=== PATIENT | male | born 1945 | race Caucasian/White ===

== ENCOUNTER → 2016-08-27 | Outpatient (CLI) | payer MEDICARE, BC ==
--- NOTE | 2016-08-27 13:49 | REP ---
Chest two views HISTORY: Dyspnea Comparison: 01/12/2016 The lungs are clear. The heart is normal in size. The pulmonary vasculature is normal in appearance. Degenerative change is present in the thoracic spine. IMPRESSION: No acute disease.
== END ==
LOC: M CLY 12:29
PROVIDERS: ATTEND Family Medicine
DX: C34.92 Malignant neoplasm of unspecified part of left bronchus or lung (principal); R06.09 Other forms of dyspnea
CPT/HCPCS: 71020; 80048; 85027; G0463

== ENCOUNTER → 2016-08-27 | Outpatient (REF) | payer MEDICARE, BC ==
[2016-08-27 17:32] LABS: MEAN CORPUSCULAR HEMOGLOBIN 23.8 pg (27.0-33.0); MEAN CORPUSCULAR HGB CONC 29.1 g/dl (32.0-36.5); MEAN CORPUSCULAR VOLUME 81.8 fl (80.0-96.0); RED CELL DISTRIBUTION WIDTH 17.6 % (11.5-14.5); WHITE BLOOD COUNT 6.8 K/mm3 (4.0-10.0)
[2016-08-27 17:57] LABS: ANION GAP 6 MEQ/L (8-16); BLOOD UREA NITROGEN 15 MG/DL (7-18); CALCIUM LEVEL 9.2 MG/DL (8.8-10.2); CARBON DIOXIDE LEVEL 29 MEQ/L (21-32); CHLORIDE LEVEL 104 MEQ/L (98-107); CREATININE FOR GFR 1.02 MG/DL (0.70-1.30); GLOMERULAR FILTRATION RATE > 60.0 (>42); GLUCOSE, FASTING 95 MG/DL (83-110); POTASSIUM SERUM 4.7 MEQ/L (3.5-5.1); SODIUM LEVEL 139 MEQ/L (136-145)
== END ==
LOC: M SFHCCLAY 12:16
PROVIDERS: ATTEND Family Medicine
DX: R06.09 Other forms of dyspnea (principal)

== ENCOUNTER → 2016-08-30 | Outpatient (CLI) | payer MEDICARE, BC ==
--- NOTE | 2016-08-30 15:21 | REP ---
MR BRAIN WITHOUT CONTRAST: HISTORY: Neoplasm. COMPARISON: 06/28/2013. Areas of increased signal intensity on T2-weighted images are present in the head of the left caudate nucleus and anterior limb of the left internal capsule and left cerebellum. These represent old lacunar infarctions. Areas of increased signal intensity on T2-weighted images are present in the periventricular and subcortical white matter and padmini. This represents small vessel ischemic disease. There is no intraparenchymal hemorrhage, acute infarct, mass or midline shift. The ventricular system and cortical sulci are dilated consistent with minimal volume loss. There is no extra cerebral collection. Minimal mucosal thickening is present in the left maxillary sinus. IMPRESSION: 1. 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 2. Small vessel ischemic disease. 3. Minimal volume loss. Signed by Rikki Marin MD 08/30/2016 03:30 P
== END ==
LOC: M PLARAD 13:57
PROVIDERS: ATTEND Family Medicine
DX: C34.92 Malignant neoplasm of unspecified part of left bronchus or lung (principal); G25.81 Restless legs syndrome

== ENCOUNTER → 2016-09-09 | Outpatient (REF) | payer MEDICARE, BC ==
[2016-09-09 17:28] LABS: FOLATE > 24.0 NG/ML (>5.4); VITAMIN B12 LEVEL 542 PG/ML (247-911)
[2016-09-09 18:12] LABS: PERCENT SATURATION 4.3 % (19.7-37.4); TOTAL IRON BINDING CAPACITY 437 UG/DL (250-450)
== END ==
LOC: M SFHCCLAY 10:55
PROVIDERS: ATTEND Family Medicine
DX: D64.9 Anemia, unspecified (principal)

== ENCOUNTER → 2016-09-12 | Outpatient (REF) | payer MEDICARE, BC ==
[2016-09-13 12:39] LABS: CREATININE FOR GFR 1.31 MG/DL (0.70-1.30); GLOMERULAR FILTRATION RATE 57.1 (>42)
== END ==
LOC: M LABDRAWC 11:31
PROVIDERS: ATTEND Psychiatry & Neurology Neurology
DX: N18.2 Chronic kidney disease, stage 2 (mild) (principal); D50.9 Iron deficiency anemia, unspecified; I12.9 Hypertensive chronic kidney disease with stage 1 through stage 4 chronic kidney disease, or unspecified chronic kidney disease

== ENCOUNTER → 2016-10-16 | Outpatient (REF) | payer MEDICARE, BC ==
[2016-10-17 11:46] LABS: MEAN CORPUSCULAR HEMOGLOBIN 26.2 pg (27.0-33.0); MEAN CORPUSCULAR HGB CONC 30.8 g/dl (32.0-36.5); WHITE BLOOD COUNT 7.7 K/mm3 (4.0-10.0)
== END ==
LOC: M SFHCCLAY 14:47
PROVIDERS: ATTEND Family Medicine
DX: D50.9 Iron deficiency anemia, unspecified (principal)
CPT/HCPCS: 83540; 83735; 85027; G0463

== ENCOUNTER → 2016-11-06 | Outpatient (CLI) | payer MEDICARE, BC ==
[~2016-11-06] MED LIST: E-Z-PAQUE 96% w/w SUSP 176GM BTL As Ordered ONE
--- NOTE | 2016-11-06 21:07 | REP ---
SMALL BOWEL FOLLOW THROUGH: The procedure was performed by FELIX White under the direct supervision of Dr. Schwab. All imaging was reviewed with Dr. Schwab prior to dictation. Standard barium and small bowel series was performed with multiple overhead radiographs. In addition the small bowel was fluoroscopically examined. Findings: The small bowel was normal in course and caliber. There are no intrinsic or extrinsic mass lesions identified. The transit time was approximately 30 minutes. The terminal ileum appears normal under fluoroscopic examination. IMPRESSION: Unremarkable small bowel series Fluoroscopy time 2 minutes and 38 seconds. Reviewed by FELIX Ferreira 11/07/2016 11:13 AEdited and Signed by Bishop Schwab MD 11/07/2016 03:08 P
== END ==
LOC: M RAD 07:50
PROVIDERS: ATTEND Physician Assistant
DX: D64.89 Other specified anemias (principal)

== ENCOUNTER → 2016-11-27 | Outpatient (REF) | payer MEDICARE, BC ==
[2016-11-27 19:50] LABS: BLOOD UREA NITROGEN 15 MG/DL (7-18); CREATININE FOR GFR 1.04 MG/DL (0.70-1.30); FERRITIN 22 NG/ML (26-388); GLOMERULAR FILTRATION RATE > 60.0 (>42)
== END ==
LOC: M LABDRAWC 16:06
PROVIDERS: ATTEND Psychiatry & Neurology Neurology
DX: D50.9 Iron deficiency anemia, unspecified (principal); I10 Essential (primary) hypertension

== ENCOUNTER → 2016-12-31 | Outpatient (REF) | payer MEDICARE, BC ==
[2016-12-31 19:12] LABS: VITAMIN B12 LEVEL 649 PG/ML (247-911)
[2016-12-31 19:32] LABS: FERRITIN 22 NG/ML (26-388); PERCENT SATURATION 30.3 % (19.7-50.0); TOTAL IRON BINDING CAPACITY 379 UG/DL (250-450); TOTAL PROTEIN 6.8 GM/DL (6.4-8.2)
[2017-01-02 11:10] LABS: ALBUMIN % 56.4 % (55.8-66.1)
[2017-01-02 11:11] LABS: ALBUMIN 3.84 GM/DL (3.29-5.55); GAMMA GLOBULIN % 10.8 % (11.1-18.8)
[2017-01-03 00:06] LABS: ENDOMYSIAL ABY IgA Negative (Negative)
== END ==
LOC: M LAB REF 17:12
PROVIDERS: ATTEND Internal Medicine Medical Oncology
DX: D50.9 Iron deficiency anemia, unspecified (principal)

== ENCOUNTER → 2017-01-28 | Outpatient (REF) | payer MEDICARE, BC | LOC: M SFHCCLAY 15:50 | PROVIDERS: ATTEND Family Medicine | DX: E11.9 Type 2 diabetes mellitus without complications (principal); Z23 Encounter for immunization | CPT/HCPCS: 83036; 90686; G0008; G0463 ==

== ENCOUNTER → 2017-02-10 | Outpatient (REF) | payer MEDICARE, BC ==
[2017-02-10 14:20] LABS: PERCENT SATURATION 36.6 % (19.7-50.0)
== END ==
LOC: M LAB REF 12:41
PROVIDERS: ATTEND Internal Medicine Medical Oncology
DX: D50.9 Iron deficiency anemia, unspecified (principal)

== ENCOUNTER → 2017-05-12 | Outpatient (REF) | payer MEDICARE, BC ==
[2017-05-12 18:53] LABS: BASO # 0.1 10^3/uL (0.0-0.2); EOS # 0.3 10^3/uL (0.0-0.50); EOS % 3.8 % (0.0-3.0); HEMATOCRIT 41.1 % (42.0-52.0); HEMOGLOBIN 13.8 g/dl (14.0-18.0); IMMATURE GRANULOCYTE % 0.4 % (0-3.0); LYMPH # 1.9 10^3/uL (1.5-4.5); LYMPH % 27.4 % (24.0-44.0); MEAN CORPUSCULAR HEMOGLOBIN 32.8 pg (27.0-33.0); MEAN CORPUSCULAR HGB CONC 33.6 g/dl (32.0-36.5); MEAN CORPUSCULAR VOLUME 97.6 fl (80.0-96.0); MONO # 0.6 10^3/uL (0.0-0.8); MONO % 9.1 % (0.0-5.0); NEUTROPHILS % 58.3 % (36.0-66.0); PLATELET COUNT, AUTOMATED 303 10^3/uL (150-450); RED BLOOD COUNT 4.21 10^6/uL (4.30-6.10); RED CELL DISTRIBUTION WIDTH 14.5 % (11.5-14.5); WHITE BLOOD COUNT 6.8 10^3/uL (4.0-10.0)
[2017-05-12 19:01] LABS: FERRITIN 74 NG/ML (26-388); IRON (FE) 104 UG/DL (65-175); TOTAL IRON BINDING CAPACITY 325 UG/DL (250-450)
== END ==
LOC: M LABDRAWC 17:45
DX: D50.9 Iron deficiency anemia, unspecified (principal); E11.9 Type 2 diabetes mellitus without complications
CPT/HCPCS: 83550

== ENCOUNTER → 2017-05-12 | Outpatient (REF) | payer MEDICARE, BC ==
[2017-05-12 17:47] LABS: ESTIMATED AVERAGE GLUCOSE 146 MG/DL (60-110); HEMOGLOBIN A1c 6.7 %
== END ==
LOC: M SFHCCLAY 10:25
DX: E11.9 Type 2 diabetes mellitus without complications (principal)

== ENCOUNTER → 2017-05-27 | Outpatient (REF) | payer MEDICARE, BC | LOC: M LAB REF 17:20 | DX: K52.9 Noninfective gastroenteritis and colitis, unspecified (principal); R15.9 Full incontinence of feces; R10.10 Upper abdominal pain, unspecified; K22.70 Barrett's esophagus without dysplasia; K21.9 Gastro-esophageal reflux disease without esophagitis; D50.0 Iron deficiency anemia secondary to blood loss (chronic); R63.0 Anorexia | CPT/HCPCS: 83993 ==

== ENCOUNTER → 2017-05-28 | Outpatient (REF) | payer MEDICARE, BC ==
[2017-05-28 18:07] LABS: CREATININE FOR GFR 1.13 MG/DL (0.70-1.30); GLOMERULAR FILTRATION RATE > 60.0 (>42)
[2017-05-28 18:07] LABS: BLOOD UREA NITROGEN 17 MG/DL (7-18)
== END ==
LOC: M LABDRAWC 17:53
DX: D50.0 Iron deficiency anemia secondary to blood loss (chronic) (principal); R10.10 Upper abdominal pain, unspecified
CPT/HCPCS: 82565

== ENCOUNTER → 2017-05-29 | Outpatient (CLI) | payer MEDICARE, BC ==
[~2017-05-29] MED LIST changes: -E-Z-PAQUE 96% w/w SUSP 176GM BTL As Ordered ONE; +GASTROGRAFIN SOLUTION 30ML (Q9963) As Ordered; +ISOVUE-370 76% 100ML VIAL (Q9967) As Ordered
== END ==
LOC: M RAD 12:25
DX: D50.0 Iron deficiency anemia secondary to blood loss (chronic) (principal); R10.10 Upper abdominal pain, unspecified
CPT/HCPCS: Q9963

== ENCOUNTER → 2017-07-21 | Outpatient (REF) | payer MEDICARE, BC ==
[2017-07-21 14:40] LABS: FERRITIN 38 NG/ML (26-388); IRON (FE) 85 UG/DL (65-175); PERCENT SATURATION 22.7 % (19.7-50.0); TOTAL IRON BINDING CAPACITY 374 UG/DL (250-450)
== END ==
LOC: M LAB REF 13:35
DX: D50.9 Iron deficiency anemia, unspecified (principal)
CPT/HCPCS: 83550

== ENCOUNTER → 2017-10-15 | Outpatient (CLI) | payer MEDICARE, BC | LOC: M CLY 15:36 | DX: R07.81 Pleurodynia (principal); Z87.81 Personal history of (healed) traumatic fracture; R91.8 Other nonspecific abnormal finding of lung field | CPT/HCPCS: 71101; G0463 ==

== ENCOUNTER → 2017-10-21 | Outpatient (REF) | payer MEDICARE, BC ==
[2017-10-21 11:54] LABS: BASO # 0.1 10^3/uL (0.0-0.2); EOS # 0.3 10^3/uL (0.0-0.50); EOS % 3.4 % (0.0-3.0); HEMATOCRIT 41.5 % (42.0-52.0); HEMOGLOBIN 13.9 g/dl (13.5-17.5); IMMATURE GRANULOCYTE % 0.2 % (0-3.0); LYMPH # 2.2 10^3/uL (1.5-4.5); LYMPH % 25.9 % (24.0-44.0); MEAN CORPUSCULAR HEMOGLOBIN 32.7 pg (27.0-33.0); MEAN CORPUSCULAR HGB CONC 33.5 g/dl (32.0-36.5); MEAN CORPUSCULAR VOLUME 97.6 fl (80.0-96.0); MONO # 0.7 10^3/uL (0.0-0.8); MONO % 8.7 % (0.0-5.0); NEUTROPHILS # 5.1 10^3/uL (1.8-7.7); NEUTROPHILS % 60.8 % (36.0-66.0); PLATELET COUNT, AUTOMATED 368 10^3/uL (150-450); RED BLOOD COUNT 4.25 10^6/uL (4.30-6.10); RED CELL DISTRIBUTION WIDTH 13.9 % (11.5-14.5); WHITE BLOOD COUNT 8.4 10^3/uL (4.0-10.0)
[2017-10-21 12:16] LABS: VITAMIN B12 LEVEL 523 PG/ML (247-911)
[2017-10-21 12:24] LABS: FERRITIN 65 NG/ML (26-388); IRON (FE) 69 UG/DL (65-175); PERCENT SATURATION 21.8 % (19.7-50.0); TOTAL IRON BINDING CAPACITY 317 UG/DL (250-450)
[2017-10-24 00:07] LABS: Methylmalonic Acid 374 nmol/L (0-378)
== END ==
LOC: M LABDRAWC 11:42
DX: D64.9 Anemia, unspecified (principal); R07.81 Pleurodynia; E11.9 Type 2 diabetes mellitus without complications; I10 Essential (primary) hypertension; Z95.1 Presence of aortocoronary bypass graft
CPT/HCPCS: 83550

== ENCOUNTER → 2017-10-21 | Outpatient (REF) | payer MEDICARE, BC ==
[2017-10-21 12:15] LABS: ALBUMIN 3.4 GM/DL (3.2-5.2); ALBUMIN/GLOBULIN RATIO 0.97 (1.00-1.93); ALKALINE PHOSPHATASE 159 U/L (45-117); ALT/SGPT 24 U/L (12-78); ANION GAP 9 MEQ/L (8-16); AST/SGOT 16 U/L (7-37); BILIRUBIN,TOTAL 0.4 MG/DL (0.2-1.0); BLOOD UREA NITROGEN 20 MG/DL (7-18); CALCIUM LEVEL 8.9 MG/DL (8.8-10.2); CARBON DIOXIDE LEVEL 25 MEQ/L (21-32); CHLORIDE LEVEL 107 MEQ/L (98-107); CHOLESTEROL LEVEL 141 MG/DL (<200); CHOLESTEROL RISK RATIO 3.525 (<5); CREATININE FOR GFR 1.28 MG/DL (0.70-1.30); GLOMERULAR FILTRATION RATE 58.5 (>42); GLUCOSE, FASTING 91 MG/DL (70-100); HDL CHOLESTEROL 40 MG/DL (>40); NON-HDL-C 101 MG/DL; POTASSIUM SERUM 4.1 MEQ/L (3.5-5.1); SODIUM LEVEL 141 MEQ/L (136-145); TOTAL PROTEIN 6.9 GM/DL (6.4-8.2); TRIGLYCERIDES LEVEL 145 MG/DL (<150)
[2017-10-21 12:40] LABS: ESTIMATED AVERAGE GLUCOSE 137 MG/DL (60-110); HEMOGLOBIN A1c 6.4 %
== END ==
LOC: M SFHCCLAY 08:27
DX: E11.9 Type 2 diabetes mellitus without complications (principal); I10 Essential (primary) hypertension; Z95.1 Presence of aortocoronary bypass graft
CPT/HCPCS: 80053

== ENCOUNTER → 2017-12-01 | Outpatient (REF) | payer MEDICARE, BC ==
[2017-12-01 13:38] LABS: CREATININE FOR GFR 1.25 MG/DL (0.70-1.30); GLOMERULAR FILTRATION RATE > 60.0 (>42)
[2017-12-01 13:38] LABS: BLOOD UREA NITROGEN 24 MG/DL (7-18)
== END ==
LOC: M LABDRAWC 11:25
DX: Z48.812 Encounter for surgical aftercare following surgery on the circulatory system (principal)
CPT/HCPCS: 82565

== ENCOUNTER → 2018-01-01 | Outpatient (CLI) | payer MEDICARE, BC | LOC: M RAD 11:16 | DX: R91.1 Solitary pulmonary nodule (principal); Z90.2 Acquired absence of lung [part of] | CPT/HCPCS: 71250 ==

== ENCOUNTER → 2018-02-19 | Outpatient (REF) | payer MEDICARE, BC ==
[2018-02-19 17:28] LABS: BASO # 0.1 10^3/uL (0.0-0.2); BASO % 0.9 % (0.0-1.0); EOS # 0.2 10^3/uL (0.0-0.50); HEMATOCRIT 43.1 % (42.0-52.0); HEMOGLOBIN 14.3 g/dl (13.5-17.5); IMMATURE GRANULOCYTE % 0.3 % (0-3.0); LYMPH # 2.1 10^3/uL (1.5-4.5); LYMPH % 27.9 % (24.0-44.0); MEAN CORPUSCULAR HEMOGLOBIN 32.9 pg (27.0-33.0); MEAN CORPUSCULAR HGB CONC 33.2 g/dl (32.0-36.5); MEAN CORPUSCULAR VOLUME 99.1 fl (80.0-96.0); MONO # 0.5 10^3/uL (0.0-0.8); MONO % 6.7 % (0.0-5.0); NEUTROPHILS # 4.6 10^3/uL (1.8-7.7); NEUTROPHILS % 61.2 % (36.0-66.0); PLATELET COUNT, AUTOMATED 296 10^3/uL (150-450); RED BLOOD COUNT 4.35 10^6/uL (4.30-6.10); RED CELL DISTRIBUTION WIDTH 14.4 % (11.5-14.5); WHITE BLOOD COUNT 7.6 10^3/uL (4.0-10.0)
[2018-02-19 17:46] LABS: FERRITIN 36 NG/ML (26-388); IRON (FE) 91 UG/DL (65-175); TOTAL IRON BINDING CAPACITY 337 UG/DL (250-450); VITAMIN B12 LEVEL 857 PG/ML (247-911)
== END ==
LOC: M LABDRAWC 16:27
DX: D50.9 Iron deficiency anemia, unspecified (principal); Z85.118 Personal history of other malignant neoplasm of bronchus and lung
CPT/HCPCS: 83550

== ENCOUNTER → 2018-08-06 | Outpatient (REF) | payer MEDICARE, BC ==
[~2018-08-06] MED LIST changes: +ATOR80TA59 PO; +CLOP75TA2 PO; -GASTROGRAFIN SOLUTION 30ML (Q9963) As Ordered; +INDA125TA PO; -ISOVUE-370 76% 100ML VIAL (Q9967) As Ordered; +LEVE500T88 PO; +METF500T13; +MIRT30TA3; +MULTCAP PO; +NITR0.1S; +OMEP40CA2 PO; +POTA1TAB23; +SERT25TA88 PO; +TELM1TAB37 PO; +VITA100066 PO
[2018-08-06 16:56] LABS: BLOOD UREA NITROGEN 16 MG/DL (7-18); CALCIUM LEVEL 9.3 MG/DL (8.8-10.2); CARBON DIOXIDE LEVEL 30 MEQ/L (21-32); CHLORIDE LEVEL 106 MEQ/L (98-107); CHOLESTEROL LEVEL 158 MG/DL (<200); CHOLESTEROL RISK RATIO 3.674 (<5); GLOMERULAR FILTRATION RATE > 60.0 (>42); GLUCOSE, FASTING 97 MG/DL (70-100); HDL CHOLESTEROL 43 MG/DL (>40); LDL CHOLESTEROL 87 MG/DL (<100); NON-HDL-C 115 MG/DL; POTASSIUM SERUM 4.7 MEQ/L (3.5-5.1); SODIUM LEVEL 140 MEQ/L (136-145); TRIGLYCERIDES LEVEL 138 MG/DL (<150)
[2018-08-06 17:12] LABS: CREATININE, URINE 94.7 MG/DL; MALB URINE SIEMENS 5.2 MG/L; MAU/CREAT RATIO 5.4 MCG/MG (0.0-30.0)
[2018-08-06 18:24] LABS: HEMOGLOBIN A1c 6.3 %
== END ==
LOC: M SFHCCLAY 10:34
PROVIDERS: ATTEND Family Medicine
DX: E11.9 Type 2 diabetes mellitus without complications (principal); Z13.220 Encounter for screening for lipoid disorders

== ENCOUNTER → 2018-10-12 | Outpatient (CLI) | payer MEDICARE, BC ==
[~2018-10-12] MED LIST changes: +ASPI81TA85 PO; +CIDA500T2 PO; +MAGN1TAB39 PO; +MIRT1TAB16 PO; -POTA1TAB23; +POTA1TAB23 PO; +[UNRECOGNIZED DRUG - CODE] PO
--- NOTE | 2018-10-12 10:09 | REP ---
Clinical: Acute renal insufficiency. Azotemia. Technique: Real time mata scale ultrasound examination using curved array transducer. Findings: The bilateral kidneys are relatively normal in contour, size, echogenicity, and reniform shape without hydronephrosis, nephrolithiasis, cystic or renal mass lesion. Perinephric fluid collection. Right kidney measures 10.6 x 5.1 x 4.2 cm. Left kidney measures 10.6 x 4.2 x 5.2 cm. Bladder is grossly unremarkable. Impression: Normal renal ultrasound. Electronically Signed by Austin Read MD 10/12/2018 10:01 A
== END ==
LOC: M RAD 09:38
PROVIDERS: ATTEND Internal Medicine Medical Oncology
DX: R79.89 Other specified abnormal findings of blood chemistry (principal)

== ENCOUNTER → 2018-11-26 | Outpatient (REF) | payer MEDICARE, BC ==
[~2018-11-26] MED LIST changes: +FLOM0.4C39 PO
[2018-11-26 19:29] LABS: HEMOGLOBIN A1c 6.2 %
[2018-11-28 15:06] LABS: Lyme Disease IgG/IgM Antibodie <0.91 ISR (0.00-0.90); Lyme Disease IgM Ab Quantitati <0.80 index (0.00-0.79)
== END ==
LOC: M SFHCCLAY 10:17
PROVIDERS: ATTEND Family Medicine
DX: E11.9 Type 2 diabetes mellitus without complications (principal); A69.20 Lyme disease, unspecified

== ENCOUNTER → 2019-02-22 | Outpatient (CLI) | payer MEDICARE, BC ==
[~2019-02-22] MED LIST changes: +IRONTAB3 PO; -OMEP40CA2 PO; +OMEP40CA97 PO; +SERT25TA21 PO; -SERT25TA88 PO
[2019-02-22 12:31] LABS: BASO # 0.1 10^3/uL (0.0-0.2); BASO % 1.1 % (0.0-1.0); EOS # 0.3 10^3/uL (0.0-0.5); EOS % 2.8 % (0.0-3.0); HEMATOCRIT 38.7 % (42.0-52.0); HEMOGLOBIN 12.3 g/dl (13.5-17.5); LYMPH % 21.1 % (24.0-44.0); MEAN CORPUSCULAR HEMOGLOBIN 31.3 pg (27.0-33.0); MEAN CORPUSCULAR HGB CONC 31.8 g/dl (32.0-36.5); MEAN CORPUSCULAR VOLUME 98.5 fl (80.0-96.0); MONO # 0.9 10^3/uL (0.0-0.8); MONO % 9.2 % (0.0-5.0); NEUTROPHILS # 6.1 10^3/uL (1.5-8.5); NEUTROPHILS % 65.5 % (36.0-66.0); PLATELET COUNT, AUTOMATED 384 10^3/uL (150-450); RED BLOOD COUNT 3.93 10^6/uL (4.30-6.10); WHITE BLOOD COUNT 9.3 10^3/uL (4.0-10.0)
[2019-02-22 12:36] LABS: INR 0.98; PARTIAL THROMBOPLASTIN TIME 36.1 SECONDS (25.0-38.4); PROTHROMBIN TIME 12.7 SECONDS (11.8-14.0)
[2019-02-22 12:52] LABS: CALCIUM LEVEL 9.7 MG/DL (8.8-10.2); CREATININE FOR GFR 1.4 MG/DL (0.70-1.30); GLOMERULAR FILTRATION RATE 52.6 (>42); POTASSIUM SERUM 4.9 MEQ/L (3.5-5.1)
== END ==
LOC: M LAB 11:35
PROVIDERS: ATTEND Surgery Vascular Surgery
DX: Z01.818 Encounter for other preprocedural examination (principal); D69.8 Other specified hemorrhagic conditions

== ENCOUNTER → 2019-03-26 | Outpatient (REF) | payer MEDICARE, BC | LOC: M SFHCCLAY 12:12 | PROVIDERS: ATTEND Family Medicine | DX: Z12.5 Encounter for screening for malignant neoplasm of prostate (principal); E11.9 Type 2 diabetes mellitus without complications; Z53.8 Procedure and treatment not carried out for other reasons ==

== ENCOUNTER → 2019-03-29 | Outpatient (REF) | payer MEDICARE, BC ==
[2019-03-29 16:59] LABS: CALCIUM LEVEL 9.8 MG/DL (8.8-10.2); CREATININE FOR GFR 1.29 MG/DL (0.70-1.30); GLOMERULAR FILTRATION RATE 57.8 (>42); POTASSIUM SERUM 5.3 MEQ/L (3.5-5.1)
[2019-03-29 18:16] LABS: HEMOGLOBIN A1c 6.7 %
== END ==
LOC: M SFHCCLAY 11:51
PROVIDERS: ATTEND Family Medicine
DX: Z12.5 Encounter for screening for malignant neoplasm of prostate (principal); E11.9 Type 2 diabetes mellitus without complications
CPT/HCPCS: 80048; 83036; G0103

== ENCOUNTER → 2019-03-31 | Outpatient (REF) | payer MEDICARE, BC | LOC: M SFHCCLAY 09:02 | PROVIDERS: ATTEND Family Medicine | DX: E87.5 Hyperkalemia (principal) ==

== ENCOUNTER → 2019-06-22 | Outpatient (REF) | payer MEDICARE, BC ==
[~2019-06-22] MED LIST changes: +FINA5TAB2 PO
[2019-06-22 17:07] LABS: CALCIUM LEVEL 9.1 MG/DL (8.8-10.2); CREATININE FOR GFR 1.45 MG/DL (0.70-1.30); GLOMERULAR FILTRATION RATE 50.4 (>42); POTASSIUM SERUM 4.8 MEQ/L (3.5-5.1)
[2019-06-22 17:08] LABS: BASO # 0.1 10^3/uL (0.0-0.2); BASO % 1.3 % (0.0-1.0); EOS # 0.3 10^3/uL (0.0-0.5); EOS % 3.2 % (0.0-3.0); HEMATOCRIT 29.7 % (42.0-52.0); HEMOGLOBIN 9.4 g/dl (13.5-17.5); LYMPH # 1.5 10^3/uL (1.5-5.0); LYMPH % 17.1 % (24.0-44.0); MEAN CORPUSCULAR HEMOGLOBIN 29.2 pg (27.0-33.0); MEAN CORPUSCULAR HGB CONC 31.6 g/dl (32.0-36.5); MEAN CORPUSCULAR VOLUME 92.2 fl (80.0-96.0); MONO # 1.2 10^3/uL (0.0-0.8); MONO % 13.7 % (0.0-5.0); NEUTROPHILS # 5.8 10^3/uL (1.5-8.5); NEUTROPHILS % 64.5 % (36.0-66.0); PLATELET COUNT, AUTOMATED 624 10^3/uL (150-450); RED BLOOD COUNT 3.22 10^6/uL (4.30-6.10)
== END ==
LOC: M SFHCCLAY 11:28
PROVIDERS: ATTEND Family Medicine
DX: D64.9 Anemia, unspecified (principal); I10 Essential (primary) hypertension
CPT/HCPCS: 80048; 83540; 85025; G0463

== ENCOUNTER → 2019-06-29 | Outpatient (CLI) | payer MEDICARE, BC ==
[~2019-06-29] MED LIST changes: +ISOVUE-370 76% 100ML VIAL (Q9967) As Ordered ONE
--- NOTE | 2019-06-29 12:05 | REP ---
REASON FOR EXAM: Dyspnea. COMPARISON: 07/24/2018, the latest prior. CONTRAST: 100 mL Isovue 370. There is excellent visualization of the pulmonary arterial vasculature. There are no focal filling defects present that would be considered consistent with pulmonary emboli. There is no mediastinal or hilar adenopathy. There are no pleural or pericardial effusions. The imaged upper abdomen is within normal limits. The proximal portion of an aortic stent graft is visualized. Bone window technique throughout the exam shows the osseous structures to be stable from the prior exam. There are old healed left sided rib fractures. Evaluation of the lung ayoub show stable appearing chronic changes. There are bibasilar opacities most consistent with subsegmental atelectatic changes and chronic lung base changes which appear stable. No new parenchymal abnormalities are identified. IMPRESSION: 1. There is no evidence of a pulmonary embolism. 2. There are some chronic lung field changes which appear stable and other lung field changes as described above. There is no evidence of acute disease. Electronically Signed by Gilberto Zuniga DO 06/29/2019 12:32 P
== END ==
LOC: M RAD 10:35
PROVIDERS: ATTEND Internal Medicine Medical Oncology
DX: R06.02 Shortness of breath (principal); R00.2 Palpitations; Z95.5 Presence of coronary angioplasty implant and graft
CPT/HCPCS: 71275; Q9967

== ENCOUNTER → 2019-07-12 | Outpatient (REF) | payer MEDICARE, BC ==
[~2019-07-12] MED LIST changes: -ISOVUE-370 76% 100ML VIAL (Q9967) As Ordered ONE
[2019-07-12 11:36] LABS: HEMATOCRIT 30.1 % (42.0-52.0); HEMOGLOBIN 9.4 g/dl (13.5-17.5); MEAN CORPUSCULAR HEMOGLOBIN 29.7 pg (27.0-33.0); MEAN CORPUSCULAR HGB CONC 31.2 g/dl (32.0-36.5); MEAN CORPUSCULAR VOLUME 95.3 fl (80.0-96.0); PLATELET COUNT, AUTOMATED 555 10^3/uL (150-450); RED BLOOD COUNT 3.16 10^6/uL (4.30-6.10); WHITE BLOOD COUNT 11.1 10^3/uL (4.0-10.0)
[2019-07-12 11:53] LABS: BLOOD UREA NITROGEN 30 MG/DL (7-18); CALCIUM LEVEL 9.8 MG/DL (8.8-10.2); CARBON DIOXIDE LEVEL 26 MEQ/L (21-32); CHLORIDE LEVEL 103 MEQ/L (98-107); CREATININE FOR GFR 1.18 MG/DL (0.70-1.30); GLOMERULAR FILTRATION RATE > 60.0 (>42); GLUCOSE, FASTING 93 MG/DL (70-100); IRON (FE) 56 UG/DL (65-175); POTASSIUM SERUM 4.4 MEQ/L (3.5-5.1); SODIUM LEVEL 136 MEQ/L (136-145)
[2019-07-12 12:28] LABS: HEMOGLOBIN A1c 6.2 %
== END ==
LOC: M SFHCCLAY 08:31
PROVIDERS: ATTEND Family Medicine
DX: D50.9 Iron deficiency anemia, unspecified (principal); E11.9 Type 2 diabetes mellitus without complications

== ENCOUNTER → 2019-07-20 | Outpatient (REF) | payer MEDICARE, BC ==
[2019-07-20 12:25] LABS: BLOOD UREA NITROGEN 28 MG/DL (7-18); CALCIUM LEVEL 9.6 MG/DL (8.8-10.2); CARBON DIOXIDE LEVEL 25 MEQ/L (21-32); CHLORIDE LEVEL 104 MEQ/L (98-107); CREATININE FOR GFR 1.21 MG/DL (0.70-1.30); GLOMERULAR FILTRATION RATE > 60.0 (>42); GLUCOSE, FASTING 95 MG/DL (70-100); POTASSIUM SERUM 4.6 MEQ/L (3.5-5.1); SODIUM LEVEL 136 MEQ/L (136-145)
== END ==
LOC: M LABDRAWC 11:28
PROVIDERS: ATTEND Internal Medicine Gastroenterology
DX: D50.9 Iron deficiency anemia, unspecified (principal); K22.70 Barrett's esophagus without dysplasia; R13.10 Dysphagia, unspecified; Z86.010 Personal history of colon polyps; E11.9 Type 2 diabetes mellitus without complications

== ENCOUNTER → 2019-07-20 | Outpatient (REF) | payer MEDICARE, BC ==
[2019-07-20 12:02] LABS: HEMATOCRIT 28.6 % (42.0-52.0); HEMOGLOBIN 8.8 g/dl (13.5-17.5); MEAN CORPUSCULAR HEMOGLOBIN 30.3 pg (27.0-33.0); MEAN CORPUSCULAR HGB CONC 30.8 g/dl (32.0-36.5); MEAN CORPUSCULAR VOLUME 98.6 fl (80.0-96.0); PLATELET COUNT, AUTOMATED 568 10^3/uL (150-450); WHITE BLOOD COUNT 9.3 10^3/uL (4.0-10.0)
== END ==
LOC: M SFHCCLAY 07:58
PROVIDERS: ATTEND Family Medicine
DX: Z01.818 Encounter for other preprocedural examination (principal); D50.9 Iron deficiency anemia, unspecified; Z11.59 Encounter for screening for other viral diseases
CPT/HCPCS: 85027; U0002

== ENCOUNTER → 2019-07-28 | Outpatient (REF) | payer MEDICARE, BC ==
[2019-07-28 11:36] LABS: HEMOGLOBIN 9.9 g/dl (13.5-17.5); MEAN CORPUSCULAR HEMOGLOBIN 31.2 pg (27.0-33.0); MEAN CORPUSCULAR HGB CONC 30.9 g/dl (32.0-36.5); MEAN CORPUSCULAR VOLUME 100.9 fl (80.0-96.0); PLATELET COUNT, AUTOMATED 479 10^3/uL (150-450); RED BLOOD COUNT 3.17 10^6/uL (4.30-6.10); WHITE BLOOD COUNT 8.2 10^3/uL (4.0-10.0)
[2019-07-28 11:40] LABS: CALCIUM LEVEL 9.3 MG/DL (8.8-10.2); CREATININE FOR GFR 1.38 MG/DL (0.70-1.30); GLOMERULAR FILTRATION RATE 53.3 (>42); POTASSIUM SERUM 4.5 MEQ/L (3.5-5.1)
== END ==
LOC: M SFHCCLAY 09:17
PROVIDERS: ATTEND Family Medicine
DX: D50.9 Iron deficiency anemia, unspecified (principal)

== ENCOUNTER → 2019-08-06 | Outpatient (CLI) | payer MEDICARE, BC ==
[~2019-08-06] MED LIST changes: +E-Z-HD 98% w/w 340GM SUSP BTL As Ordered ONE; +E-Z-PAQUE 96% w/w SUSP 176GM BTL As Ordered ONE; +EMER1CHW PO
--- NOTE | 2019-08-06 16:21 | REP ---
Small bowel follow-through The procedure was performed under the direct supervision of Dr. Schwab. The images were reviewed with Dr. Schwab. The insulator tester film shows no organomegaly or pathological masses. The intestinal gas pattern is nonspecific. The patient is status post aortic stent graft. Liquid barium was administered and the barium column was followed through the small bowel to the level of the terminal ileum. Small bowel transit time is approximately 5 hours and 35 minutes . During fluoroscopy gentle palpation shows all loops are freely movable and pliable. There are no fixed or angulated loops. The small bowel mucosal pattern is normal in course and caliber. There is no transition to suggest a partial small bowel obstruction. Spot filming of the terminal ileum shows it to be unremarkable. Impression: Small bowel follow-through examination within normal limits. 1.2 minutes of fluoro time was utilized for this procedure. Electronically Signed by FELIX Youngblood 08/06/2019 04:11 P Electronically Signed by Bishop Schwab MD 08/06/2019 04:12 P
== END ==
LOC: M RAD 07:54
PROVIDERS: ATTEND Internal Medicine Gastroenterology
DX: D50.9 Iron deficiency anemia, unspecified (principal)

== ENCOUNTER → 2019-08-11 | Outpatient (REF) | payer MEDICARE, BC ==
[~2019-08-11] MED LIST changes: -E-Z-HD 98% w/w 340GM SUSP BTL As Ordered ONE; -E-Z-PAQUE 96% w/w SUSP 176GM BTL As Ordered ONE
== END ==
LOC: M SFHCCLAY 08:20
PROVIDERS: ATTEND Family Medicine
DX: D50.0 Iron deficiency anemia secondary to blood loss (chronic) (principal)

== ENCOUNTER → 2019-08-12 | Outpatient (REF) | payer MEDICARE, BC ==
[2019-08-12 18:24] LABS: BLOOD UREA NITROGEN 16 MG/DL (7-18); CALCIUM LEVEL 9.2 MG/DL (8.8-10.2); CARBON DIOXIDE LEVEL 27 MEQ/L (21-32); CHLORIDE LEVEL 105 MEQ/L (98-107); GLOMERULAR FILTRATION RATE > 60.0 (>42); GLUCOSE, FASTING 112 MG/DL (70-100); IRON (FE) 54 UG/DL (65-175); POTASSIUM SERUM 4.5 MEQ/L (3.5-5.1); SODIUM LEVEL 137 MEQ/L (136-145)
[2019-08-12 18:30] LABS: HEMATOCRIT 36.2 % (42.0-52.0); HEMOGLOBIN 10.9 g/dl (13.5-17.5); MEAN CORPUSCULAR HEMOGLOBIN 30.4 pg (27.0-33.0); MEAN CORPUSCULAR HGB CONC 30.1 g/dl (32.0-36.5); MEAN CORPUSCULAR VOLUME 101.1 fl (80.0-96.0); PLATELET COUNT, AUTOMATED 486 10^3/uL (150-450); RED BLOOD COUNT 3.58 10^6/uL (4.30-6.10); WHITE BLOOD COUNT 7.9 10^3/uL (4.0-10.0)
== END ==
LOC: M SFHCCLAY 09:40
PROVIDERS: ATTEND Family Medicine
DX: D50.0 Iron deficiency anemia secondary to blood loss (chronic) (principal)

== ENCOUNTER → 2019-09-03 | Outpatient (REF) | payer MEDICARE, BC ==
[~2019-09-03] MED LIST changes: +ASPI-161 PO; -ASPI81TA85 PO; +ASPI81TA86 PO; +C 50TAB PO; +D31000TA2 PO; +FERR1TAB8 PO; +GLUCTAB6 PO; +KEYT1INJ IV; +MAGN64TASA PO; -METF500T13; +METF500T13 PO; +PATIENT COMMENT; +POTA10TA14 PO; +PRED10TA2 PO; +QUES4POW PO; +REME30TA PO; +VITMTA PO; +[UNRECOGNIZED DRUG - CODE] SL
[2019-09-03 11:57] LABS: HEMATOCRIT 32.9 % (42.0-52.0); HEMOGLOBIN 10.3 g/dl (13.5-17.5); MEAN CORPUSCULAR HEMOGLOBIN 30.5 pg (27.0-33.0); MEAN CORPUSCULAR HGB CONC 31.3 g/dl (32.0-36.5); MEAN CORPUSCULAR VOLUME 97.3 fl (80.0-96.0); PLATELET COUNT, AUTOMATED 426 10^3/uL (150-450); RED BLOOD COUNT 3.38 10^6/uL (4.30-6.10); WHITE BLOOD COUNT 8.4 10^3/uL (4.0-10.0)
== END ==
LOC: M SFHCCLAY 11:18
PROVIDERS: ATTEND Family Medicine
DX: K92.2 Gastrointestinal hemorrhage, unspecified (principal); D64.9 Anemia, unspecified
CPT/HCPCS: 36415; 83540; 85027; G0463

== ENCOUNTER 2019-09-09 09:00 | Outpatient (CLI) | payer MEDICARE, BC ==
[~2019-09-09] VITALS: Ht 172.7 cm; Wt 72.7 kg
[~2019-09-09 09:00] MED LIST changes: -ASPI-161 PO; +ASPI81TA85 PO; -ASPI81TA86 PO; -C 50TAB PO; -D31000TA2 PO; -FERR1TAB8 PO; -GLUCTAB6 PO; -KEYT1INJ IV; -MAGN64TASA PO; +METF500T13; -METF500T13 PO; -PATIENT COMMENT; -POTA10TA14 PO; -PRED10TA2 PO; -QUES4POW PO; -REME30TA PO; -VITMTA PO; -[UNRECOGNIZED DRUG - CODE] SL
[2019-09-09] MEDS ORDERED: IRON SUCROSE 500 MG in NS 250 ML IV ONE (09:15)
[2019-09-09 09:20] VITALS: BP 176/78
[2019-09-09 09:53] VITALS: BP 128/68
[2019-09-09 10:55] VITALS: BP 131/70
[2019-09-09 12:00] VITALS: BP 139/74
[2019-09-09 12:45] VITALS: BP 150/65
== END 2019-09-09 12:45 | disposition home or self-care (01) ==
LOC: M INFU 09:00
PROVIDERS: ATTEND Family Medicine
DX: D50.9 Iron deficiency anemia, unspecified (principal); K92.2 Gastrointestinal hemorrhage, unspecified; Z88.8 Allergy status to other drugs, medicaments and biological substances
CPT/HCPCS: 96365; 96366; J1756

== ENCOUNTER → 2019-09-20 | Outpatient (REF) | payer MEDICARE, BC ==
[~2019-09-20] MED LIST changes: +ASPI-161 PO; -ASPI81TA85 PO; +ASPI81TA86 PO; +C 50TAB PO; +D31000TA2 PO; +FERR1TAB8 PO; +GLUCTAB6 PO; +KEYT1INJ IV; +MAGN64TASA PO; -METF500T13; +METF500T13 PO; +PATIENT COMMENT; +POTA10TA14 PO; +PRED10TA2 PO; +QUES4POW PO; +REME30TA PO; +VITMTA PO; +[UNRECOGNIZED DRUG - CODE] SL
[2019-09-20 12:58] LABS: HEMATOCRIT 36.7 % (42.0-52.0); HEMOGLOBIN 11.3 g/dl (13.5-17.5); MEAN CORPUSCULAR HEMOGLOBIN 30.9 pg (27.0-33.0); MEAN CORPUSCULAR HGB CONC 30.8 g/dl (32.0-36.5); MEAN CORPUSCULAR VOLUME 100.3 fl (80.0-96.0); PLATELET COUNT, AUTOMATED 434 10^3/uL (150-450); RED BLOOD COUNT 3.66 10^6/uL (4.30-6.10); WHITE BLOOD COUNT 9.1 10^3/uL (4.0-10.0)
[2019-09-23 15:09] LABS: BRUCELLA ABORTUS ANTIBODY Negative (Negative); E CHAFFEENSIS IgG TITER Negative (Neg:<1:64); E CHAFFEENSIS IgM TITER Negative (Neg:<1:20); HUMAN GRANULCYTIC EHRLIC IgG Negative (Neg:<1:64); HUMAN GRANULCYTIC EHRLIC IgM Negative (Neg:<1:20); IgG P18 AB Absent (.); IgG P23 AB Absent (.); IgG P28 AB Absent (.); IgG P30 AB Absent (.); IgG P39 AB Absent (.); IgG P41 AB Present (.); IgG P45 AB Absent (.); IgG P66 AB Absent (.); IgG P93 AB Absent (.); IgM P23 AB Absent (.); IgM P39 AB Absent (.); IgM P41 AB Absent (.); LYME IgG WB INTERPRETATION Negative (.); LYME IgM WB INTERPRETATION Negative (.)
== END ==
LOC: M SFHCCLAY 07:28
PROVIDERS: ATTEND Family Medicine
DX: D50.0 Iron deficiency anemia secondary to blood loss (chronic) (principal)

== ENCOUNTER 2019-09-30 09:19 | Outpatient (CLI) | payer MEDICARE, BC ==
[~2019-09-30] VITALS: Ht 172.7 cm; Wt 72.0 kg
[~2019-09-30 09:19] MED LIST changes: -ASPI-161 PO; -C 50TAB PO; -D31000TA2 PO; -FERR1TAB8 PO; -GLUCTAB6 PO; -KEYT1INJ IV; -MAGN64TASA PO; -PATIENT COMMENT; -POTA10TA14 PO; -PRED10TA2 PO; -QUES4POW PO; -REME30TA PO; -VITMTA PO; -[UNRECOGNIZED DRUG - CODE] SL
[2019-09-30] MEDS ORDERED: IRON SUCROSE 500 MG in NS 250 ML IV ONE (09:45)
[2019-09-30 09:59] VITALS: BP 161/67
[2019-09-30 11:20] VITALS: BP 136/62
[2019-09-30 12:30] VITALS: BP 141/68
[2019-09-30 13:30] VITALS: BP 152/70
[2019-09-30 14:30] VITALS: BP 130/58
[2020-01-25] MEDS ORDERED: PRED10TA2 PO (13:30)
== END 2019-09-30 14:35 | disposition home or self-care (01) ==
LOC: M INFU 09:19
PROVIDERS: ATTEND Family Medicine
DX: D50.9 Iron deficiency anemia, unspecified (principal); Z79.899 Other long term (current) drug therapy
CPT/HCPCS: 96365; 96366; J1756

== ENCOUNTER → 2019-10-20 | Outpatient (REF) | payer MEDICARE, BC ==
[~2019-10-20] MED LIST changes: +ASPI-161 PO; +C 50TAB PO; +D31000TA2 PO; +FERR1TAB8 PO; +GLUCTAB6 PO; +KEYT1INJ IV; +MAGN64TASA PO; +PATIENT COMMENT; +POTA10TA14 PO; +PRED10TA2 PO; +QUES4POW PO; +REME30TA PO; +VITMTA PO; +[UNRECOGNIZED DRUG - CODE] SL
[2019-11-18 10:51] LABS: HEMATOCRIT 37.9 % (42.0-52.0); MEAN CORPUSCULAR HEMOGLOBIN 31.6 pg (27.0-33.0); MEAN CORPUSCULAR HGB CONC 31.7 g/dl (32.0-36.5); MEAN CORPUSCULAR VOLUME 99.7 fl (80.0-96.0); PLATELET COUNT, AUTOMATED 422 10^3/uL (150-450); WHITE BLOOD COUNT 9.6 10^3/uL (4.0-10.0)
[2019-12-04 12:15] LABS: PERCENT SATURATION 18.3 % (19.7-50.0)
== END ==
LOC: M SFHCCLAY 11:54
PROVIDERS: ATTEND Family Medicine
DX: D50.9 Iron deficiency anemia, unspecified (principal)

== ENCOUNTER → 2019-11-16 | Outpatient (REF) | payer MEDICARE, BC ==
[2019-11-16 14:21] LABS: HEMATOCRIT 33.3 % (42.0-52.0); HEMOGLOBIN 10.8 g/dl (13.5-17.5); MEAN CORPUSCULAR HEMOGLOBIN 32.4 pg (27.0-33.0); MEAN CORPUSCULAR HGB CONC 32.4 g/dl (32.0-36.5); PLATELET COUNT, AUTOMATED 472 10^3/uL (150-450); RED BLOOD COUNT 3.33 10^6/uL (4.30-6.10); WHITE BLOOD COUNT 8.3 10^3/uL (4.0-10.0)
== END ==
LOC: M LABDRAWC 08:55
PROVIDERS: ATTEND Family Medicine
DX: D50.0 Iron deficiency anemia secondary to blood loss (chronic) (principal)

== ENCOUNTER → 2019-12-02 | Outpatient (REF) | payer MEDICARE, BC ==
[2019-12-02 17:05] LABS: PERCENT SATURATION 33.4 % (19.7-50.0)
[2019-12-02 17:08] LABS: HEMOGLOBIN 11.6 g/dl (13.5-17.5); MEAN CORPUSCULAR HEMOGLOBIN 31.6 pg (27.0-33.0); MEAN CORPUSCULAR HGB CONC 31.4 g/dl (32.0-36.5); MEAN CORPUSCULAR VOLUME 100.8 fl (80.0-96.0); PLATELET COUNT, AUTOMATED 434 10^3/uL (150-450); RED BLOOD COUNT 3.67 10^6/uL (4.30-6.10); WHITE BLOOD COUNT 9.7 10^3/uL (4.0-10.0)
== END ==
LOC: M SFHCCLAY 15:56
PROVIDERS: ATTEND Family Medicine
DX: D64.9 Anemia, unspecified (principal)

== ENCOUNTER 2019-12-15 14:49 | Inpatient (IN) | payer MEDICARE, BC ==
[~2019-12-15] VITALS: Ht 172.7 cm; Wt 64.8 kg
[~2019-12-15 14:49] MED LIST changes: -ASPI-161 PO; -C 50TAB PO; -D31000TA2 PO; -FERR1TAB8 PO; -GLUCTAB6 PO; -KEYT1INJ IV; -MAGN64TASA PO; -PATIENT COMMENT; -POTA10TA14 PO; -PRED10TA2 PO; -QUES4POW PO; -REME30TA PO; -VITMTA PO; -[UNRECOGNIZED DRUG - CODE] SL
[2019-12-15] MEDS ORDERED: KEYT1INJ IV ×2 (15:06→22:13)
[2019-12-15 16:09] LABS: BASO # 0.1 10^3/uL (0.0-0.2); BASO % 0.7 % (0.0-1.0); EOS # 0.3 10^3/uL (0.0-0.5); EOS % 2.9 % (0.0-3.0); HEMOGLOBIN 9.9 g/dl (13.5-17.5); LYMPH # 1.1 10^3/uL (1.5-5.0); LYMPH % 12.7 % (24.0-44.0); MEAN CORPUSCULAR HEMOGLOBIN 31.7 pg (27.0-33.0); MEAN CORPUSCULAR HGB CONC 31.9 g/dl (32.0-36.5); MEAN CORPUSCULAR VOLUME 99.4 fl (80.0-96.0); MONO # 0.9 10^3/uL (0.0-0.8); MONO % 9.9 % (0.0-5.0); NEUTROPHILS # 6.5 10^3/uL (1.5-8.5); NEUTROPHILS % 73.6 % (36.0-66.0); PLATELET COUNT, AUTOMATED 410 10^3/uL (150-450); RED BLOOD COUNT 3.12 10^6/uL (4.30-6.10); WHITE BLOOD COUNT 8.9 10^3/uL (4.0-10.0)
[2019-12-15 16:33] LABS: ALBUMIN 3.4 GM/DL (3.2-5.2); ALT/SGPT 19 U/L (12-78); BILIRUBIN,DIRECT 0.1 MG/DL (0.0-0.2); BILIRUBIN,TOTAL 0.4 MG/DL (0.2-1.0); BLOOD UREA NITROGEN 13 MG/DL (7-18); CALCIUM LEVEL 8.9 MG/DL (8.8-10.2); CARBON DIOXIDE LEVEL 26 MEQ/L (21-32); CHLORIDE LEVEL 108 MEQ/L (98-107); CREATININE FOR GFR 1.11 MG/DL (0.70-1.30); GLOMERULAR FILTRATION RATE > 60.0 (>42); GLUCOSE, FASTING 88 MG/DL (70-100); LIPASE 46 U/L (73-393); MAGNESIUM LEVEL 2.4 MG/DL (1.8-2.4); POTASSIUM SERUM 4.3 MEQ/L (3.5-5.1); SODIUM LEVEL 138 MEQ/L (136-145); TOTAL PROTEIN 6.7 GM/DL (6.4-8.2)
[2019-12-15] MEDS: NS 1,000 ML IV SCH (17:06)
[2019-12-15] MEDS: GASTROGRAFIN SOLUTION 30ML PO SCH ×2 (17:28→17:49)
[2019-12-15] MEDS ORDERED: ISOVUE-370 76% 100ML VIAL As Ordered ONE (18:30)
--- NOTE | 2019-12-15 19:16 | REPVR ---
PROCEDURE INFORMATION: Exam: CT Abdomen And Pelvis With Contrast Exam date and time: 12/15/2019 6:36 PM Age: 74 years old Clinical indication: Other: Diarrhea; Abdominal pain; Localized; Right; Additional info: Right abdominal pain with diarrhea, colitis v diverticulitis TECHNIQUE: Imaging protocol: Computed tomography of the abdomen and pelvis with intravenous contrast. Radiation optimization: All CT scans at this facility use at least one of these dose optimization techniques: automated exposure control; mA and/or kV adjustment per patient size (includes targeted exams where dose is matched to clinical indication); or iterative reconstruction. Contrast material: ISOVUE 370; Contrast volume: 100 ml; Contrast route: INTRAVENOUS (IV); COMPARISON: CT ABD PELVIS W/O FOL BY WIT 05/29/2017 1:46 PM FINDINGS: Lungs: Branching opacities posterior and anterior left lower lobe likely represents inspissated secretions in dilated peripheral airways. Liver: Hepatic cysts measure up to 9 mm.There is a diffuse decrease in hepatic parenchymal density, consistent with steatosis. Gallbladder and bile ducts: Normal. No calcified stones. No ductal dilation. Pancreas: Normal. No ductal dilation. Spleen: The spleen demonstrates punctate calcifications, consistent with remote granulomatous organism exposure. Adrenals: Hyperplasia. No mass. Kidneys and ureters: Normal. No hydronephrosis. Stomach and bowel: Mildly increased fluid in the left colon consistent with reported history of diarrhea. Appendix: The appendix is within normal limits. There is no appendiceal enlargement, periappendiceal inflammatory changes or abscess. Intraperitoneal space: Unremarkable. No free air. No significant fluid collection. Vasculature: Status post placement of a bifurcating endograft in the abdominal aorta. Graft is patent with normal appearance of proximal and distal anastomoses. Lymph nodes: Unremarkable. No enlarged lymph nodes. Urinary bladder: Unremarkable as visualized. Reproductive: The prostate gland demonstrates mild hyperplasia. Bones/joints: Mild central spinal stenosis L2-L3, moderate central spinal stenosis L3-L4 and L4-L5. Soft tissues: Ovoid density in the right inguinal canal may represent a superior migrated testis or fluid within an inguinal hernia. Other findings: Osteoporosis. IMPRESSION: 1. Ovoid density in the right inguinal canal may represent a superior migrated testis or fluid within an inguinal hernia. 2. Hepatic cysts measure up to 9 mm.There is a diffuse decrease in hepatic parenchymal density, consistent with steatosis. 3. Status post placement of a bifurcating endograft in the abdominal aorta. Graft is patent with normal appearance of proximal and distal anastomoses. 4. The appendix is within normal limits. There is no appendiceal enlargement, periappendiceal inflammatory changes or abscess. 5. Mildly increased fluid in the left colon consistent with reported history of diarrhea. 6. Mild prostatic hyperplasia. Electronically signed by: Rio Fragoso On 12/15/2019 19:16:06 PM
[2019-12-15 19:49] LABS: CK-MB VALUE MASS 1.4 NG/ML (<3.6); CPK CREATINE PHOSPHOKINASE 54 U/L (39-308); MB/CK RELATIVE INDEX 2.59 (< OR =4); TROPONIN I < 0.02 NG/ML (< 0.10)
[2019-12-15 20:26] LABS: CK-MB VALUE MASS 1.3 NG/ML (<3.6); CPK CREATINE PHOSPHOKINASE 51 U/L (39-308); MB/CK RELATIVE INDEX 2.55 (< OR =4); TROPONIN I < 0.02 NG/ML (< 0.10)
--- NOTE | 2019-12-15 20:49 | ECGEPIP ---
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
--- NOTE | 2019-12-15 21:40 | REPVR ---
PROCEDURE INFORMATION: Exam: US Duplex Lower Extremity Veins, Bilateral Exam date and time: 12/15/2019 9:16 PM Age: 74 years old Clinical indication: Pain; Leg, lower; Bilateral; Additional info: Lower extrem leg pain TECHNIQUE: Imaging protocol: Real-time duplex ultrasound of the extremities with 2-D mata scale, color Doppler flow and spectral waveform analysis with image documentation. Complete exam focused on the bilateral lower extremity veins. COMPARISON: No relevant prior studies available. FINDINGS: Right deep veins: Common femoral, femoral, proximal profunda femoral and popliteal veins are patent without thrombus. Normal Doppler waveforms. Normal compressibility and/or augmentation response. Right superficial veins: Saphenofemoral junction is patent without thrombus. Left deep veins: Common femoral, femoral, proximal profunda femoral and popliteal veins are patent without thrombus. Normal Doppler waveforms. Normal compressibility and/or augmentation response. Left superficial veins: Saphenofemoral junction is patent without thrombus. Soft tissues: No abnormal focal fluid collection. IMPRESSION: No evidence of deep vein thrombosis. Electronically signed by: Heladio Richard On 12/15/2019 21:40:26 PM
--- NOTE | 2019-12-15 21:40 | REPVR ---
PROCEDURE INFORMATION: Exam: US Scrotum Exam date and time: 12/15/2019 9:16 PM Age: 74 years old Clinical indication: Abnormal findings; Abnormal imaging studies, genitourinary organs; Additional info: Abnormal CT questioning right testis TECHNIQUE: Imaging protocol: Real-time ultrasound of the scrotum and contents with color Doppler and image documentation. COMPARISON: No relevant prior studies available. FINDINGS: Right testicle measures 4.0 x 2.1 x 2.8 cm in size. Right testicle appears homogeneous with no focal mass. Normal Doppler flow is present within the right testicle. Left testicle measures 4.6 x 1.8 x 2.3 cm in size. Left testicle demonstrates a 15 mm cyst and smaller adjacent cysts. Normal Doppler flow is present within the left testicle. Right and left epididymis are symmetric and have normal Doppler flow. Right epididymal head cyst measuring 7 mm Physiologic fluid volume within the scrotal sac. No bowel-containing hernia sac within the scrotum. IMPRESSION: Cystic lesion involving the left testicle measuring 15 mm, with smaller adjacent simple appearing cysts. No evidence of testicular torsion. Incidental right epididymal head cyst Electronically signed by: Heladio Richard On 12/15/2019 21:39:33 PM
[2019-12-15] MEDS ORDERED: ACETAMINOPHEN TAB 650MG DOSE (2X325MG) PO PRN (21:45)
[2019-12-15] MEDS ORDERED: MAALOX 30 ML SUSP *UDC PO PRN (21:45)
[2019-12-15] MEDS ORDERED: MOM 30ML SUSPENSION UDC PO PRN (21:45)
--- NOTE | 2019-12-15 21:50 | REPVR ---
PROCEDURE INFORMATION: Exam: US Duplex Right Lower Extremity Arteries Or Arterial Bypass Grafts Exam date and time: 12/15/2019 9:16 PM Age: 74 years old Clinical indication: Screening exam; R/O pseudoaneurysm; Additional info: R/O pseudo aneursym TECHNIQUE: Imaging protocol: Right Real-time duplex scan of the arteries or arterial bypass grafts of the right lower extremity with 2-D mata scale, color Doppler flow and spectral waveform analysis. Images documented and saved. COMPARISON: No relevant prior studies available. FINDINGS: No evidence of soft tissue hematoma or arterial pseudoaneurysm. Normal triphasic waveforms in the imaged common femoral artery, superficial femoral artery and profundus femoral artery. IMPRESSION: No evidence of pseudoaneurysm or other arterial abnormality involving the proximal thigh as described above Electronically signed by: Heladio Richard On 12/15/2019 21:50:40 PM
--- NOTE | 2019-12-15 21:53 | HPEPDOC ---
[facility] Medical History & Physical Date of Admission Dec 15, 2019 Date of Service: Dec 15, 2019 Primary Care Physician: Darren Grimm MD Attending Physician: KIMBERLEE TAYLOR MD History and Physical TIME OF SERVICE: 11:40PM CHIEF COMPLAINT: diarrhea HISTORY OF PRESENT ILLNESS: This 74 yr old M initially presented w c/o of diarrhea for 7 days which begun shortly after he received the shingles vaccine. He denies eating outside food, denies having any sick contacts, and has had a poor appetite for the last week. Over the last 24 hours he has had more than 6 episodes of diarrhea that are associated with abdominal pain. The GI panel done in the ER was negative. While in the ER he also c/o abdominal pain therefore a CT of the abdomen was ordered which identified an ovid density in the right inguinal canal that may represent a superior migrated testis or fluid within an inguinal hernia. discussed these findings w who recommended additional imaging studies to r/o an aneurysm. Arterial studies, venous duplex US and scrotal US only identified a 15mm cystic lesion in the left testicle and an incidental right epididymal cyst head but no aneurysms. The patient has been having episodes of dizziness for about 1 year that are worse when he stands or exerts himself. He has fallen several times. In the ER he was also noted to have episodes of bradycardia w a HR as low as the 30s; EKG showed 1st degree AV block while the troponin and TSH were wnl. Dr.Gray pena iscussed this with who recommended discontinuing Plavix and Indapamide. 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 Another brother had a brain tumor ALLERGIES: Please see below. HOME MEDICATIONS: Please see below. PHYSICAL EXAMINATION: Vital Signs Date Time Temp Pulse Resp B/P (MAP) Pulse Ox O2 Delivery O2 Flow Rate FiO2 12/15/19 14:50 98.7 74 18 142/62 (88) 99 Room Air GEN: slim build / well developed/ NAD INTEGUMENT: not flushed/ not jaundice HEENT: NCAT / / sclera anicteric CVS: RRR/NMRG/ no lower extremity edema LUNGS: able to speak full sentences without stopping to take a breath / no coughing / lungs are clear to auscultation bilaterally on room air ABDOMEN: Contour (flat) / soft / has had 2 bowel movements w/in a 10 min period while I was in the ER MSK/EXTREMITIES: range of motion intact in all 4 extremities NEURO: CN 2-12 are grossly intact / speech is not dysarthric PSYCH: alert and oriented to person place and time/ able to understand and follow all commands LABORATORY DATA: 12/15/19 15:58 12/15/19 15:58: Immature Granulocyte % (Auto) 0.2, Neutrophils (%) (Auto) 73.6H, Lymphocytes (%) (Auto) 12.7L, Monocytes (%) (Auto) 9.9H, Eosinophils (%) (Auto) 2.9, Basophils (%) (Auto) 0.7, Neutrophils # (Auto) 6.5, Lymphocytes # (Auto) 1.1L, Monocytes # (Auto) 0.9H, Eosinophils # (Auto) 0.3, Basophils # (Auto) 0.1, Nucleated Red Blood Cells % (auto) 0.0, Anion Gap 4L, Glomerular Filtration Rate > 60.0, Calcium Level 8.9, Magnesium Level 2.4, Total Bilirubin 0.4, Direct Bilirubin 0.1, Aspartate Amino Transf (AST/SGOT) 13, Alanine Aminotransferase (ALT/SGPT) 19, Alkaline Phosphatase 180H, Total Creatine Kinase 54, Creatine Kinase MB 1.4, Creatine Kinase MB Relative Index 2.59, Troponin I < 0.02, Total Protein 6.7, Albumin 3.4, Albumin/Globulin Ratio 1.0, Lipase 46L 12/15/19 19:48: Total Creatine Kinase 51, Creatine Kinase MB 1.3, Creatine Kinase MB Relative Index 2.55, Troponin I < 0.02 IMAGING: CT abdomen/pelvis "IMPRESSION: 1. Ovoid density in the right inguinal canal may represent a superior migrated testis or fluid within an inguinal hernia. 2. Hepatic cysts measure up to 9 mm.There is a diffuse decrease in hepatic parenchymal density, consistent with steatosis. 3. Status post placement of a bifurcating endograft in the abdominal aorta. Graft is patent with normal appearance of proximal and distal anastomoses. 4. The appendix is within normal limits. There is no appendiceal enlargement, periappendiceal inflammatory changes or abscess. 5. Mildly increased fluid in the left colon consistent with reported history of diarrhea. 6. Mild prostatic hyperplasia." Vascular US "IMPRESSION: No evidence of deep vein thrombosis." Scrotal US "IMPRESSION: Cystic lesion involving the left testicle measuring 15 mm, with smaller adjacent simple appearing cysts. No evidence of testicular torsion. Incidental right epididymal head cyst." Arterial Duplex "IMPRESSION: No evidence of pseudoaneurysm or other arterial ab normality involving the proximal thigh as described above" MICROBIOLOGY: Please see below. ASSESSMENT: is a 74 yr old M w a hx of SCC & BCC of the skin, SCC of the lung, CAD, HTN, YONAS and multiple other medical problems who presented w the chief c/o diarrhea and was found to have bradycardia w a HR as low as 30; he will be admitted for evaluation of the later. PLAN: 1. Bradycardia Possibly symptomatic (he has been feeling dizzy for about 1 yr) Likely 2/2 clopidogrel and or indapamide. His K, Mag, Ca TSH and trops are wnl He has been c/o dizziness which may due to the bradycardia. EKG showed 1st degree AV blcok Reason for admission: telemetry & to r/o symptomatic bradycardia Plan: / telemetry / orthostats / f/u serial trops & EKG / atropine PRN for sustained HR <30 w symptoms / hold clopidogrel and indapamide, day time team can contact to confirm if he will see the patient this admission or an out patient basis 2. Dizziness Possibly 2/2 bradycardia vs orthostasis vs vertebrobasilar insufficiency Plan: telemetry / orthosts / hold indapamide / if dizziness doesn't improve after resolution of bradycardia the day time team may consider MRI of the brain to r/o vertebrobasilar insufficiency 3. Diarrhea/Possible Colitis The GI panel including C.diff is neg. He doesn't have SIRS criteria Suspect this could be an idiosyncratic reaction to pembrolizumab which is known to cause Colitis/diarrhea in about 16% of patients and poor appetite in about 15% of patients Plan: admit to med surg under observation / f/u w to see if he agrees with the diagnosis and if the patient needs s-scope prior to starting steroids / will avoid Loperamide because it can mask higher grade toxicity/ f/u Mag and Phosph 4. Macrocytic Anemia Hg below baseline of > 10 He has a hx of Iron deficiency anemia & GI bleed 2/2 gastric ulcers Plan: f/u Iron studies, stool occult, B12 and folate 5. Newly diagnosed Osteoporosis per CT abd Plan: f/u w PCP for DEXA,work out to r/o secondary causes of osteo and antiresorptive therapy 6. Newly diagnosed Hepatic steatosis He main risk factors is DM Plan: f/u w GI to confirm that he doesn't need a biopsy to confirm the diagnosis / c/w atorvastatin 7. Chronic CAD w CABG Plan: clopidogrel ASA and statin 8. Essential hypertension Plan:Telmisartan / hold Indapamide / day time team may consider different diuretic for his HTN if needed if agrees 9. IDDM Plan: f/u FSBS, A1C, SSI, hypoglycemia protocol / hold oral anti-glycemics 10. SCC of the lungs & SCC and BCC of the skin Plan: f/u w Onc as scheduled 11. KELY Plan: BIPAP 02/21 DVT PROPHYLAXIS: Lovenox DISPOSITION: likely home after more than 2 midnight's stay Laboratory Data CBC/BMP Laboratory Tests 12/15/19 15:58 Microbiology Microbiology 12/15/19 Gastrointestinal Tract Panel (PCR) - Final, Complete Home Medications Scheduled Ascorbic Acid (Vitamin C) 500 Mg Tablet, 500 MG PO DAILY Aspirin (Aspirin EC) 81 Mg Tablet., 81 MG PO DAILY Atorvastatin Calcium (Atorvastatin Calcium) 80 Mg Tab, 80 MG PO QHS Cholecalciferol (Vitamin D3) (Vitamin D3) 1,000 Unit Tablet, 1,000 UNITS PO DA JAYLEN Clopidogrel Bisulfate (Clopidogrel) 75 Mg Tab, 75 MG PO QHS Ferrous Sulfate (Ferrous Sulfate) 325 Mg Tablet, 325 MG PO DAILY Finasteride (Finasteride) 5 Mg Tablet, 5 MG PO DAILY Gluc Sams/Chondro Sams A/Vit C/Mn (Glucosamine Chondroitin Tab) 1 Each Tablet, 1 TAB PO BID Indapamide (Indapamide) 1.25 Mg Tab, 1.25 MG PO 3XW FRIDAY, FRIDAY AND FRIDAY Magnesium Chloride (Mag64) 64 Mg Tablet.dr, 128 MG PO BID Metformin HCl (Metformin HCl) 500 Mg Tab, 500 MG PO BID Mirtazapine (Remeron) 30 Mg Tablet, 30 MG PO QHS Multivitamins (Thera M Plus Tablet) 1 Each Tablet, 1 TAB PO DAILY Omeprazole (Omeprazole) 40 Mg Cap, 40 MG PO QHS Pembrolizumab (Keytruda) 100 Mg/4 Ml Vial, 100 MG IV ASDIRECTED EVERY 6 WEEKS Potassium Chloride (Potassium Chloride) 10 Meq Tablet.er, 10 MEQ PO DAILY Telmisartan (Telmisartan) 80 Mg Tab, 80 MG PO QHS Scheduled PRN Nitroglycerin (Nitromist) 4.1 Gm [place], 1 SPRAY SL NITRO PRN for CHEST PAIN Miscellaneous Medications [Patient Comment] PATIENT HAS NOT TAKEN ANY HOME MEDICATIONS TODAY (12/15/2019) Allergies Coded Allergies: promethazine (Verified Adverse Reaction, Intermediate, Anxiety, rage, 07/14/18) A-FIB/CHADSVASC A-FIB History Current/History of A-Fib/PAF?: No Current PO Anticoag Therapy: No KIMBERLEE TAYLOR MD Dec 15, 2019 21:53
[2019-12-15 22:05] LABS: FREE T4 0.96 NG/DL (0.76-1.46); THYROID STIMULATING HORMONE 0.595 uIU/ML (0.358-3.740)
[2019-12-15] MEDS ORDERED: D31000TA2 PO (22:13)
[2019-12-15] MEDS ORDERED: REME30TA PO (22:13)
[2019-12-15] MEDS ORDERED: POTA10TA14 PO (22:13)
[2019-12-15] MEDS ORDERED: FERR1TAB8 PO (22:13)
[2019-12-15] MEDS ORDERED: [UNRECOGNIZED DRUG - CODE] SL (22:13)
[2019-12-15] MEDS ORDERED: ASPI-161 PO (22:13)
[2019-12-15] MEDS ORDERED: C 50TAB PO (22:13)
[2019-12-15] MEDS ORDERED: GLUCTAB6 PO (22:13)
[2019-12-15] MEDS ORDERED: MAGN64TASA PO (22:13)
[2019-12-15] MEDS ORDERED: PATIENT COMMENT (22:13)
[2019-12-15] MEDS ORDERED: VITMTA PO (22:13)
[2019-12-15] MEDS ORDERED: ATROPINE SULF 1MG/10ML SYRINGE (J0461) IV PRN (23:00)
[2019-12-15] MEDS ORDERED: GLUCAGON INJ 1MG VIAL SC PRN (23:30)
[2019-12-15] MEDS ORDERED: GLUCOSE 4GM CHEW TABLET PO PRN (23:30)
[2019-12-15] MEDS ORDERED: DEXTROSE 50% 50 ML SYRINGE IV PRN (23:30)
[2019-12-16] MEDS ORDERED: [UNRECOGNIZED DRUG - REMARK] XX SCH (00:15)
[2019-12-16] MEDS: HumaLOG INSULIN (NovoLOG) PER UNIT SC SCH ×5 (00:30→21:00)
[2019-12-16] MEDS: ATORVASTATIN 20 MG TAB PO SCH (00:34)
[2019-12-16] MEDS: OMEPRAZOLE 20 MG CAP PO SCH (00:37)
[2019-12-16] MEDS: MIRTAZAPINE 15 MG TAB PO SCH (00:37)
[2019-12-16] MEDS: TELMISARTAN 20 MG TAB PO SCH (01:00)
[2019-12-16 01:37] LABS: HEMATOCRIT 29.3 % (42.0-52.0); HEMOGLOBIN 9.4 g/dl (13.5-17.5); MEAN CORPUSCULAR HGB CONC 32.1 g/dl (32.0-36.5); MEAN CORPUSCULAR VOLUME 99.7 fl (80.0-96.0); PLATELET COUNT, AUTOMATED 370 10^3/uL (150-450); RED BLOOD COUNT 2.94 10^6/uL (4.30-6.10); WHITE BLOOD COUNT 8.3 10^3/uL (4.0-10.0)
[2019-12-16 02:20] LABS: BLOOD UREA NITROGEN 13 MG/DL (7-18); CALCIUM LEVEL 8.6 MG/DL (8.8-10.2); CARBON DIOXIDE LEVEL 23 MEQ/L (21-32); CHLORIDE LEVEL 108 MEQ/L (98-107); CREATININE FOR GFR 0.97 MG/DL (0.70-1.30); FERRITIN 42 NG/ML (26-388); GLOMERULAR FILTRATION RATE > 60.0 (>42); GLUCOSE, FASTING 109 MG/DL (70-100); IRON (FE) 33 UG/DL (65-175); POTASSIUM SERUM 3.9 MEQ/L (3.5-5.1); SODIUM LEVEL 137 MEQ/L (136-145); TROPONIN I < 0.02 NG/ML (< 0.10)
[2019-12-16 04:24] LABS: HEMOGLOBIN A1c 5.8 %
[2019-12-16 04:52] LABS: PERCENT SATURATION 11.1 % (19.7-50.0); TOTAL IRON BINDING CAPACITY 296 UG/DL (250-450)
[2019-12-16] MEDS: NS 1,000 ML IV SCH (06:37)
[2019-12-16] MEDS ORDERED: ENOXAPARIN 40MG/0.4ML SYRINGE (J1650 PER 10MG) SC SCH (09:00)
[2019-12-16] MEDS: FERROUS SULFATE 325MG TAB PO SCH (09:07)
[2019-12-16] MEDS: POTASSIUM CHLORIDE 10 MEQ SR TABLET PO SCH (09:07)
[2019-12-16] MEDS: FINASTERIDE 5 MG TAB PO SCH (09:07)
[2019-12-16] MEDS: VITAMIN D 1,000 INTERNATIONAL UNITS TABLET PO SCH (09:07)
[2019-12-16 10:42] LABS: VITAMIN B12 LEVEL 754 PG/ML (247-911)
[2019-12-16 10:43] LABS: FOLATE > 24.0 NG/ML (>5.4)
--- NOTE | 2019-12-16 11:24 | IPNPDOC ---
Text Note Date of Service The patient was seen on 12/16/19. NOTE SUBJECTIVE: -Continues to have watery diarrhea, 5 episodes so far this morning but volume is much reduced per his report. No abdominal pain, no nausea or emesis, no chest pain -Continues to have episodes of dizziness and transiently feeling poorly OBJECTIVE: Vitals: bradycardia to 30-50s, otherwise normotensive, afebrile, breathing comfortably on room air GEN: NAD INTEGUMENT: not flushed,not jaundice HEENT: NCAT,sclera anicteric, dry MM CVS: Normal rhythm, bradycardic, NMRG, no lower extremity edema LUNGS: CTAB, no crackles, wheezing or rhonchi ABDOMEN: normoactive sounds, soft, NTND MSK/EXTREMITIES: range of motion intact in all 4 extremities NEURO: CN 2-12 are grossly intact, speech is not dysarthric, moving all extremities PSYCH: alert and oriented to person place and time. Understands and follows all commands LABORATORY DATA: WBC 8.3 hgb 9.4 platelets 142 na 137 K 3.9 Cr 0.97 IMAGING: CT abdomen/pelvis "IMPRESSION: 1. Ovoid density in the right inguinal canal may represent a superior migrated testis or fluid within an inguinal hernia. 2. Hepatic cysts measure up to 9 mm.There is a diffuse decrease in hepatic parenchymal density, consistent with steatosis. 3. Status post placement of a bifurcating endograft in the abdominal aorta. Graft is patent with normal appearance of proximal and distal anastomoses. 4. The appendix is within normal limits. There is no appendiceal enlargement, periappendiceal inflammatory changes or abscess. 5. Mildly increased fluid in the left colon consistent with reported history of diarrhea. 6. Mild prostatic hyperplasia." Vascular US "IMPRESSION: No evidence of deep vein thrombosis." Scrotal US "IMPRESSION: Cystic lesion involving the left testicle measuring 15 mm, with smaller adjacent simple appearing cysts. No evidence of testicular torsion. Incidental right epididymal head cyst." Arterial Duplex "IMPRESSION: No evidence of pseudoaneurysm or other arterial abnormality involving the proximal thigh as described above" MICROBIOLOGY: Please see below. ASSESSMENT: 74 yr old M w a hx of SCC & BCC of the skin, SCC of the lung, CAD, HTN, YONAS and multiple other medical problems who presented w the chief c/o diarrhea and was found to have bradycardia w a HR as low as 30 with persistent diarrhea. PLAN: 1. Symptomatic bradycardia w/ dizziness -Likely 2/2 clopidogrel and or indapamide. -K, Mag, Ca TSH and trops are wnl -EKG showed 1st degree AV blcok -telemetry -f/u orthostats -atropine PRN for sustained HR <30 w symptoms -continue to hold clopidogrel and indapamide -NPO pre-evaluation by , in case he has to place a PPM today 2. Dizziness Possibly 2/2 bradycardia vs orthostasis vs vertebrobasilar insufficiency -telemetry -orthosts -continue holding indapamide and plavix -If it persists after bradycardia will consider MRI of the brain to r/o vertebrobasilar insufficiency 3. Diarrhea/Possible Colitis on pembrolizumab for the last 2y and onset was on the day he had a zoster vaccine -GI panel including C.diff is neg. 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 Also not sure if related to zostervax which was on the day of onset. Consutled Dr. Schwab 4. Macrocytic Anemia Hg below baseline of > 10 He has a hx of Iron deficiency anemia & GI bleed 2/2 gastric ulcers Plan: f/u Iron studies, stool occult, B12 and folate --> he is iron deficient. Will start him on iron sulfate. 5. Newly diagnosed Osteoporosis per CT abd -f/u w PCP for DEXA,work out to r/o secondary causes of osteo and antiresorptive therapy 6. Newly diagnosed Hepatic steatosis -his main risk factors is DM -f/u w GI to confirm that he doesn't need a biopsy to confirm the diagnosis 7. Chronic CAD w CABG -c/w clopidogrel ASA and statin 8. Essential hypertension -c/w Telmisartan -hold Indapamide 9. IDDM -f/u FSBS, A1C, SSI, hypoglycemia protocol -hold oral anti-glycemics 10. SCC of the lungs & SCC and BCC of the skin -f/u w Onc as scheduled -contiune holding pembrolizumab for now until GI evaluation 11. KELY -BIPAP 02/21 DVT PROPHYLAXIS: Lovenox DISPOSITION: likely home after more than 2 midnight's stay VS,Fishbone, I+O VS, Fishbone, I+O Laboratory Tests 9/30/20 15:58 12/16/19 01:23 Vital Signs Date Time Temp Pulse Resp B/P (MAP) Pulse Ox O2 Delivery O2 Flow Rate FiO2 12/16/19 06:00 52 18 125/59 (81) 98 Room Air 12/15/19 18:16 96.9 WILTON FLORES MD Dec 16, 2019 11:24
[2019-12-16] MEDS ORDERED: LR 1,000 ML IV SCH (15:00)
[2019-12-16 16:25] VITALS: BP 162/64
[2019-12-16] MEDS ORDERED: ceFAZolin SOD 1 GM in D5W MINI-BAG PLUS 50 ML IV ONE (17:00)
[2019-12-16 17:44] VITALS: BP 150/68
[2019-12-16 20:00] VITALS: BP 151/68
[2019-12-16] MEDS: CHOLESTYRAMINE 4 GM PWD PKT PO SCH (20:00)
[2019-12-16] MEDS ORDERED: fentaNYL 100 MCG/2 ML INJECTION (J3010) As Ordered ONE (20:21)
[2019-12-16] MEDS ORDERED: propofoL 200 MG/20 ML VIAL As Ordered ONE ×2 (20:21→21:50)
[2019-12-16] MEDS ORDERED: LIDOCAINE 2% 100MG/5ML SDV (FOR ANES.) As Ordered ONE (20:21)
[2019-12-16] MEDS ORDERED: MIDAZOLAM INJ 2MG/2ML VIAL (J2250 PER 1MG) As Ordered ONE (20:21)
[2019-12-16] MEDS ORDERED: LIDOCAINE 1% SDV 30ML VIAL As Ordered ONE (21:46)
[2019-12-16] MEDS ORDERED: MUPIROCIN 2% OINT 22 GM TUBE As Ordered ONE (21:46)
[2019-12-16] MEDS ORDERED: ISOVUE-300 61% 50ML VIAL As Ordered ONE (21:48)
[2019-12-16] MEDS ORDERED: ceFAZolin 1GM VIAL (J0690 PER 500MG) As Ordered ONE (21:58)
[2019-12-16] MEDS ORDERED: fentaNYL 100 MCG/2 ML INJECTION (J3010) IV PRN (23:15)
[2019-12-16] MEDS ORDERED: ONDANSETRON 4MG/2ML VIAL IV PRN (23:15)
[2019-12-17] VITALS (11 sets, daily range): BP systolic 119–174; BP diastolic 59–84
--- NOTE | 2019-12-17 01:08 | REPVR ---
PROCEDURE INFORMATION: Exam: XR Chest, 1 View Exam date and time: 12/16/2019 11:26 PM Age: 74 years old Clinical indication: Other: S/P dual pacemaker insertion TECHNIQUE: Imaging protocol: XR of the chest Views: 1 view. COMPARISON: CT ANGIO CHEST 06/29/2019 11:14 AM FINDINGS: Tubes, catheters and devices: There is a pacemaker in position from the left with overlying skin rosa maria suggesting recent placement and is new since 06/29/2019. Electrodes are noted in the region of the right atrium and right ventricular tip. Lungs: Mild pulmonary hyperinflation. No focal infiltrates. Pleural space: No pneumothorax. Heart/Mediastinum: Borderline cardiomegaly. Bones/joints: Status post sternotomy. IMPRESSION: 1. Status post recent placement of bipolar pacemaker in satisfactory position. No pneumothorax. 2. Otherwise stable chest since 06/29/2019. Electronically signed by: Dae Sandoval On 12/17/2019 01:08:17 AM
[2019-12-17] MEDS: ATORVASTATIN 20 MG TAB PO SCH ×2 (01:22→20:45)
[2019-12-17] MEDS: MIRTAZAPINE 15 MG TAB PO SCH ×2 (01:22→20:46)
[2019-12-17] MEDS: OMEPRAZOLE 20 MG CAP PO SCH ×2 (01:23→20:46)
[2019-12-17] MEDS: TELMISARTAN 20 MG TAB PO SCH ×2 (01:23→20:46)
[2019-12-17] MEDS: CHOLESTYRAMINE 4 GM PWD PKT PO SCH ×3 (06:23→20:46)
[2019-12-17] MEDS: HumaLOG INSULIN (NovoLOG) PER UNIT SC SCH ×4 (07:30→21:00)
[2019-12-17 08:28] LABS: HEMATOCRIT 31.4 % (42.0-52.0); HEMOGLOBIN 10.2 g/dl (13.5-17.5); MEAN CORPUSCULAR HEMOGLOBIN 32.3 pg (27.0-33.0); MEAN CORPUSCULAR HGB CONC 32.5 g/dl (32.0-36.5); MEAN CORPUSCULAR VOLUME 99.4 fl (80.0-96.0); PLATELET COUNT, AUTOMATED 412 10^3/uL (150-450); RED BLOOD COUNT 3.16 10^6/uL (4.30-6.10)
[2019-12-17] MEDS: FERROUS SULFATE 325MG TAB PO SCH (08:30)
[2019-12-17] MEDS: POTASSIUM CHLORIDE 10 MEQ SR TABLET PO SCH (08:30)
[2019-12-17] MEDS: VITAMIN D 1,000 INTERNATIONAL UNITS TABLET PO SCH (08:30)
[2019-12-17] MEDS: FINASTERIDE 5 MG TAB PO SCH (08:30)
[2019-12-17] MEDS: ASCORBIC ACID 250 MG TAB PO SCH ×2 (08:30→20:45)
[2019-12-17] MEDS: INDAPAMIDE 1.25MG TABLET PO SCH (08:30)
[2019-12-17 08:48] LABS: BLOOD UREA NITROGEN 8 MG/DL (7-18); CALCIUM LEVEL 8.7 MG/DL (8.8-10.2); CARBON DIOXIDE LEVEL 25 MEQ/L (21-32); CHLORIDE LEVEL 110 MEQ/L (98-107); CREATININE FOR GFR 0.97 MG/DL (0.70-1.30); GLOMERULAR FILTRATION RATE > 60.0 (>42); GLUCOSE, FASTING 96 MG/DL (70-100); POTASSIUM SERUM 4.1 MEQ/L (3.5-5.1); SODIUM LEVEL 141 MEQ/L (136-145)
[2019-12-17] MEDS ORDERED: PREVNAR 13 VACCINE SYRINGE IM ONE (09:00)
--- NOTE | 2019-12-17 12:03 | IPNPDOC ---
Text Note Date of Service The patient was seen on 12/17/19. NOTE SUBJECTIVE: -No abdominal pain, no nausea or emesis, no chest pain -Diarrhea persists this morning. Otherwise without pain. Interim events: -Had PPM placed by Dr. Mendez -Was seen by GI and expressed reluctance to have another scope, for now to monitor OBJECTIVE: Vitals: V-paced with a rate of 65, otherwise normotensive, afebrile GEN: NAD INTEGUMENT: not flushed,not jaundice HEENT: NCAT,sclera anicteric, dry MM CVS: Normal rhythm, bradycardic, NMRG, no lower extremity edema LUNGS: CTAB, no crackles, wheezing or rhonchi ABDOMEN: Normoactive sounds, soft, NTND MSK/EXTREMITIES: range of motion intact in all 4 extremities NEURO: CN 2-12 are grossly intact, speech is not dysarthric, moving all extremities PSYCH: alert and oriented to person place and time. Understands and follows all commands LABORATORY DATA: reviewed. WBC 10 Hgb 10.2 platelets 412 na 141 K 4.1 Cr 0.97 IMAGING: CT abdomen/pelvis "IMPRESSION: 1. Ovoid density in the right inguinal canal may represent a superior migrated testis or fluid within an inguinal hernia. 2. Hepatic cysts measure up to 9 mm.There is a diffuse decrease in hepatic parenchymal density, consistent with steatosis. 3. Status post placement of a bifurcating endograft in the abdominal aorta. Graft is patent with normal appearance of proximal and distal anastomoses. 4. The appendix is within normal limits. There is no appendiceal enlargement, periappendiceal inflammatory changes or abscess. 5. Mildly increased fluid in the left colon consistent with reported history of diarrhea. 6. Mild prostatic hyperplasia." Vascular US "IMPRESSION: No evidence of deep vein thrombosis." Scrotal US "IMPRESSION: Cystic lesion involving the left testicle measuring 15 mm, with smaller adjacent simple appearing cysts. No evidence of testicular torsion. Incidental right epididymal head cyst." Arterial Duplex "IMPRESSION: No evidence of pseudoaneurysm or other arterial abnormality involving the proximal thigh as described above" MICROBIOLOGY: Please see below. ASSESSMENT: 74 yr old M w a hx of SCC & BCC of the skin, SCC of the lung, CAD, HTN, YONAS and multiple other medical problems who presented w the chief c/o diarrhea and was found to have bradycardia w a HR as low as 30 with persistent diarrhea, now s/p PPM and V-paced but diarrhea persists. PLAN: 1. Symptomatic bradycardia w/ dizziness -Likely 2/2 clopidogrel and or indapamide, both have been discontinued -K, Mag, Ca TSH and trops are wnl -EKG showed 1st degree AV blcok -telemetry -f/u orthostats -atropine PRN for sustained HR <30 w symptoms -continue to hold clopidogrel for now in anticipation of scoping on 12/19 (Friday) -indapamide was restarted by Dr. Mendez -s/p PPM by Dr. Mendez on 12/15 2. Dizziness Possibly 2/2 bradycardia vs orthostasis vs vertebrobasilar insufficiency -telemetry -continue holding plavix -PT cleared him for home discharge today 3. Diarrhea/Possible Colitis on pembrolizumab for the last 2y and onset was on the day he had a zoster vaccine -GI panel including C.diff is neg. 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 Also not sure if related to zostervax which was on the day of onset. Consulted Dr. Schwab who recommended holding plavix for 5 days and will plan colonoscopy on 12/19. -To have clear diet on 12/18 and go-lytely prep in preparation for 12/19 colonoscopy 4. Macrocytic Anemia Hg below baseline of > 10 He has a hx of Iron deficiency anemia & GI bleed 2/2 gastric ulcers -continue daily iron sulfate. 5. Newly diagnosed Osteoporosis per CT abd -f/u w PCP for DEXA,work out to r/o secondary causes of osteo and antiresorptive therapy 6. Newly diagnosed Hepatic steatosis -his main risk factors is DM -LFTs wnl 7. Chronic CAD w CABG -discontinued clopidogrel, continue ASA and statin 8. Essential hypertension -c/w Telmisartan -continue Indapamide 9. IDDM -f/u FSBS, A1C, SSI, hypoglycemia protocol -hold oral anti-glycemics 10. 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 KELY -BIPAP 02/21 DVT PROPHYLAXIS: Lovenox DISPOSITION: downgrade to med/surg VS,Fishbone, I+O VS, Fishbone, I+O Vital Signs Date Time Temp Pulse Resp B/P (MAP) Pulse Ox O2 Delivery O2 Flow Rate FiO2 12/17/19 05:20 98.1 65 20 166/82 (110) 100 Nasal Cannula 2.0 I&O- Last 24 Hours up to 6 AM 12/17/19 06:00 Intake Total 2635 ml Output Total 50 ml Balance 2585 ml WILTNO FLORES MD Dec 17, 2019 08:02
[2019-12-17] MEDS ORDERED: SLF 3 ML SYR IV PRN (12:30)
[2019-12-17] MEDS: SLF 3 ML SYR IV SCH ×2 (13:13→21:33)
[2019-12-17] MEDS ORDERED: ASCORBIC ACID 250 MG TAB PO SCH (21:00)
[2019-12-18] VITALS: BP 128/78
[2019-12-18 04:00] VITALS: BP 138/72
[2019-12-18] MEDS: CHOLESTYRAMINE 4 GM PWD PKT PO SCH ×3 (05:16→20:15)
[2019-12-18] MEDS: SLF 3 ML SYR IV SCH ×3 (05:16→20:15)
[2019-12-18 05:55] LABS: HEMATOCRIT 35.1 % (42.0-52.0); HEMOGLOBIN 11.3 g/dl (13.5-17.5); MEAN CORPUSCULAR HGB CONC 32.2 g/dl (32.0-36.5); MEAN CORPUSCULAR VOLUME 99.4 fl (80.0-96.0); PLATELET COUNT, AUTOMATED 427 10^3/uL (150-450); RED BLOOD COUNT 3.53 10^6/uL (4.30-6.10); WHITE BLOOD COUNT 11.2 10^3/uL (4.0-10.0)
[2019-12-18] MEDS: HumaLOG INSULIN (NovoLOG) PER UNIT SC SCH ×4 (07:28→21:00)
[2019-12-18 08:00] VITALS: BP 123/59
[2019-12-18] MEDS: FINASTERIDE 5 MG TAB PO SCH (08:54)
[2019-12-18] MEDS: FERROUS SULFATE 325MG TAB PO SCH (08:55)
[2019-12-18] MEDS: ASCORBIC ACID 250 MG TAB PO SCH ×2 (08:55→20:14)
[2019-12-18] MEDS: VITAMIN D 1,000 INTERNATIONAL UNITS TABLET PO SCH (08:55)
[2019-12-18] MEDS: POTASSIUM CHLORIDE 10 MEQ SR TABLET PO SCH (08:55)
[2019-12-18] MEDS ORDERED: CLOPIDOGREL 75 MG TAB PO SCH (09:00)
--- NOTE | 2019-12-18 11:41 | IPNPDOC ---
Text Note Date of Service The patient was seen on 12/18/19. NOTE SUBJECTIVE: -No abdominal pain, no nausea or emesis, no chest pain -Diarrhea has slowed in frequency but still present. Otherwise without pain. OBJECTIVE: Vitals: V-paced with a rate of 65, otherwise normotensive, afebrile GEN: NAD INTEGUMENT: not flushed,not jaundice HEENT: NCAT,sclera anicteric, dry MM CVS: Normal rhythm, bradycardic, NMRG, no lower extremity edema LUNGS: CTAB, no crackles, wheezing or rhonchi ABDOMEN: Normoactive sounds, soft, NTND MSK/EXTREMITIES: range of motion intact in all 4 extremities NEURO: CN 2-12 are grossly intact, speech is not dysarthric, moving all extremities PSYCH: alert and oriented to person place and time. Understands and follows all commands LABORATORY DATA: reviewed. WBC 11.2 Hgb 11.3 platelets 427 na 141 K 4.1 Cr 0.97 IMAGING: CT abdomen/pelvis "IMPRESSION: 1. Ovoid density in the right inguinal canal may represent a superior migrated testis or fluid within an inguinal hernia. 2. Hepatic cysts measure up to 9 mm.There is a diffuse decrease in hepatic parenchymal density, consistent with steatosis. 3. Status post placement of a bifurcating endograft in the abdominal aorta. Graft is patent with normal appearance of proximal and distal anastomoses. 4. The appendix is within normal limits. There is no appendiceal enlargement, periappendiceal inflammatory changes or abscess. 5. Mildly increased fluid in the left colon consistent with reported history of diarrhea. 6. Mild prostatic hyperplasia." Vascular US "IMPRESSION: No evidence of deep vein thrombosis." Scrotal US "IMPRESSION: Cystic lesion involving the left testicle measuring 15 mm, with smaller adjacent simple appearing cysts. No evidence of testicular torsion. Incidental right epididymal head cyst." Arterial Duplex "IMPRESSION: No evidence of pseudoaneurysm or other arterial abnormality involving the proximal thigh as described above" MICROBIOLOGY: Please see below. ASSESSMENT: 74 yr old M w a hx of SCC & BCC of the skin, SCC of the lung, CAD, HTN, YONAS and multiple other medical problems who presented w the chief c/o diarrhea and was found to have bradycardia w a HR as low as 30 with persistent diarrhea, now s/p PPM and V-paced but diarrhea persists. PLAN: 1. Symptomatic bradycardia w/ dizziness -Initially thought to have been 2/2 clopidogrel and or indapamide, now s/p PPM and indapamide was restarted -K, Mag, Ca TSH and trops are wnl -EKG showed 1st degree AV block--> now s/p PPM -s/p PPM by Dr. Mendez on 12/15 -continue to hold clopidogrel for now in anticipation of scoping on 12/19 (Friday) 2. Dizziness Possibly 2/2 bradycardia vs orthostasis vs vertebrobasilar insufficiency -telemetry -continue holding plavix -PT cleared him for home 3. Diarrhea/Possible Colitis on pembrolizumab for the last 2y and onset was on the day he had a zoster vaccine -GI panel including C.diff is neg. 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 Also not sure if related to zostervax which was on the day of onset. Consulted Dr. Schwab who recommended holding plavix for 5 days and will plan on colonoscopy on 12/19. -To have clear diet on 12/18 and go-lytely prep in preparation for 12/19 colonoscopy 4. Macrocytic Anemia Hg below baseline of > 10 He has a hx of Iron deficiency anemia & GI bleed 2/2 gastric ulcers -continue daily iron sulfate. 5. Newly diagnosed Osteoporosis per CT abd -f/u w PCP for DEXA,work out to r/o secondary causes of osteo and antiresorptive therapy 6. Newly diagnosed Hepatic steatosis -his main risk factors is DM -LFTs wnl 7. Chronic CAD w CABG -discontinued clopidogrel, continue ASA and statin 8. Essential hypertension -c/w Telmisartan -continue Indapamide 9. IDDM -f/u FSBS, A1C, SSI, hypoglycemia protocol -hold oral anti-glycemics 10. 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 KELY -BIPAP 02/21 DVT PROPHYLAXIS: Lovenox DISPOSITION: med/surg VS,Fishbone, I+O VS, Fishbone, I+O Laboratory Tests 12/18/19 05:28 Vital Signs Date Time Temp Pulse Resp B/P (MAP) Pulse Ox O2 Delivery O2 Flow Rate FiO2 12/18/19 08:00 97.3 71 18 123/59 (80) 97 Room Air 12/17/19 08:00 2.0 I&O- Last 24 Hours up to 6 AM 12/18/19 06:00 Intake Total 640 ml Output Total 530 ml Balance 110 ml WILTON FLORES MD Dec 18, 2019 09:50
[2019-12-18 16:00] VITALS: BP 110/51
[2019-12-18] MEDS: HYDROCORTISONE 1% CREAM 30 GM TOP SCH ×2 (17:06→20:14)
[2019-12-18 20:00] VITALS: BP 116/65
[2019-12-18] MEDS: ATORVASTATIN 20 MG TAB PO SCH (20:14)
[2019-12-18] MEDS: TELMISARTAN 20 MG TAB PO SCH (20:14)
[2019-12-18] MEDS: MIRTAZAPINE 15 MG TAB PO SCH (20:14)
[2019-12-18] MEDS: OMEPRAZOLE 20 MG CAP PO SCH (20:14)
[2019-12-18 21:50] VITALS: BP 131/71
[2019-12-19 02:00] VITALS: BP 124/73
[2019-12-19] MEDS: CHOLESTYRAMINE 4 GM PWD PKT PO SCH ×3 (05:18→11:00)
[2019-12-19] MEDS: SLF 3 ML SYR IV SCH ×3 (05:19→21:22)
[2019-12-19 06:00] VITALS: BP 140/72
[2019-12-19] MEDS: HumaLOG INSULIN (NovoLOG) PER UNIT SC SCH ×5 (07:30→20:20)
[2019-12-19] MEDS: ASCORBIC ACID 250 MG TAB PO SCH ×2 (08:16→20:47)
[2019-12-19] MEDS: FINASTERIDE 5 MG TAB PO SCH (08:16)
[2019-12-19] MEDS: POTASSIUM CHLORIDE 10 MEQ SR TABLET PO SCH (08:16)
[2019-12-19] MEDS: VITAMIN D 1,000 INTERNATIONAL UNITS TABLET PO SCH (08:16)
[2019-12-19] MEDS: FERROUS SULFATE 325MG TAB PO SCH (08:16)
[2019-12-19] MEDS: HYDROCORTISONE 1% CREAM 30 GM TOP SCH ×2 (08:17→20:47)
[2019-12-19 10:00] VITALS: BP 144/72
--- NOTE | 2019-12-19 11:49 | ECGEPIP ---
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
--- NOTE | 2019-12-19 12:29 | IPNPDOC ---
Text Note Date of Service The patient was seen on 12/19/19. NOTE SUBJECTIVE: -No abdominal pain, no nausea or emesis, no chest pain -Improvement in diarrhea, none charted yesterday though he notes that he has had some OBJECTIVE: Vitals: see below GEN: NAD INTEGUMENT: not flushed,not jaundice HEENT: NCAT,sclera anicteric, MMM CVS: Normal rhythm, bradycardic, NMRG, no lower extremity edema LUNGS: CTAB, no crackles, wheezing or rhonchi ABDOMEN: Normoactive sounds, soft, NTND MSK/EXTREMITIES: range of motion intact in all 4 extremities NEURO: CN 2-12 are grossly intact, speech is not dysarthric, moving all extremities PSYCH: alert and oriented to person place and time. Understands and follows all commands LABORATORY DATA: reviewed. pending AM labs IMAGING: CT abdomen/pelvis "IMPRESSION: 1. Ovoid density in the right inguinal canal may represent a superior migrated testis or fluid within an inguinal hernia. 2. Hepatic cysts measure up to 9 mm.There is a diffuse decrease in hepatic parenchymal density, consistent with steatosis. 3. Status post placement of a bifurcating endograft in the abdominal aorta. Graft is patent with normal appearance of proximal and distal anastomoses. 4. The appendix is within normal limits. There is no appendiceal enlargement, periappendiceal inflammatory changes or abscess. 5. Mildly increased fluid in the left colon consistent with reported history of diarrhea. 6. Mild prostatic hyperplasia." Vascular US "IMPRESSION: No evidence of deep vein thrombosis." Scrotal US "IMPRESSION: Cystic lesion involving the left testicle measuring 15 mm, with smaller adjacent simple appearing cysts. No evidence of testicular torsion. Incidental right epididymal head cyst." Arterial Duplex "IMPRESSION: No evidence of pseudoaneurysm or other arterial abnormality involving the proximal thigh as described above" MICROBIOLOGY: Please see below. ASSESSMENT: 74 yr old M w a hx of SCC & BCC of the skin, SCC of the lung, CAD, HTN, YONAS and multiple other medical problems who presented w the chief c/o diarrhea and was found to have bradycardia w a HR as low as 30 with persistent diarrhea, now s/p PPM and V-paced but diarrhea persists pending colonoscopy tomorrow, 12/19. PLAN: 1. Symptomatic bradycardia w/ dizziness -Initially thought to have been 2/2 clopidogrel and or indapamide, now s/p PPM and indapamide was restarted -K, Mag, Ca TSH and trops are wnl -EKG showed 1st degree AV block--> now s/p PPM -s/p PPM by Dr. Mendez on 12/15 -continue to hold clopidogrel w/plan for scoping on 12/19 2. Dizziness Possibly 2/2 bradycardia vs orthostasis vs vertebrobasilar insufficiency -telemetry -continue holding plavix -PT cleared him for home 3. Diarrhea/Possible Colitis on pembrolizumab for the last 2y and onset was on the day he had a zoster vaccine -GI panel including C.diff is neg. 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 Also not sure if related to zostervax which was on the day of onset. Consulted Dr. Schwab who recommended holding plavix for 5 days and will plan on colonoscopy on 12/19. -clear diet and will get go-lytely prep today per GI in preparation for 12/19 colonoscopy -f/u fecal calprotectin and lactoferrin 4. Macrocytic Anemia Hg below baseline of > 10 He has a hx of Iron deficiency anemia & GI bleed 2/2 gastric ulcers -continue daily iron sulfate. 5. Newly diagnosed Osteoporosis per CT abd -f/u w PCP for DEXA,work out to r/o secondary causes of osteo and antiresorptive therapy 6. Newly diagnosed Hepatic steatosis -his main risk factors is DM -LFTs wnl 7. Chronic CAD w CABG -discontinued clopidogrel, continue ASA and statin 8. Essential hypertension -c/w Telmisartan -continue Indapamide 9. IDDM -f/u FSBS, A1C, SSI, hypoglycemia protocol -hold oral anti-glycemics 10. 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 KELY -BIPAP 02/21 DVT PROPHYLAXIS: Lovenox DISPOSITION: med/surg VS,Fishbone, I+O VS, Fishbone, I+O Vital Signs Date Time Temp Pulse Resp B/P (MAP) Pulse Ox O2 Delivery O2 Flow Rate FiO2 12/19/19 06:00 98.3 69 16 140/72 (94) 96 Room Air 12/17/19 08:00 2.0 I&O- Last 24 Hours up to 6 AM 12/19/19 06:00 Intake Total 706 ml Output Total 400 ml Balance 306 ml WILTON FLORES MD Dec 19, 2019 08:37
[2019-12-19 14:00] VITALS: BP 112/62
[2019-12-19] MEDS ORDERED: POLYETHYLENE GLYCOL (MIRALAX) 238GM BOTTLE PO ONE (17:00)
[2019-12-19 18:00] VITALS: BP 112/64
[2019-12-19] MEDS: TELMISARTAN 20 MG TAB PO SCH ×2 (20:46→21:00)
[2019-12-19] MEDS: OMEPRAZOLE 20 MG CAP PO SCH (20:46)
[2019-12-19] MEDS: MIRTAZAPINE 15 MG TAB PO SCH (20:47)
[2019-12-19] MEDS: ATORVASTATIN 20 MG TAB PO SCH (20:47)
[2019-12-19 22:00] VITALS: BP 124/65
[2019-12-20 02:00] VITALS: BP 134/70
[2019-12-20] MEDS: SLF 3 ML SYR IV SCH ×2 (05:03→14:18)
[2019-12-20 06:00] VITALS: BP 127/64
[2019-12-20 06:09] LABS: HEMATOCRIT 33.9 % (42.0-52.0); MEAN CORPUSCULAR HGB CONC 32.4 g/dl (32.0-36.5); MEAN CORPUSCULAR VOLUME 98.5 fl (80.0-96.0); PLATELET COUNT, AUTOMATED 383 10^3/uL (150-450); RED BLOOD COUNT 3.44 10^6/uL (4.30-6.10); WHITE BLOOD COUNT 8.5 10^3/uL (4.0-10.0)
[2019-12-20 06:31] LABS: BLOOD UREA NITROGEN 7 MG/DL (7-18); CALCIUM LEVEL 8.5 MG/DL (8.8-10.2); CARBON DIOXIDE LEVEL 28 MEQ/L (21-32); CHLORIDE LEVEL 109 MEQ/L (98-107); CREATININE FOR GFR 0.99 MG/DL (0.70-1.30); GLOMERULAR FILTRATION RATE > 60.0 (>42); GLUCOSE, FASTING 84 MG/DL (70-100); POTASSIUM SERUM 4.1 MEQ/L (3.5-5.1); SODIUM LEVEL 141 MEQ/L (136-145)
[2019-12-20] MEDS: HumaLOG INSULIN (NovoLOG) PER UNIT SC SCH ×3 (07:28→17:30)
[2019-12-20] MEDS: ASCORBIC ACID 250 MG TAB PO SCH (08:44)
[2019-12-20] MEDS: INDAPAMIDE 1.25MG TABLET PO SCH (08:45)
[2019-12-20] MEDS: FINASTERIDE 5 MG TAB PO SCH (08:46)
[2019-12-20] MEDS: POTASSIUM CHLORIDE 10 MEQ SR TABLET PO SCH (08:46)
[2019-12-20] MEDS: VITAMIN D 1,000 INTERNATIONAL UNITS TABLET PO SCH (08:46)
[2019-12-20 08:51] VITALS: BP 132/66
--- NOTE | 2019-12-20 10:24 | IPNPDOC ---
Text Note Date of Service The patient was seen on 12/20/19. NOTE SUBJECTIVE: -No abdominal pain, no nausea or emesis, no chest pain -Had bowel prep overnight without complications, with good response OBJECTIVE: Vitals: see below GEN: NAD INTEGUMENT: not flushed,not jaundice HEENT: NCAT,sclera anicteric, MMM CVS: Normal rhythm, bradycardic, NMRG, no lower extremity edema LUNGS: CTAB, no crackles, wheezing or rhonchi ABDOMEN: Normoactive sounds, soft, NTND MSK/EXTREMITIES: range of motion intact in all 4 extremities NEURO: CN 2-12 are grossly intact, speech is not dysarthric, moving all extremities PSYCH: alert and oriented to person place and time. Understands and follows all commands LABORATORY DATA: reviewed. WBC 8.5 Hgb 11 platelets 383 na 141 K 4.1 Cr 0.99 IMAGING: CT abdomen/pelvis "IMPRESSION: 1. Ovoid density in the right inguinal canal may represent a superior migrated testis or fluid within an inguinal hernia. 2. Hepatic cysts measure up to 9 mm.There is a diffuse decrease in hepatic parenchymal density, consistent with steatosis. 3. Status post placement of a bifurcating endograft in the abdominal aorta. Graft is patent with normal appearance of proximal and distal anastomoses. 4. The appendix is within normal limits. There is no appendiceal enlargement, periappendiceal inflammatory changes or abscess. 5. Mildly increased fluid in the left colon consistent with reported history of diarrhea. 6. Mild prostatic hyperplasia." Vascular US "IMPRESSION: No evidence of deep vein thrombosis." Scrotal US "IMPRESSION: Cystic lesion involving the left testicle measuring 15 mm, with smaller adjacent simple appearing cysts. No evidence of testicular torsion. Incidental right epididymal head cyst." Arterial Duplex "IMPRESSION: No evidence of pseudoaneurysm or other arterial abnormality involving the proximal thigh as described above" MICROBIOLOGY: Please see below. ASSESSMENT: 74 yr old M w a hx of SCC & BCC of the skin, SCC of the lung, CAD, HTN, YONAS and multiple other medical problems who presented w the chief c/o diarrhea and was found to have bradycardia w a HR as low as 30 with persistent diarrhea, now s/p PPM and V-paced but diarrhea persists pending colonoscopy this morning with Dr. Schwab. PLAN: 1. Symptomatic bradycardia w/ dizziness -Initially thought to have been 2/2 clopidogrel and or indapamide, now s/p PPM and indapamide was restarted -K, Mag, Ca TSH and trops are wnl -EKG showed 1st degree AV block--> now s/p PPM -s/p PPM by Dr. Mendez on 12/15 -continue to hold clopidogrel, having a colonoscopy this AM, will resume after. 2. Dizziness Possibly 2/2 bradycardia vs orthostasis vs vertebrobasilar insufficiency -telemetry -continue holding plavix -PT cleared him for home 3. Diarrhea/Possible Colitis on pembrolizumab for the last 2y and onset was on the day he had a zoster vaccine -GI panel including C.diff is neg. 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 Schwab who recommended holding plavix for 5 days and will have colonoscopy today. -NPO, due for colonoscopy -f/u fecal calprotectin and lactoferrin -holding pembro 4. Macrocytic Anemia Hg below baseline of > 10 He has a hx of Iron deficiency anemia & GI bleed 2/2 gastric ulcers -continue daily iron sulfate. 5. Newly diagnosed Osteoporosis per CT abd -f/u w PCP for DEXA,work out to r/o secondary causes of osteo and antiresorptive therapy 6. Newly diagnosed Hepatic steatosis -his main risk factors is DM -LFTs wnl 7. Chronic CAD w CABG -discontinued clopidogrel, continue ASA and statin 8. Essential hypertension -c/w Telmisartan -continue Indapamide 9. IDDM -f/u FSBS, A1C, SSI, hypoglycemia protocol -hold oral anti-glycemics 10. 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 KELY -BIPAP 02/21 DVT PROPHYLAXIS: Lovenox DISPOSITION: med/surg for colonoscopy this afternoon, with tentative plan to be discharged home after the colonoscopy if without complications. VS,Fishbone, I+O VS, Fishbone, I+O Laboratory Tests 12/20/19 05:36 Vital Signs Date Time Temp Pulse Resp B/P (MAP) Pulse Ox O2 Delivery O2 Flow Rate FiO2 12/20/19 06:00 97.6 79 16 127/64 (85) 97 Room Air 12/17/19 08:00 2.0 I&O- Last 24 Hours up to 6 AM 12/20/19 06:00 Intake Total 4120 ml Output Total 2050 ml Balance 2070 ml WILTON FLORES MD Dec 20, 2019 07:23
[2019-12-20 11:29] VITALS: BP 127/60
[2019-12-20] MEDS: HYDROCORTISONE 1% CREAM 30 GM TOP SCH (12:09)
--- NOTE | 2019-12-20 12:23 | CR ---
DATE OF CONSULTATION: 12/16/2019 REFERRING PHYSICIAN: Sujata Mendez MD REASON FOR CONSULTATION: Symptomatic bradycardia. HISTORY OF PRESENT ILLNESS: Mr. Jet Graham is a pleasant, 74-year-old man with coronary heart disease. With regard to coronary heart disease, he had percutaneous transluminal coronary angioplasty (PTCA) in 1985. He had a myocardial infarct 03/09/1993 with subsequent coronary artery bypass graft surgery (CABG) in 1992. He has systemic hypertension, premature atrial contractions (PACs), multifocal atrial tachycardia, hypercholesterolemia, type 2 diabetes, history of lung cancer, history of bladder cancer, and status post endovascular abdominal aortic aneurysm repair. He presented to the emergency room yesterday with complaints of diarrhea and he was noted to have symptomatic bradycardia. He was not on any drugs to account for slowing of atrioventricular (AV) conduction. On telemetry, he has been observed to have intermittent dropping of his heart rate into the 30s, during which time he is having 2:1 second-degree AV block. Patient reports a one year history of intermittent sporadic transient lightheadedness that can occur in any position with episodes of near syncope. No syncope. He reports exertional dyspnea intermittently with ordinary activities of daily living. He has been receiving iron transfusions and is followed by hematology/oncology at [facility]. When he is doing well from the standpoint of his anemia, he can walk up to two miles a day. No anginal symptoms or chest pain or chest discomfort with or without activity. No palpitations. No recent embolic events. No intermittent claudication. No leg or ankle swelling. Holter monitor 11/10/2015 showed multifocal atrial rhythm and multifocal atrial tachycardia which were of brief duration. A first-degree AV block was noted and Mobitz type 1 second-degree AV block was noted and very brief higher grade AV block with longest asystolic pause of 2.9 seconds. No high-grade AV block at that time. Regadenoson stress SPECT myocardial perfusion imaging study 09/16/2018 showed left ventricular ejection fraction (LVEF) 75%. Normal left ventricular (LV) wall motion. Normal stress SPECT myocardial perfusion. Echocardiogram Doppler 03/19/2019 showed LVEF 70%. Moderate degenerative calcific aortic valve disease with mild reduction in aortic cusp mobility. Mild increase in transvalvular aortic velocity without aortic stenosis or regurgitation. Normal LV systolic function. Normal LV diastolic function for age. Mild left atrial dilatation by left atrial volume index. Mild mitral annular calcification. No mitral regurgitation. Suggestive of mild elevation of pulmonary artery systolic pressure and normal estimated right ventricular (RV) systolic pressure. PAST MEDICAL AND SURGICAL HISTORY: Abdominal aortic aneurysm repair with an endograft 04/[address] Mathis. Prior cyst removal. Upper lobectomy for removal of lung cancer. 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 Status post transurethral resection of the prostate (TURP). Benign prostatic hypertrophy. Left eye surgery 01/2016. Lip surgery 01/2016. Skin excision of several basal cell carcinomas from the head 02/2019. Femoral artery stenting times two to the right leg 02/23/2019. Coronary artery disease. PTCA 1985. Myocardial infarct 02/1993. CABG 02/1993. Abnormal ECG. Multifocal atrial tachycardia. Hypercholesterolemia. Obstructive sleep apnea. Iron deficiency anemia. Receives periodic iron infusions. ALLERGIES: PHENERGAN. MEDICATIONS: Prior to admission: - vitamin C 500 mg daily - aspirin 81 mg daily - atorvastatin 80 mg nightly - vitamin D 1000 units daily - clopidogrel 75 mg daily - ferrous sulfate 325 mg daily - finasteride 5 mg daily - glucosamine chondroitin one twice a day - indapamide 1.25 mg three times per week (Friday, Friday, Friday) - magnesium chloride 128 mg twice a day - metformin 500 mg twice a day - Remeron 30 mg nightly - multivitamin one daily - nitroglycerin 0.4 mg sublingual as needed - omeprazole 40 mg nightly - Keytruda 100 mg IV every six weeks - potassium chloride 10 mEq daily - telmisartan 80 mg nightly FAMILY HISTORY: Mother had a heart murmur. SOCIAL HISTORY: . 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 Independent with all activities of daily living. Prior smoker for which he quit in 2011. Previously had smoked one pack per day times 50 years. No alcohol. Limited by shortness of breath on exertion. REVIEW OF SYSTEMS: Reports hearing loss. Abdominal pain and gastroesophageal reflux disease (GERD). Diarrhea. History of basal cell carcinoma, melanoma, and squamous cell carcinoma of the skin. Reports imbalance. Reports decreased memory. Numbness and tingling in his hands and feet. Anxiety and depression. No panic attacks. Cold intolerance. Anemia. Shortness of breath on exertion. Other items as per history of present illness (HPI) above. All other ten-point review of systems negative. PHYSICAL EXAMINATION: Pleasant, normal body weight appearing, man who is not in any respiratory or psychologic distress. Height 68 inches, weight 68.1 kg, body mass index (BMI) 22.8. Temperature 97.7. Pulse 50 (regular), respiratory rate 17, blood pressure 151/64. Oxygen saturation 99% on room air. Ear, nose, and throat (ENT) not examined because patient was wearing a mask (COVID-19 protection). Trachea midline. No palpable thyroid. Jugular venous pulsations were at 3 cm. Respiratory expansion and effort was normal. No crackles or wheezes appreciated. No parasternal lifts, heaves, thrills, or palpable heart sounds. Well-healed midline sternal scar present. Decreased S1. Normal S2. No S3 or S4. No murmurs appreciated. Carotids were normal in volume and contour and without bruits. No palpable abdominal aorta. Femoral pulses normal. Pedal pulses normal. No peripheral edema in the extremities. No varicose veins. No clubbing of the nail beds, cyanosis, or splinter hemorrhages. Abdomen with bowel sounds positive. Abdomen was soft, nontender, with normal bowel sounds. No hepatosplenomegaly or other organomegaly. Liver span 10 cm in the right midclavicular line. Stool for occult blood not presently indicated. Gait not tested as patient is presently on bed rest. No kyphosis or scoliosis. Gross motor strength and tone normal. No abnormal muscle atrophy, fasciculations, or tremors. No skin lesions, skin pallor, or skin icterus. Oriented to person, place, and time. Mood and affect normal. Electrocardiogram acquired 12/15/2019 at 1930 hours shows: Sinus bradycardia, 58 beats per minute, first-degree AV block with [place] interval of 296 ms, otherwise normal ECG. Laboratory work 12/16/2019 was reviewed: WBC 8.3, hemoglobin 9.4, hematocrit 29.3, platelets 370, sodium 137, potassium 3.9, chloride 108, CO2 23, BUN 13, creatinine 0.97, estimated GFR greater than 60, glucose 109, calcium 8.6, iron low at 33, troponin I less than 0.02. Laboratory work 12/15/2019 showed: TSH 0.595 and free T4 0.96. ASSESSMENT AND RECOMMENDATIONS: 1. This patient has intermittent 2:1 second-agree atrioventricular (AV) block (second-degree AV block other) with resultant symptomatic bradycardia with heart rates in the 30s associated with lightheadedness and presyncope. He meets criteria for implantation of a permanent dual-chamber pacemaker. Dual-chamber pacemaker implantation was explained to the patient and he was agreeable. Risks of pacemaker implantation explained to the patient included but not inclusive: Infection (1%), pneumothorax (1%), bleeding, adverse drug reaction, prolonged healing, cardiac dysrhythmias, lead dislodgement, and cardiac perforation with cardiac tamponade (05/999). Patient is agreeable and signed the consent form. The plan is to proceed with implantation of a permanent dual-chamber pacemaker later today. 2. Symptomatic bradycardia. As per problem #1. 3. Coronary artery disease (CAD) ([place]) status post percutaneous coronary intervention with percutaneous transluminal coronary angioplasty (PTCA) 1985. History of old myocardial infarction (AK) 1992 with subsequent coronary artery bypass graft surgery (CABG) 1992. Continue current medical therapy other than holding clopidogrel temporarily prior to proceeding with pacemaker implantation. Continue atorvastatin, telmisartan, and aspirin. 4. Status post percutaneous transluminal coronary angioplasty (PTCA). As per coronary artery disease (CAD) category above. 5. Status post coronary artery bypass surgery (CABG). As per coronary artery disease (CAD) category above. 6. Systemic hypertension. Blood pressures reasonably well controlled in hospital so far. Continue telmisartan. Indapamide is temporarily on hold because of diarrhea. Once his diarrhea settles down it can be restarted. Thank you for asking me to participate in the cardiac care of Mr. Jet Graham. [facility]ITAL[facility]
--- NOTE | 2019-12-20 12:26 | RO ---
DATE OF OPERATION: 12/16/2019 PREOPERATIVE DIAGNOSIS: Second-degree atrioventricular (AV) block (2:1 second- degree AV block) associated with symptomatic bradycardia (presyncope). POSTOPERATIVE DIAGNOSIS: Second-degree atrioventricular (AV) block (2:1 second- degree AV block) associated with symptomatic bradycardia (presyncope). PROCEDURE: Implantation of a permanent dual-chamber pacemaker system ([employer]). PROCEDURE PERFORMED BY: Shay Mendez MD REAR ADMIRAL: None. FINDINGS: Second-degree atrioventricular (AV) block (2:1 second-degree AV block) associated with symptomatic bradycardia (presyncope). ANESTHESIA: Lidocaine 1% local/monitored anesthetic care. Specimens: None. Estimated blood loss: 50 mL. No blood products were placed. Drains: None. Complications: None. Procedure Description: The patient was prepped and draped over the left pectoral region. 3M Ioban film was applied. Lidocaine 1% was used for local anesthetic. A left subclavian vein venogram was performed in real time with 20 mL of a mixture consisting of five parts contrast, one part normal saline which was injected via a peripheral vein in the left upper extremity. This was used to obtain the venogram in real time which was used to guide under fluoroscopy micropuncture needle percutaneous access into the extra thoracic portion of the left subclavian vein. This was then guidewire exchanged for a guidewire that came with one of the 7-Omani sheaths. Next, An incision approximately 2.5-3 inches in length was made one centimeter below the skin entry site of the guidewire and approximately parallel to the left clavicle using a Peak PlasmaBlade. The Peak PlasmaBlade was then used to get through the fatty layer and the fibrous Kim's fascia. I then performed the pacemaker pocket in a caudal direction using blunt dissection using two fingers to separate the prepectoral fascia from the Scarpas fascia. The guidewire was then pulled through the incision site. Next, using fluoroscopy and using the first guidewire as a marker, several attempts were made to get into the left subclavian vein at the level of the pectoral muscle using another micropuncture needle to get separate venous access but this was unsuccessful even with an additional venogram. I then decided to use a shear guidewire technique. I placed the 7-Omani introducer over the first guidewire and advanced into the left subclavian vein. Next, the introducer was removed leaving the sheath in place and the guidewire in place, and a second guidewire was placed along side the first. Next, the sheath was removed leaving the two guidewires in the vein. I then placed the introducer back into the sheath and placed it over one of the guidewires and advanced it into the vein. This was used for vein access for the ventricular lead. The ventricular lead was placed under fluoroscopic guidance into the right ventricular apex position where it was secured with a total of 10 turns. This position was found to be electrically and anatomically satisfactory and no diaphragmatic stimulation could be palpated on either side at 10 volts high-output pacing. Next, I placed another 7-Omani sheath introducer over the other guidewire and this was used for vein access for the right atrial lead. The right atrial lead was placed under fluoroscopic guidance into the right atrial appendage remnant position using the help of a preformed J-stylet. It was secured with a total of 10 turns. This position was found to be electrically and anatomically satisfactory. The 7- [place]i sheath was broken apart and removed. Next, the atrial and ventricular leads were secured to the pectoral muscle using 0 Ethibond suture material. A single suture was used to secure the atrial lead to the pectoral muscle and two sutures were used to secure the ventricular lead to the pectoral muscle using the supplied tie-down sleeve. I then placed an additional 0 Ethibond suture to the pectoral muscle to serve as a tie-down for the pacemaker pulse generator. I then took a BixX antimicrobial envelope (reference number [id number] with lot number [id number]). It was cut into four pieces which were placed into the floor of the pacemaker pocket. Next, the pacemaker pulse generator was plugged into the internal pins of the ventricular and atrial leads and eachone was secured by tightening the set screws with the hex screwdriver. The excess lead material was then coiled underneath the pacemaker pulse generator and placed along with the pacemaker pulse generator into the pocket with the excess lead material below and pacemaker pulse generator on top. It was then secured to the pectoral muscle with the previously placed 0 Ethibond suture. The deep layer was then closed using individual sutures consisting of 2-0 Vicryl and a few additional 3-0 Vicryl sutures were used to help approximate the more superficial layer. [place] were then used to close the incision line. Prior to placing the pacemaker pulse generator into the pocket and after the atrial and ventricular leads were secured, I stopped back bleeding around the entry site into the pectoral muscle of the two pacemaker leads by tying a Aleman suture using 0 Ethibond suture material which was successful at stopping the bleeding. The pacemaker pulse generator implanted was a [employer] MRI with model [id number] with serial #[id number]. The right ventricular lead implanted was a [employer] Tendril MRI model [id number], 59 cm in length with serial #[id number]. Testing of the right ventricular lead in the operating room with the PSA analyzer showed capture threshold of 0.6 volts at 0.4 milliseconds with R-wave amplitude of 14.6 millivolts and lead impedance of 530 ohms. The right atrial lead implanted was a [employer] Tendril MRI model number [id number], 52 cm in length with serial #[id number]. Testing in the operating room for the atrial lead and bipolar configuration with the PSA analyzer showed a capture threshold of 0.6 volts at 0.4 milliseconds with P-wave amplitude of 3.1 millivolts and lead impedance of 425 ohms. [facility]
[2019-12-20 14:35] VITALS: BP 124/63
[2019-12-20] MEDS ORDERED: propofoL 200 MG/20 ML VIAL As Ordered ONE (15:58)
[2019-12-20] MEDS ORDERED: PHENYLephrine HCL 500 MCG/5 ML (100MCG/ML) SYRINGE (J2370) As Ordered ONE (16:28)
--- NOTE | 2019-12-20 16:53 | ROOR ---
Patient Name: Jet Graham Procedure Date: 12/20/2019 2:11 PM Date of : 1945 Age: 74 Gender: Male Note Status: Finalized Procedure: Colonoscopy Indications: Clinically significant diarrhea of unexplained origin Providers: Shay SCHWAB MD Referring MD: 2. Inpatient 2. Inpatient, Darci Church MD Requesting Provider: Medicines: Monitored Anesthesia Care Complications: No immediate complications. Procedure: Pre-Anesthesia Assessment: - The heart rate, respiratory rate, oxygen saturations, blood pressure, adequacy of pulmonary ventilation, and response to care were monitored throughout the procedure. The Colonoscope was introduced through the anus and advanced to 10 cm into the ileum. The colonoscopy was performed without difficulty. The patient tolerated the procedure well. The quality of the bowel preparation was fair. Findings: The perianal and digital rectal examinations were normal. Two sessile polyps were found in the proximal transverse colon and hepatic flexure. The polyps were 4 to 5 mm in size. These polyps were removed with a cold snare. Resection and retrieval were complete. Mild sigmoid diverticulosis. The mucosa vascular pattern in the sigmoid colon was decreased. This was biopsied with a cold forceps for evaluation of microscopic colitis. The exam was otherwise normal throughout the examined colon. The terminal ileum appeared normal. Impression: - Preparation of the colon was fair. - Two 4 to 5 mm polyps in the proximal transverse colon and at the hepatic flexure, removed with a cold snare. Resected and retrieved. Mild sigmoid diverticulosis. - Mildly decreased mucosa vascular pattern in the sigmoid colon. (Question significance). Biopsied. - The colon is otherwise normal. - The examined portion of the ileum was normal. (- Colitis was not seen, await pathology for assessment for microscopic colitis). Recommendation: - Telephone endoscopist for pathology results in 2 weeks. - Return to primary care physician as previously scheduled. - Use Questran at 1 packet (4 grams) PO BID. - Resume Plavix (clopidogrel) at prior dose in 2 days. Refer to referring physician for further adjustment of therapy. Shay Schwab MD Shay SCHWAB MD 12/20/2019 4:52:59 PM Electronically signed by Shay SCHWAB MD Number of Addenda: 0 Note Initiated On: 12/20/2019 2:11 PM Estimated Blood Loss: Estimated blood loss: none.
[2019-12-20] MEDS ORDERED: LR 1,000 ML IV SCH (17:00)
[2019-12-20] MEDS ORDERED: ONDANSETRON 4MG/2ML VIAL IV PRN (17:00)
[2019-12-20 18:00] VITALS: BP 140/56
[2019-12-20] MEDS ORDERED: QUES4POW PO (18:09)
--- NOTE | 2019-12-20 18:13 | DS.PDOC ---
Discharge Summary General Date of Admission Dec 15, 2019 at 14:50 Date of Discharge 12/20/2019 Attending Physician: WILTON FLORES MD Specialist/Consultants Involve: Shay Mendez Specialist/Consultants Involve KEVIN Discharge Summary PROCEDURES PERFORMED DURING STAY: PPM placement on 12/16/2019. Colonscopy on 12/20/2019 ADMITTING DIAGNOSES: 1. Symptomatic bradycardia 2. 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 HISTORY OF PRESENT ILLNESS: 74 yr old M who presented to the ED c/o of diarrhea for 7 days which begun shortly after he received the shingles vaccine. He denied eating outside food, having any sick contacts, and had a poor appetite for a week. Over the last 24 hours before presentation he has had more than 6 episodes of non bloody diarrhea that were associated with abdominal pain. He also complained of dizziness that is episodic. HOSPITAL COURSE: The GI panel done in the ER was negative. While in the ER he also c/o abdominal pain therefore a CT of the abdomen was ordered which identified an ovid density in the right inguinal canal that may represent a superior migrated testis or fluid within an inguinal hernia. discussed these findings w who recommended additional imaging studies to r/o an aneurysm. Arterial studies, venous duplex US and scrotal US only identified a 15mm cystic lesion in the left testicle and an incidental right epididymal cyst head but no aneurysms. While in the ED, he was also noted to have episodes of bradycardia w a HR as low as the 30s and EKG showed 1st degree AV block while the troponin and TSH were wnl. discussed this with who recommended discontinuing Plavix and Indapamide. He was admitted to medicine for symptomatic bradycardia and acute diarrheal illness for which there was concern for acute gastroenteritis vs. pembrolizumab induced colitis. His symptomatic bradycardia persisted and Dr. Darwin wick was officially consulted and placed a dual PPM on 12/16/2019 without complications. GI was consulted for the diarrhea and he was seen by Dr. Schwab who recommended colonoscopy that was performed on 12/20/2019 with the results below. His diarrhea did improve over the time of his hospital stay. He was evaluated by PT and cleared for safe discharge home and will follow up with card iology, GI, oncology and his PCP. DISCHARGE MEDICATIONS: Please see below. ALLERGIES: Please see below. PHYSICAL EXAMINATION ON DISCHARGE: VITAL SIGNS: Please see below. Vitals: V-paced with a rate of 65, otherwise normotensive, afebrile GEN: NAD INTEGUMENT: not flushed,not jaundice HEENT: NCAT,sclera anicteric, dry MM CVS: Normal rhythm, bradycardic, NMRG, no lower extremity edema LUNGS: CTAB, no crackles, wheezing or rhonchi ABDOMEN: normoactive sounds, soft, NTND MSK/EXTREMITIES: range of motion intact in all 4 extremities NEURO: CN 2-12 are grossly intact, speech is not dysarthric, moving all extremities PSYCH: alert and oriented to person place and time. Understands and follows all commands LABORATORY DATA: Please see below. IMAGING: CT abdomen/pelvis "IMPRESSION: 1. Ovoid density in the right inguinal canal may represent a superior migrated testis or fluid within an inguinal hernia. 2. Hepatic cysts measure up to 9 mm.There is a diffuse decrease in hepatic parenchymal density, consistent with steatosis. 3. Status post placement of a bifurcating endograft in the abdominal aorta. Graft is patent with normal appearance of proximal and distal anastomoses. 4. The appendix is within normal limits. There is no appendiceal enlargement, periappendiceal inflammatory changes or abscess. 5. Mildly increased fluid in the left colon consistent with reported history of diarrhea. 6. Mild prostatic hyperplasia." Vascular US "IMPRESSION: No evidence of deep vein thrombosis." Scrotal US "IMPRESSION: Cystic lesion involving the left testicle measuring 15 mm, with smaller adjacent simple appearing cysts. No evidence of testicular torsion. Incidental right epididymal head cyst." Arterial Duplex "IMPRESSION: No evidence of pseudoaneurysm or other arterial abnormality involving the proximal thigh as described above" PROCEDURE: COLONOSCOPY Findings: The perianal and digital rectal examinations were normal. Two sessile polyps were found in the proximal transverse colon and hepatic flexure. The polyps were 4 to 5 mm in size. These polyps were removed with a cold snare. Resection and retrieval were complete. Mild sigmoid diverticulosis. The mucosa vascular pattern in the sigmoid colon was decreased. This was biopsied with a cold forceps for evaluation of microscopic colitis. The exam was otherwise normal throughout the examined colon. The terminal ileum appeared normal. Impression: - Preparation of the colon was fair. - Two 4 to 5 mm polyps in the proximal transverse colon and at the hepatic flexure, removed with a cold snare. Resected and retrieved. Mild sigmoid diverticulosis. - Mildly decreased mucosa vascular pattern in the sigmoid colon. (Question significance). Biopsied. - The colon is otherwise normal. - The examined portion of the ileum was normal. (- Colitis was not seen, await pathology for assessment for microscopic colitis). Recommendation: - Telephone endoscopist for pathology results in 2 weeks. - Return to primary care physician as previously scheduled. - Use Questran at 1 packet (4 grams) PO BID. - Resume Plavix (clopidogrel) at prior dose in 2 days. Refer to referring physician for further adjustment of therapy. PROGNOSIS: Good ACTIVITY: As tolerated DIET: Regular DISCHARGE PLAN: Home with close cardiology, PCP follow up and routine GI and oncology follow up. DISPOSITION: Home DISCHARGE INSTRUCTIONS: 1. Home with close cardiology, PCP follow up and routine GI and oncology follow up. ITEMS TO FOLLOWUP ON ON OUTPATIENT: 1. Resolution of diarrhea 2. Bradycardia s/p PPM 3. Oncology follow up 4. GI follow up colonoscopy results DISCHARGE CONDITION: Stable TIME SPENT ON DISCHARGE: 45 minutes. Vital Signs/I&Os Vital Signs Date Time Temp Pulse Resp B/P (MAP) Pulse Ox O2 Delivery O2 Flow Rate FiO2 12/17/19 05:20 98.1 65 20 166/82 (110) 100 Nasal Cannula 2.0 I&O- Last 24 Hours up to 6 AM 12/17/19 06:00 Intake Total 2635 ml Output Total 50 ml Balance 2585 ml Laboratory Data Labs 24H Laboratory Tests 2 12/16/19 17:19: Bedside Glucose (Misc Panel) 78L 12/17/19 00:51: Bedside Glucose (Misc Panel) 56L 12/17/19 01:17: Bedside Glucose (Misc Panel) 78L 12/17/19 06:23: Bedside Glucose (Misc Panel) 66L FSBS Laboratory Tests Test 12/16/19 17:19 12/17/19 00:51 12/17/19 01:17 10/2/20 06:23 Range/Units Bedside Glucose (Misc Panel) 78 56 78 66 83-110 MG/DL Microbiology Microbiology 12/16/19 Respiratory Virus Panel (PCR) (ROSINA) - Final, Complete 12/15/19 Gastrointestinal Tract Panel (PCR) - Final, Complete Discharge Medications Scheduled Ascorbic Acid (Vitamin C) 500 Mg Tablet, 500 MG PO DAILY, (Reported) Aspirin (Aspirin EC) 81 Mg Tablet.dr, 81 MG PO DAILY, (Reported) Atorvastatin Calcium (Atorvastatin Calcium) 80 Mg Tab, 80 MG PO QHS, (Reported) Cholecalciferol (Vitamin D3) (Vitamin D3) 1,000 Unit Tablet, 1,000 UNITS PO DAILY, (Reported) Cholestyramine (with Sugar) (Questran Packet) 4 Gm Powd.pack, 1 PKT PO BID Clopidogrel Bisulfate (Clopidogrel) 75 Mg Tab, 75 MG PO QHS, (Reported) Ferrous Sulfate (Ferrous Sulfate) 325 Mg Tablet, 325 MG PO DAILY, (Reported) Finasteride (Finasteride) 5 Mg Tablet, 5 MG PO DAILY, (Reported) Gluc Sams/Chondro Sams A/Vit C/Mn (Glucosamine Chondroitin Tab) 1 Each Tablet, 1 TAB PO BID, (Reported) Indapamide (Indapamide) 1.25 Mg Tab, 1.25 MG PO 3XW, (Reported) FRIDAY, FRIDAY AND FRIDAY Magnesium Chloride (Mag64) 64 Mg Tablet.dr, 128 MG PO BID, (Reported) Metformin HCl (Metformin HCl) 500 Mg Tab, 500 MG PO BID, (Reported) Mirtazapine (Remeron) 30 Mg Tablet, 30 MG PO QHS, (Reported) Multivitamins (Thera M Plus Tablet) 1 Each Tablet, 1 TAB PO DAILY, (Reported) Omeprazole (Omeprazole) 40 Mg Cap, 40 MG PO QHS, (Reported) Pembrolizumab (Keytruda) 100 Mg/4 Ml Vial, 100 MG IV ASDIRECTED, (Reported) EVERY 6 WEEKS Potassium Chloride (Potassium Chloride) 10 Meq Tablet.er, 10 MEQ PO DAILY, (Reported) Telmisartan (Telmisartan) 80 Mg Tab, 80 MG PO QHS, (Reported) Scheduled PRN Nitroglycerin (Nitromist) 4.1 Gm Tappen, 1 SPRAY SL NITRO PRN for CHEST PAIN, (Reported) Miscellaneous Medications [Patient Comment] , (Reported) PATIENT HAS NOT TAKEN ANY HOME MEDICATIONS TODAY (12/15/2019) Allergies Coded Allergies: promethazine (Verified Adverse Reaction, Intermediate, Anxiety, rage, 07/14/18) WILTON FLORES MD Dec 17, 2019 08:27
--- NOTE | 2019-12-20 20:50 | ECGEPIP ---
[facility] Test Date: 2019-12-17 Pat Name: GUILLE PENNY Department: Room: [place] [address] Gender: Male [employer]ove [employer] Worker: WILMA : 1945 Requested By: WILTON Buchanan Order Number: [id number] Reading MD: Parul Bai Measurements Intervals [place] Rate: 66 P: 91 KS: 310 QRS: 31 QRSD: 92 T: 67 QT: 425 QTc: 447 Interpretive Statements SINUS RHYTHM WITH FIRST DEGREE AV BLOCK COMPARED TO 12/16/2019 LEAD SWITCH IS NO LONGER PRESENT Electronically Signed on 12-20-2019 20:49:52 EDT by Parul Bai
--- NOTE | 2019-12-22 11:56 | REP ---
CHEST X-RAY: LIMITED STUDY 2-VIEWS HISTORY: Pacemaker insertion. FINDINGS: A sequence of two [id number] fluoroscopically obtained spot radiographs of the chest document pacemaker lead placement. FLUROSCOPY TIME: 5 minutes 3 seconds reported. MTDD
--- NOTE | 2019-12-22 11:57 | REP ---
CHEST X-RAY: 2-VIEWS HISTORY: Pacemaker placement. COMPARISON: 12/16/2019 1139 pm and preprocedure x-ray 10/15/2017. FINDINGS: The patient is status post prior median sternotomy. Heart is not enlarged. Pleural angles are sharp. Pulmonary vasculature is not increased. A bipolar pacemaker is seen in the right heart via the left side. There is no evidence of pneumothorax or hydrothorax. Oxygen delivery tubing is noted. IMPRESSION: Status post pacemaker insertion. No complication identified. MTDD
[2020-01-01 00:07] LABS: CALPROTECTIN STOOL 712 ug/g (0-120); PANCREATIC ELASTASE STOOL 204 (>200)
[2020-01-25] MEDS ORDERED: PEMBROLIZUMAB 100MG/4ML VIAL (KEYTRUDA) (J9271 PER 1MG) (FOR ONCOLOGY) IV SCH (09:00)
[2020-01-25] MEDS ORDERED: PRED10TA2 PO (13:30)
== END 2019-12-20 18:37 | disposition home or self-care (01) | DRG 244 ==
LOC: M ED 14:49 → M ED INP 14:50 → ENRESERV 12-16 14:40 → M PCU 12-16 16:25 → OBSVTOIN 12-17 11:50 → M MSPAV 12-18 21:38
PROVIDERS: ADMIT Internal Medicine; ATTEND Internal Medicine
PROC: 02HK3JZ Insertion of Pacemaker Lead into Right Ventricle, Percutaneous Approach (ICD-10-PCS; 2019-12-16)
PROC: 02H63JZ Insertion of Pacemaker Lead into Right Atrium, Percutaneous Approach (ICD-10-PCS; 2019-12-16)
PROC: 0JH606Z Insertion of Pacemaker, Dual Chamber into Chest Subcutaneous Tissue and Fascia, Open Approach (ICD-10-PCS; principal; 2019-12-16 17:00)
PROC: 0DBL8ZX Excision of Transverse Colon, Via Natural or Artificial Opening Endoscopic, Diagnostic (ICD-10-PCS; 2019-12-20)
PROC: 0DBN8ZX Excision of Sigmoid Colon, Via Natural or Artificial Opening Endoscopic, Diagnostic (ICD-10-PCS; 2019-12-20)
DX: I44.1 Atrioventricular block, second degree (principal); R00.1 Bradycardia, unspecified; K52.9 Noninfective gastroenteritis and colitis, unspecified; N50.3 Cyst of epididymis; N44.2 Benign cyst of testis; R42 Dizziness and giddiness; M81.0 Age-related osteoporosis without current pathological fracture; K76.0 Fatty (change of) liver, not elsewhere classified; K57.30 Diverticulosis of large intestine without perforation or abscess without bleeding; K21.9 Gastro-esophageal reflux disease without esophagitis; I25.10 Atherosclerotic heart disease of native coronary artery without angina pectoris; I25.2 Old myocardial infarction; I10 Essential (primary) hypertension; D50.9 Iron deficiency anemia, unspecified; E11.9 Type 2 diabetes mellitus without complications; G47.33 Obstructive sleep apnea (adult) (pediatric); D12.3 Benign neoplasm of transverse colon; Z85.118 Personal history of other malignant neoplasm of bronchus and lung; Z90.2 Acquired absence of lung [part of]; Z86.010 Personal history of colon polyps; Z95.1 Presence of aortocoronary bypass graft; Z87.891 Personal history of nicotine dependence; Z79.82 Long term (current) use of aspirin; Z79.899 Other long term (current) drug therapy; Z88.8 Allergy status to other drugs, medicaments and biological substances; Z79.84 Long term (current) use of oral hypoglycemic drugs; Z79.02 Long term (current) use of antithrombotics/antiplatelets

== ENCOUNTER → 2019-12-25 | Outpatient (CLI) | payer MEDICARE, BC ==
[~2019-12-25] MED LIST changes: +ASPI-161 PO; +C 50TAB PO; +D31000TA2 PO; +FERR1TAB8 PO; +GLUCTAB6 PO; +KEYT1INJ IV; +MAGN64TASA PO; +PATIENT COMMENT; +POTA10TA14 PO; +PRED10TA2 PO; +QUES4POW PO; +REME30TA PO; +VITMTA PO; +[UNRECOGNIZED DRUG - CODE] SL
== END ==
LOC: M LABSMTC 08:45
PROVIDERS: ATTEND Anesthesiology
DX: Z01.812 Encounter for preprocedural laboratory examination (principal); Z20.828 Contact with and (suspected) exposure to other viral communicable diseases
CPT/HCPCS: C9803; U0003

== ENCOUNTER 2019-12-30 08:50 | Day surgery (SDC) | payer MEDICARE, BC ==
[~2019-12-30] VITALS: Ht 172.7 cm; Wt 66.6 kg
[~2019-12-30 08:50] MED LIST changes: +CEFUROXIME 1MG/0.1ML INTRACAMERAL INJ As Ordered ONE; +DUOVISC (0.50ML VISCOAT/0.55ML PROVISC) OPHTH KIT As Ordered ONE; +MIDAZOLAM INJ 2MG/2ML VIAL (J2250 PER 1MG) As Ordered ONE; +OFLOXACIN 0.3 % (OCUFLOX) OPTH SOL 5ML OS ONE; +PHENYLEPHRINE 2.5% OPHTH SOL 2ML OS ONE; +POVIDONE-IODINE 5% OPHTH PREP SOL 30ML As Ordered ONE; -PRED10TA2 PO; +PROPARACAINE 0.5% OPHTH SOL 15ML OS ONE; +TROPICAMIDE 1% OPHTH SOLN 2ML OS ONE; +fentaNYL 100 MCG/2 ML INJECTION (J3010) As Ordered ONE
[2019-12-30] MEDS ORDERED: BSS IRR 500ML/OMIDRIA 4ML IRR BAG (OR ONLY) (J1097 PER ML) As Ordered ONE (10:55)
[2019-12-30 11:52] VITALS: BP 120/80
[2020-01-25] MEDS ORDERED: PRED10TA2 PO (13:30)
== END 2019-12-30 11:52 | disposition home or self-care (01) ==
LOC: M SDC 08:50
PROVIDERS: ATTEND Ophthalmology
DX: H25.12 Age-related nuclear cataract, left eye (principal); I10 Essential (primary) hypertension; E78.5 Hyperlipidemia, unspecified; G47.30 Sleep apnea, unspecified; D50.9 Iron deficiency anemia, unspecified; E11.9 Type 2 diabetes mellitus without complications; I25.2 Old myocardial infarction; I71.4 Abdominal aortic aneurysm, without rupture; J44.9 Chronic obstructive pulmonary disease, unspecified; Z79.899 Other long term (current) drug therapy; Z79.84 Long term (current) use of oral hypoglycemic drugs; Z95.0 Presence of cardiac pacemaker; Z87.891 Personal history of nicotine dependence; Z79.02 Long term (current) use of antithrombotics/antiplatelets; Z85.118 Personal history of other malignant neoplasm of bronchus and lung
CPT/HCPCS: 66984; J1097; V2632

== ENCOUNTER → 2020-01-01 | Outpatient (CLI) | payer MEDICARE, BC ==
[~2020-01-01] MED LIST changes: -CEFUROXIME 1MG/0.1ML INTRACAMERAL INJ As Ordered ONE; -DUOVISC (0.50ML VISCOAT/0.55ML PROVISC) OPHTH KIT As Ordered ONE; -MIDAZOLAM INJ 2MG/2ML VIAL (J2250 PER 1MG) As Ordered ONE; -OFLOXACIN 0.3 % (OCUFLOX) OPTH SOL 5ML OS ONE; -PHENYLEPHRINE 2.5% OPHTH SOL 2ML OS ONE; -POVIDONE-IODINE 5% OPHTH PREP SOL 30ML As Ordered ONE; +PRED10TA2 PO; -PROPARACAINE 0.5% OPHTH SOL 15ML OS ONE; -TROPICAMIDE 1% OPHTH SOLN 2ML OS ONE; -fentaNYL 100 MCG/2 ML INJECTION (J3010) As Ordered ONE
== END ==
LOC: M LABSMTC 08:17
PROVIDERS: ATTEND Anesthesiology
DX: Z01.812 Encounter for preprocedural laboratory examination (principal); Z20.828 Contact with and (suspected) exposure to other viral communicable diseases
CPT/HCPCS: C9803; U0003

== ENCOUNTER 2020-01-06 07:33 | Day surgery (SDC) | payer MEDICARE, BC ==
[~2020-01-06] VITALS: Ht 172.7 cm; Wt 66.4 kg
[~2020-01-06 07:33] MED LIST changes: +BSS IRR 500ML/OMIDRIA 4ML IRR BAG (OR ONLY) (J1097 PER ML) As Ordered ONE; +CEFUROXIME 1MG/0.1ML INTRACAMERAL INJ As Ordered ONE; +DUOVISC (0.50ML VISCOAT/0.55ML PROVISC) OPHTH KIT As Ordered ONE; +OFLOXACIN 0.3 % (OCUFLOX) OPTH SOL 5ML OD ONE; +PHENYLEPHRINE 2.5% OPHTH SOL 2ML OD ONE; +POVIDONE-IODINE 5% OPHTH PREP SOL 30ML As Ordered ONE; -PRED10TA2 PO; +PROPARACAINE 0.5% OPHTH SOL 15ML OD ONE; +TROPICAMIDE 1% OPHTH SOLN 2ML OD ONE
[2020-01-06] MEDS ORDERED: fentaNYL 100 MCG/2 ML INJECTION (J3010) As Ordered ONE (09:37)
[2020-01-06] MEDS ORDERED: MIDAZOLAM INJ 2MG/2ML VIAL (J2250 PER 1MG) As Ordered ONE (09:37)
[2020-01-06 10:30] VITALS: BP 131/62
[2020-01-25] MEDS ORDERED: PRED10TA2 PO (13:30)
== END 2020-01-06 10:36 | disposition home or self-care (01) ==
LOC: M SDC 07:33
PROVIDERS: ATTEND Ophthalmology
DX: H25.11 Age-related nuclear cataract, right eye (principal); I25.10 Atherosclerotic heart disease of native coronary artery without angina pectoris; Z95.0 Presence of cardiac pacemaker; E11.9 Type 2 diabetes mellitus without complications; M81.0 Age-related osteoporosis without current pathological fracture; Z79.84 Long term (current) use of oral hypoglycemic drugs; Z79.899 Other long term (current) drug therapy; Z79.82 Long term (current) use of aspirin; D50.9 Iron deficiency anemia, unspecified; Z79.02 Long term (current) use of antithrombotics/antiplatelets; Z88.8 Allergy status to other drugs, medicaments and biological substances
CPT/HCPCS: 66984; J1097; J2250; J3010; V2632

== ENCOUNTER → 2020-02-07 | Outpatient (REF) | payer MEDICARE, BC ==
[~2020-02-07] MED LIST changes: -BSS IRR 500ML/OMIDRIA 4ML IRR BAG (OR ONLY) (J1097 PER ML) As Ordered ONE; -CEFUROXIME 1MG/0.1ML INTRACAMERAL INJ As Ordered ONE; -DUOVISC (0.50ML VISCOAT/0.55ML PROVISC) OPHTH KIT As Ordered ONE; -OFLOXACIN 0.3 % (OCUFLOX) OPTH SOL 5ML OD ONE; -PHENYLEPHRINE 2.5% OPHTH SOL 2ML OD ONE; -POVIDONE-IODINE 5% OPHTH PREP SOL 30ML As Ordered ONE; +PRED10TA2 PO; -PROPARACAINE 0.5% OPHTH SOL 15ML OD ONE; -TROPICAMIDE 1% OPHTH SOLN 2ML OD ONE
== END ==
LOC: M LABDRAWC 11:33
PROVIDERS: ATTEND Physician Assistant
DX: I47.1 Supraventricular tachycardia (principal)

== ENCOUNTER → 2020-03-30 | Outpatient (CLI) | payer MEDICARE, BC ==
[~2020-03-30] MED LIST changes: +MIRT-60 PO; -REME30TA PO
--- NOTE | 2020-03-31 09:42 | REP ---
INDICATION: RT ARM MASS. COMPARISON: None. TECHNIQUE: Real-time sonographic evaluation of right upper arm performed at the site of a palpable lump. FINDINGS: An oval predominantly hypoechoic heterogeneous mass is visualized with mild distal acoustic shadowing. This measures 7.3 x 3.3 x 3.9 cm. This is adjacent to the proximal right humerus laterally. A mass is also incidentally noted at the left posterolateral deltoid while scanning the contralateral side for comparison purposes. This mass demonstrates both hypoechoic and hyperechoic components and measures 5.5 x 2.2 x 3.8 cm. Both masses appear to involve the musculature at their respective locations. IMPRESSION: Solid soft tissue masses as discussed above, 1 is located adjacent to the proximal right humerus and the other is located at the left posterolateral deltoid. <Electronically signed by Bishop Schwab > 03/31/20 0938
== END ==
LOC: M RAD 11:13
PROVIDERS: ATTEND Family Medicine
DX: R93.6 Abnormal findings on diagnostic imaging of limbs (principal); M79.89 Other specified soft tissue disorders

== ENCOUNTER → 2020-04-13 | Outpatient (REF) | payer MEDICARE, BC ==
[~2020-04-13] MED LIST changes: +CEPH500C PO; +FERR325T3 PO
[2020-04-13 16:18] LABS: BASO # 0.1 10^3/uL (0.0-0.2); BASO % 0.4 % (0.0-1.0); EOS % 0.3 % (0.0-3.0); HEMATOCRIT 35.6 % (42.0-52.0); HEMOGLOBIN 11.4 g/dl (13.5-17.5); LYMPH # 1.6 10^3/uL (1.5-5.0); LYMPH % 13.6 % (24.0-44.0); MEAN CORPUSCULAR HEMOGLOBIN 34.7 pg (27.0-33.0); MEAN CORPUSCULAR VOLUME 108.2 fl (80.0-96.0); MONO # 0.9 10^3/uL (0.0-0.8); MONO % 7.9 % (0.0-5.0); NEUTROPHILS % 77.2 % (36.0-66.0); PLATELET COUNT, AUTOMATED 346 10^3/uL (150-450); RED BLOOD COUNT 3.29 10^6/uL (4.30-6.10); WHITE BLOOD COUNT 11.7 10^3/uL (4.0-10.0)
[2020-04-13 16:43] LABS: FERRITIN 101 NG/ML (26-388); IRON (FE) 47 UG/DL (65-175)
== END ==
LOC: M SFHCCLAY 10:14
PROVIDERS: ATTEND Family Medicine
DX: D50.9 Iron deficiency anemia, unspecified (principal); I10 Essential (primary) hypertension

== ENCOUNTER → 2020-04-14 | Outpatient (CLI) | payer MEDICARE, BC ==
[~2020-04-14] MED LIST changes: +LIDOCAINE 1% MDV 20ML VIAL As Ordered ONE; +SODIUM BICARBONATE 8.4% INJ 50MEQ 50 ML VIAL As Ordered ONE
[2020-04-14 12:16] VITALS: BP 155/69
--- NOTE | 2020-04-14 14:59 | REP ---
INDICATION: RT UPPER ARM MASS W/ H/O LUNG CA. COMPARISON: None. TECHNIQUE: The procedure was performed by FELIX Villatoro, under the direct supervision of Dr. Ellis. The risks and benefits of the procedure were explained to the patient and an informed consent was obtained both verbally and written. Directly prior to the start of the procedure a formal time-out was completed in the procedure room. FINDINGS: Using ultrasound guidance the right posterior deltoid arm mass was localized. The skin was prepped and draped in a sterile fashion. Five mL of buffered lidocaine was used as a local anesthetic. Using ultrasound guidance a 17/18 gauge coaxial needle biopsy system was inserted and advanced into the right posterior deltoid arm mass. Six core biopsy specimens were obtained and sent to pathology for further analysis. The patient tolerated the procedure well and there were no immediate complications. After the appropriate amount of monitored convalescence the patient was discharged from the department. IMPRESSION: 1. Ultrasound-guided right posterior deltoid arm mass biopsy. <Electronically signed by Nafisa Glass > 04/14/20 1435 <Electronically signed by Cleveland Ellis > 04/14/20 [id number]
== END ==
LOC: M IRPRO 11:57
PROVIDERS: ATTEND Internal Medicine Medical Oncology
DX: R22.31 Localized swelling, mass and lump, right upper limb (principal); Z85.118 Personal history of other malignant neoplasm of bronchus and lung

== ENCOUNTER → 2020-04-28 | Outpatient (REF) | payer MEDICARE, BC ==
[~2020-04-28] MED LIST changes: -LIDOCAINE 1% MDV 20ML VIAL As Ordered ONE; -SODIUM BICARBONATE 8.4% INJ 50MEQ 50 ML VIAL As Ordered ONE
== END ==
LOC: M SFHCCLAY 11:18
PROVIDERS: ATTEND Family Medicine
DX: D50.9 Iron deficiency anemia, unspecified (principal)

== ENCOUNTER → 2020-05-09 | Outpatient (REF) | payer MEDICARE, BC ==
[~2020-05-09] MED LIST changes: +AMLO25TA PO
[2020-05-12 16:12] LABS: ANA (HEP2) Negative (.); CYCLIC CITRULLINATED PEPTIDE 3 units (0-19)
== END ==
LOC: M SFHCCLAY 09:40
PROVIDERS: ATTEND Family Medicine
DX: I73.00 Raynaud's syndrome without gangrene (principal)
CPT/HCPCS: 82595; 85652; 86038; 86140; 86200; 86256; G0463

== ENCOUNTER → 2020-05-18 | Outpatient (REF) | payer MEDICARE, BC ==
[2020-05-18 17:04] LABS: FOLATE > 24.0 NG/ML (>5.4); VITAMIN B12 LEVEL 809 PG/ML (247-911)
== END ==
LOC: M SFHCCLAY 12:11
PROVIDERS: ATTEND Family Medicine
DX: D53.9 Nutritional anemia, unspecified (principal)

== ENCOUNTER 2020-06-02 07:08 | Outpatient (CLI) | payer MEDICARE, BC ==
[~2020-06-02] VITALS: Ht 172.7 cm; Wt 71.3 kg
[2020-06-02 07:28] VITALS: BP 179/82
[2020-06-02] MEDS ORDERED: FERRIC CARBOXYMALTOSE INJ 750 MG, VIAL MATE ADAPTER 1 EACH in NS 250 ML IV ONE (07:30)
[2020-06-02] MEDS ORDERED: NS 1,000 ML IV SCH (07:30)
[2020-06-02 07:42] VITALS: BP 166/77
[2020-06-02 09:19] VITALS: BP 167/72
== END 2020-06-02 09:20 | disposition home or self-care (01) ==
LOC: M INFU 07:08
PROVIDERS: ATTEND Internal Medicine Medical Oncology
DX: D53.9 Nutritional anemia, unspecified (principal); Z88.8 Allergy status to other drugs, medicaments and biological substances
CPT/HCPCS: 96365; J1439; M0239

== ENCOUNTER 2020-06-09 07:16 | Outpatient (CLI) | payer MEDICARE, BC ==
[~2020-06-09] VITALS: Ht 172.7 cm; Wt 71.3 kg
[2020-06-09] MEDS ORDERED: FERRIC CARBOXYMALTOSE INJ 750 MG, VIAL MATE ADAPTER 1 EACH in NS 250 ML IV ONE (07:30)
[2020-06-09 07:41] VITALS: BP 160/84
[2020-06-09 08:53] VITALS: BP 142/68
== END 2020-06-09 08:50 | disposition home or self-care (01) ==
LOC: M INFU 07:16
PROVIDERS: ATTEND Internal Medicine Medical Oncology
DX: D53.9 Nutritional anemia, unspecified (principal); Z88.8 Allergy status to other drugs, medicaments and biological substances
CPT/HCPCS: 96365; J1439

== ENCOUNTER → 2020-07-07 | Outpatient (REF) | payer MEDICARE, BC ==
[2020-07-07 16:15] LABS: HEMATOCRIT 40.9 % (42.0-52.0); HEMOGLOBIN 12.8 g/dl (13.5-17.5); MEAN CORPUSCULAR HGB CONC 31.3 g/dl (32.0-36.5); MEAN CORPUSCULAR VOLUME 108.5 fl (80.0-96.0); PLATELET COUNT, AUTOMATED 390 10^3/uL (150-450); RED BLOOD COUNT 3.77 10^6/uL (4.30-6.10); WHITE BLOOD COUNT 11.3 10^3/uL (4.0-10.0)
[2020-07-07 16:44] LABS: ALBUMIN 3.4 GM/DL (3.2-5.2); ALT/SGPT 28 U/L (12-78); BILIRUBIN,TOTAL 0.3 MG/DL (0.2-1.0); BLOOD UREA NITROGEN 13 MG/DL (7-18); CALCIUM LEVEL 9.4 MG/DL (8.8-10.2); CARBON DIOXIDE LEVEL 31 MEQ/L (21-32); CHLORIDE LEVEL 106 MEQ/L (98-107); CHOLESTEROL LEVEL 157 MG/DL (<200); CHOLESTEROL RISK RATIO 2.907 (<5); CREATININE FOR GFR 1.12 MG/DL (0.70-1.30); GLOMERULAR FILTRATION RATE > 60.0 (>42); GLUCOSE, FASTING 92 MG/DL (70-100); HDL CHOLESTEROL 54 MG/DL (>40); LDL CHOLESTEROL 58 MG/DL (<100); MAGNESIUM LEVEL 2.3 MG/DL (1.8-2.4); NON-HDL-C 103 MG/DL; POTASSIUM SERUM 4.8 MEQ/L (3.5-5.1); SODIUM LEVEL 140 MEQ/L (136-145); TOTAL PROTEIN 6.2 GM/DL (6.4-8.2); TRIGLYCERIDES LEVEL 227 MG/DL (<150)
== END ==
LOC: M LABDRAWC 15:50
PROVIDERS: ATTEND Physician Assistant
DX: I25.10 Atherosclerotic heart disease of native coronary artery without angina pectoris (principal); I10 Essential (primary) hypertension; E78.00 Pure hypercholesterolemia, unspecified; I47.1 Supraventricular tachycardia
CPT/HCPCS: 36415; 80053; 80061; 83735; 85027; G0463

== ENCOUNTER 2020-08-23 12:09 | Outpatient (CLI) | payer MEDICARE, BC ==
[~2020-08-23] VITALS: Ht 172.7 cm; Wt 71.3 kg
[2020-08-23 12:24] VITALS: BP 147/67
[2020-08-23] MEDS ORDERED: FERRIC CARBOXYMALTOSE INJ 750 MG, VIAL MATE ADAPTER 1 EACH in NS 250 ML IV ONE (12:30)
[2020-08-23 13:40] VITALS: BP 149/68
== END 2020-08-23 13:40 | disposition home or self-care (01) ==
LOC: M INFU 12:09
PROVIDERS: ATTEND Internal Medicine Medical Oncology
DX: D50.9 Iron deficiency anemia, unspecified (principal); Z79.899 Other long term (current) drug therapy
CPT/HCPCS: 96365; J1439

== ENCOUNTER → 2020-08-29 | Outpatient (REF) | payer MEDICARE, BC | LOC: M LAB REF 11:12 | PROVIDERS: ATTEND Internal Medicine Gastroenterology | DX: R19.7 Diarrhea, unspecified (principal) ==

== ENCOUNTER → 2020-10-13 | Outpatient (CLI) | payer MEDICARE, BC ==
[~2020-10-13] MED LIST changes: +OMEP40CA4 PO; -OMEP40CA97 PO
--- NOTE | 2020-10-13 12:16 | REP ---
INDICATION: LUNG CA LT F/U. COMPARISON: CTA 06/29/2019; CT without 07/24/2018, 01/01/2018 TECHNIQUE: Noncontrast scanning through the chest with coronal and sagittal reconstructions provided. FINDINGS: The lung ayoub are well inflated. Stable subpleural nodular density lateral basal segment left lower lobe on image 76 and 77. There are other small nodular foci deep sulcus left lower lobe in the medial basal segment appear more prominent compared to the CTA last year that are unchanged but there is a new nodule pleural based and 10 mm in diameter on image 86. This is not present on the 2 previous scans. It is likely that all 3 of these are related to mucoid impaction and bronchiectasis. Curvilinear fibrotic change in the right middle lobe and lingular segments there is a stable nodule in the medial segment of the right middle lobe representing a granuloma. Surgical changes from subtotal right upper lobectomy are again seen some curvilinear fibro atelectatic change perihilar region on the left. No other new or acute findings. There is bronchiectatic change in both lower lung zones. Heart size not enlarged. There is now a dual lead pacer unit over the left upper chest and leads terminating in the right atrium and right ventricle. Sternotomy wires and mediastinal clips noted. Calcifications of the aorta from root the none through descending portion scattered and unchanged no aneurysm. Prominent central pulmonary arteries tapering rapidly consistent with COPD and pulmonary artery hypertension. No pathologic sized mediastinal or hilar adenopathy. No axillary or supraclavicular mass. Bone windows show the thoracic and upper lumbar spondylosis without acute finding. The sternotomy is well healed. Visualized medial clavicles, portions of scapulae, humeral heads and ribs are all unremarkable. The upper abdomen show no hiatal hernia spleen is not enlarged but has a calcifications. Liver grossly intact that portion gallbladder included without stones. A portion of the aortic stent graft is seen on this examination as before. The adrenal glands and upper poles of kidneys are intact. Visualized pancreas intact. IMPRESSION: 1. Postoperative changes in the left hemithorax with 1 new 10 mm peripheral nodule adjacent 2 previous nodules most likely a mucoid impaction from the known cylindrical bronchiectatic change in that region. This may be watched. No pleural effusion, new parenchymal mass or infiltrates or other acute finding. 2. Prior sternotomy well-healed and a new dual lead pacer present. 3. No pathologic mediastinal or hilar adenopathy. The upper abdomen showed small portion of an aortic stent graft. No new or acute finding. <Electronically signed by Tanner Foreman > 10/13/20 [id number]
== END ==
LOC: M RAD 11:03
PROVIDERS: ATTEND Family Medicine
DX: C34.92 Malignant neoplasm of unspecified part of left bronchus or lung (principal); Z95.0 Presence of cardiac pacemaker; Z95.828 Presence of other vascular implants and grafts; R91.1 Solitary pulmonary nodule

== ENCOUNTER 2020-10-19 18:47 | Inpatient (IN) | payer MEDICARE, BC ==
[~2020-10-19] VITALS: Ht 170.2 cm; Wt 63.7 kg
[~2020-10-19 18:47] MED LIST changes: +META28.32 PO; +PEPP90CA PO; +VERA120C3 PO
[2020-10-19] MEDS ORDERED: OMEP-218 PO (19:57)
[2020-10-19] MEDS ORDERED: Iron PO (19:57)
[2020-10-19] MEDS ORDERED: ONDANSETRON 4MG/2ML VIAL IV ONE (20:15)
[2020-10-19] MEDS ORDERED: NS 1,000 ML IV ONE (20:15)
[2020-10-19 20:47] LABS: BASO # 0.1 10^3/uL (0.0-0.2); BASO % 0.3 % (0.0-1.0); HEMATOCRIT 38.8 % (42.0-52.0); HEMOGLOBIN 12.5 g/dl (13.5-17.5); LYMPH # 0.6 10^3/uL (1.5-5.0); LYMPH % 2.8 % (24.0-44.0); MEAN CORPUSCULAR HEMOGLOBIN 33.8 pg (27.0-33.0); MEAN CORPUSCULAR HGB CONC 32.2 g/dl (32.0-36.5); MEAN CORPUSCULAR VOLUME 104.9 fl (80.0-96.0); MONO # 1.7 10^3/uL (0.0-0.8); NEUTROPHILS # 19.1 10^3/uL (1.5-8.5); NEUTROPHILS % 88.5 % (36.0-66.0); PLATELET COUNT, AUTOMATED 565 10^3/uL (150-450)
[2020-10-19] MEDS ORDERED: FERR325T81 PO (20:52)
[2020-10-19] MEDS ORDERED: HOME MED LIST COMPLETE! XX SCH (20:55)
[2020-10-19] MEDS ORDERED: ATORVASTATIN 20 MG TAB PO SCH (21:00)
[2020-10-19] MEDS ORDERED: CLOPIDOGREL 75 MG TAB PO SCH (21:00)
[2020-10-19] MEDS: DOCUSATE SODIUM 100MG CAPSULE PO SCH (21:00)
[2020-10-19] MEDS ORDERED: MIRTAZAPINE 15 MG TAB PO SCH (21:00)
[2020-10-19 21:20] LABS: ALBUMIN 3.2 GM/DL (3.2-5.2); BILIRUBIN,DIRECT 0.2 MG/DL (0.0-0.2); BILIRUBIN,TOTAL 0.4 MG/DL (0.2-1.0); CALCIUM LEVEL 9.2 MG/DL (8.8-10.2); CREATININE FOR GFR 1.37 MG/DL (0.70-1.30); GLOMERULAR FILTRATION RATE 53.6 (>42); POTASSIUM SERUM 4.9 MEQ/L (3.5-5.1); TOTAL PROTEIN 6.3 GM/DL (6.4-8.2)
[2020-10-19] MEDS ORDERED: ISOVUE-370 76% 100ML VIAL As Ordered ONE (21:24)
[2020-10-19 21:26] LABS: WHITE BLOOD COUNT 21.6 10^3/uL (4.0-10.0)
--- NOTE | 2020-10-19 22:51 | REPVR ---
PROCEDURE INFORMATION: Exam: CT Abdomen And Pelvis With Contrast Exam date and time: 10/19/2020 9:50 PM Age: 75 years old Clinical indication: Nausea and vomiting; Prior surgery; Additional info: N/v/d, possible colitis TECHNIQUE: Imaging protocol: Computed tomography of the abdomen and pelvis with contrast. Radiation optimization: All CT scans at this facility use at least one of these dose optimization techniques: automated exposure control; mA and/or kV adjustment per patient size (includes targeted exams where dose is matched to clinical indication); or iterative reconstruction. Contrast material: ISOVUE 370; Contrast volume: 100 ml; Contrast route: INTRAVENOUS (IV); COMPARISON: CT ABD/PEL W/IV ORAL CONTRAS 12/15/2019 6:35 PM FINDINGS: Tubes, catheters and devices: Pacemaker in position. Lungs: Minimal scattered bibasilar fibro-atelectatic change with minimal associated scattered bronchiectasis. Liver: The liver demonstrates a minimal left hepatic cyst measuring 6 mm which is unchanged from the prior study. Gallbladder and bile ducts: Normal. No calcified stones. No ductal dilation. Pancreas: Normal. No ductal dilation. Spleen: Several splenic calcifications are noted. Adrenal glands: Normal. No mass. Kidneys and ureters: Normal. No hydronephrosis. Stomach and bowel: Much of the colon is collapsed or contracted with mild wall thickening and some areas minimal pericolonic edema and increased vascularity distal to the hepatic flexure. Appendix: A normal appendix is seen. Intraperitoneal space: Unremarkable. No free air. No significant fluid collection. Vasculature: Aorto bi-iliac graft extending through an abdominal aortic aneurysm measuring 3.6 x 4.1 cm. No endoleak is identified. Lymph nodes: Unremarkable. No enlarged lymph nodes. Urinary bladder: Unremarkable as visualized. Reproductive: Unremarkable as visualized. Bones/joints: Status post sternotomy. Soft tissues: Unremarkable. IMPRESSION: 1. Mild nonspecific colitis distal to the hepatic flexure which is increased since 12/15/2019. 2. Minimal bibasilar fibro-atelectatic change with minimal associated bronchiectasis which is unchanged. 3. Aorto bi-iliac graft which is unchanged from the prior study. Electronically signed by: Dae Sandoval On 10/19/2020 22:50:44 PM
[2020-10-19] MEDS ORDERED: VANCOMYCIN ORAL SOL 250MG/5ML ORAL SYRINGE PO ONE (23:00)
[2020-10-20] MEDS ORDERED: MOM 30ML SUSPENSION UDC PO PRN (00:15)
[2020-10-20] MEDS ORDERED: ACETAMINOPHEN TAB 650MG DOSE (2X325MG) PO PRN (00:15)
[2020-10-20] MEDS ORDERED: MAALOX 30 ML SUSP *UDC PO PRN (00:15)
--- NOTE | 2020-10-20 00:22 | HPEPDOC ---
[facility] Medical History & Physical Date of Admission Oct 20, 2020 Date of Service: Oct 20, 2020 History and Physical CHIEF COMPLAINT: INTRACTABLE DIARRHEA, VOMITING HISTORY OF PRESENT ILLNESS: Mr. 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 difficile, presented to the ER with a 2 day history of intractable diarrhea with worsening vomiting as well as abdominal pain. Patient was last diagnosed with C. difficile colitis in August 2020 and underwent treatment with by mouth vancomycin, which resulted in improvement, although diarrhea never fully resolved. Patient denies any chest pain, shortness of breath, palpitations, objective, fevers, chills, focal neurological deficits. Patient has had limited by mouth intake for the past 2 days. Patient follows with Dr. Patterson at the [facility] for skin cancer located on his scalp. Patient has been on pembrolizumab, but it was DC (03/2020) as thought to be causing his diarrhea. He underwent colonoscopy by Dr. Schwab in 12/2019. Was treated for C diff by his GI specialist in 08/2020 with JOEL rivera. 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 REVIEW OF SYSTEMS: 10 point review of systems conducted, regular findings are noted in HPI HOME MEDICATIONS: Please see below. PHYSICAL EXAMINATION: VITAL SIGNS: please see below General: NAD, comfortable HEENT: PERRLA, EOMI, sclerae clear Neck: supple, normal ROM, no JVD Respiratory: lungs CTAB, no wheeze, no rales, no crackles CVS: RRR, normal S1, S2, no murmurs Abdo: Pain to palpation of the left upper quadrant. No distention. No guarding. No rigidity. Extremities: no edema, pulses 2+ MSK: no joint deformities, normal ROM Neuro: no focal neuro deficits, moving all 4 extremities, CN2-12 intact. Strength 5/5 in all 4 extremities. No nystagmus. Psych: calm, cooperative, AAO x 3 LABORATORY DATA: See below. IMAGING: CT abdo pelvis with IV contrast (10/19/20): 1. Mild nonspecific colitis distal to the hepatic flexure which is increased since 12/15/2019. 2. Minimal bibasilar fibro-atelectatic change with minimal associated bronchiectasis which is unchanged. 3. Aorto bi-iliac graft which is unchanged from the prior study. MICROBIOLOGY: Please see below. ASSESSMENT: Mr. 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 difficile, presented to the ER with a 2 day history of intractable diarrhea with worsening vomiting as well as abdominal pain. Patient was last diagnosed with C. difficile colitis in August 2020 and underwent treatment with by mouth vancomycin, which resulted in improvement, although diarrhea never fully resolved. Patient denies any chest pain, shortness of breath, palpitations, objective, fevers, chills, focal neurological deficits. Patient has had limited by mouth intake for the past 2 days. . 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 Patterson at [facility] - was on pemrbolizumab since 03/2018, stopped in 04/2020 as thought it may be causing diarrhea - reviewed notes from Dr. Patterson - needs to see personnel research psychologist, before plan for systemic therapy if no localized therapeutic options available Colitis/Diarrhea possibly 2/2 C diff recurrence - CT findings c/w colitis in hepatic flexure. leukocytosis, WBC 21.6. Afebrile. - poor PO intake, dehydrated - ordered C diff PCR, GI panel, unable to give stool in ER - last treated for C diff 08/[address] Singh in [place], [place] - prior admissions document med effect of pembrolizumab, but it was DC in 03/2020 - last colonoscopy 12/[address] Schwab, 2 polyps hepatic flexure, decreased mucosa vascular patter in sigmoid colon, biopsies c/w colitis. - PO vanco started by ER, will switch to dificid given high clinical suspicion for C diff - will add empiric regimen of ciprofloxacin and flagyl for treatment of infectious colitis. - start probiotics - f/u GI panel, stool calprotectin, lactoferrin, blood cultures. - IVF repletion, NS 125 cc/hr - monitor UOP #DAVID - likely pre-renal in setting of copious GI losses - repeat BMP after fluid repletion #Macrocytic Anemia #Thrombocytosis - being seen by Dr. Patterson, last seen 10/19/20 - baseline Hgb > 10 - per notes, planned for bone marrow aspiration and biopsy, BCR/ABL testing - patient is off chronic prednisone - Hgb appropriate at this time at 12.5. - thrombocytosis possibly reactive in setting of infection #osteoporosis - f/u PCP Chronic CAD s/p CABG - continue ASA and statin - Dr. Mendez advised to stop plavix per notes, but present on patient's med rec and PCP notes - day team to clarify with cardiology service # Essential hypertension -c/w verapamil, amlodipine #DM2 - ISS, FSBS AC and HS - hypoglycemic precautions - hold oral meds #GI ppx - c/w omeprazole #KELY - to ask family to bring in machine #Soft tsissue masses R arm, and upper back - FNA mass R arm 03/2020, benign adispose tissue, skeletal muscle - Dr. Patterson referred patient to ortho for excisio DVT PROPHYLAXIS: TEDs, SCDs. Vital Signs Vital Signs Date Time Temp Pulse Resp B/P (MAP) Pulse Ox O2 Delivery O2 Flow Rate FiO2 10/19/20 21:15 99.8 10/19/20 21:06 93 18 94 Room Air 10/19/20 21:00 146/63 (90) Laboratory Data Labs 24H Laboratory Tests 2 8/5/21 20:28: Immature Granulocyte % (Auto) 0.4, Neutrophils (%) (Auto) 88.5H, Lymphocytes (%) (Auto) 2.8L, Monocytes (%) (Auto) 8.0, Eosinophils (%) (Auto) 0.0, Basophils (%) (Auto) 0.3, Neutrophils # (Auto) 19.1H, Lymphocytes # (Auto) 0.6L, Monocytes # (Auto) 1.7H, Eosinophils # (Auto) 0.0, Basophils # (Auto) 0.1, Nucleated Red Blood Cells % (auto) 0.0, Anion Gap 6L, Glomerular Filtration Rate 53.6, Lactic Acid Level 1.3, Calcium Level 9.2, Total Bilirubin 0.4, Direct Bilirubin 0.2, Aspartate Amino Transf (AST/SGOT) 18, Alanine Aminotransferase (ALT/SGPT) 20, Alkaline Phosphatase 205H, Total Protein 6.3L, Albumin 3.2, Albumin/Globulin Ratio 1.0, Lipase 45L 10/19/20 23:40: CBC/BMP Laboratory Tests 10/19/20 20:28 Microbiology Microbiology 10/19/20 Blood Culture, Received Pending 10/19/20 Blood Culture, Received Pending Home Medications Scheduled Amlodipine Besylate (Amlodipine Besylate) 2.5 Mg Tablet, 2.5 MG PO DAILY Ascorbic Acid (Vitamin C) 500 Mg Tablet, 500 MG PO BID Aspirin (Aspirin EC) 81 Mg Tablet.dr, 81 MG PO DAILY Atorvastatin Calcium (Atorvastatin Calcium) 80 Mg Tab, 80 MG PO QHS Cholecalciferol (Vitamin D3) (Vitamin D3) 1,000 Unit Tablet, 1,000 UNITS PO DAILY Clopidogrel Bisulfate (Clopidogrel) 75 Mg Tab, 75 MG PO QHS Ferrous Sulfate (Iron) 325 Mg Tablet, 65 MG PO DAILY Finasteride (Finasteride) 5 Mg Tablet, 5 MG PO DAILY Gluc Sams/Chondro Sams A/Vit C/Mn (Glucosamine Chondroitin Tab) 1 Each Tablet, 2 TAB PO DAILY Metformin HCl (Metformin HCl) 500 Mg Tab, 500 MG PO BID Mirtazapine (Remeron) 30 Mg Tablet, 30 MG PO QHS Multivitamins (Thera M Plus Tablet) 1 Each Tablet, 1 TAB PO DAILY Omeprazole (Omeprazole) 20 Mg Capsule.dr, 20 MG PO DAILY Potassium Chloride (Potassium Chloride) 10 Meq Tablet.er, 10 MEQ PO DAILY Verapamil HCl (Verapamil Sr) 120 Mg Cap24h.pel, 120 MG PO DAILY Allergies Coded Allergies: promethazine (Verified Adverse Reaction, Intermediate, Anxiety, rage, 12/30/19) EBENEZER MACK MD Oct 20, 2020 00:21
[2020-10-20 00:40] LABS: RSV AMPLIFICATION NEGATIVE (NEGATIVE)
[2020-10-20] MEDS ORDERED: DEXTROSE 50% 50 ML SYRINGE IV PRN (00:40)
[2020-10-20] MEDS ORDERED: GLUCOSE 4GM CHEW TABLET PO PRN (00:40)
[2020-10-20] MEDS ORDERED: GLUCAGON INJ 1MG VIAL SC PRN (00:40)
[2020-10-20 01:42] VITALS: BP 135/69
[2020-10-20] MEDS ORDERED: CIPROFLOXACIN 400 MG in IV 1 EA IV SCH (02:00)
[2020-10-20] MEDS: ASCORBIC ACID 500 MG TAB PO SCH ×2 (02:01→09:27)
[2020-10-20] MEDS ORDERED: metroNIDAZOLE 500 MG in IV 1 EA IV SCH (03:00)
[2020-10-20 06:00] VITALS: BP 140/61
[2020-10-20] MEDS ORDERED: HEPARIN SOD (PORCINE) 5000UNITS/ML 1ML VIAL/SYRINGE SC SCH (06:00)
[2020-10-20] MEDS: HumaLOG INSULIN (NovoLOG) PER UNIT SC SCH ×2 (07:30→11:57)
[2020-10-20] MEDS: DOCUSATE SODIUM 100MG CAPSULE PO SCH (08:15)
[2020-10-20] MEDS ORDERED: FERROUS SULFATE 325MG TAB PO SCH (09:00)
[2020-10-20] MEDS ORDERED: ASPIRIN 81MG ENTERIC TABLET PO SCH (09:00)
[2020-10-20] MEDS ORDERED: OMEPRAZOLE 20 MG CAP PO SCH (09:00)
[2020-10-20] MEDS ORDERED: MULTIVITAMINS/MINERALS THERAP 1 TAB PO SCH (09:00)
[2020-10-20] MEDS ORDERED: LACTOBACILLUS ACIDOPHILUS CAP (BACID) PO SCH (09:00)
[2020-10-20] MEDS ORDERED: VERAPAMIL 120 MG SR TAB PO SCH (09:00)
[2020-10-20] MEDS ORDERED: POTASSIUM CHLORIDE 10 MEQ SR TABLET PO SCH (09:00)
[2020-10-20] MEDS ORDERED: FIDAXOMICIN 200 MG TAB (DIFICID) PO SCH (09:00)
[2020-10-20] MEDS ORDERED: FINASTERIDE 5 MG TAB PO SCH (09:00)
[2020-10-20] MEDS ORDERED: VITAMIN D 1,000 INTERNATIONAL UNITS TABLET PO SCH (09:00)
[2020-10-20 09:26] VITALS: BP 135/58
[2020-10-20] MEDS ORDERED: FIDA200TA PO (09:58)
[2020-10-20] MEDS ORDERED: RISATAB3 PO (09:58)
[2020-10-20 10:52] LABS: BASO # 0.1 10^3/uL (0.0-0.2); BASO % 0.5 % (0.0-1.0); EOS % 0.1 % (0.0-3.0); HEMATOCRIT 33.8 % (42.0-52.0); HEMOGLOBIN 10.9 g/dl (13.5-17.5); LYMPH # 1.5 10^3/uL (1.5-5.0); LYMPH % 11.7 % (24.0-44.0); MEAN CORPUSCULAR HEMOGLOBIN 34.1 pg (27.0-33.0); MEAN CORPUSCULAR HGB CONC 32.2 g/dl (32.0-36.5); MEAN CORPUSCULAR VOLUME 105.6 fl (80.0-96.0); MONO # 1.3 10^3/uL (0.0-0.8); MONO % 10.2 % (2.0-8.0); NEUTROPHILS # 9.8 10^3/uL (1.5-8.5); NEUTROPHILS % 77.1 % (36.0-66.0); PLATELET COUNT, AUTOMATED 509 10^3/uL (150-450); WHITE BLOOD COUNT 12.7 10^3/uL (4.0-10.0)
[2020-10-20 11:22] LABS: ALBUMIN 2.8 GM/DL (3.2-5.2); BILIRUBIN,TOTAL 0.2 MG/DL (0.2-1.0); CALCIUM LEVEL 8.7 MG/DL (8.8-10.2); CREATININE FOR GFR 1.4 MG/DL (0.70-1.30); GLOMERULAR FILTRATION RATE 52.3 (>42); POTASSIUM SERUM 5.4 MEQ/L (3.5-5.1); TOTAL PROTEIN 5.5 GM/DL (6.4-8.2)
--- NOTE | 2020-10-20 14:25 | DS.PDOC ---
Discharge Summary General Date of Admission Oct 19, 2020 at 18:48 Date of Discharge 10/20/20 Discharge Summary PROCEDURES PERFORMED DURING STAY: [None]. 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 HISTORY OF PRESENT ILLNESS: Mr. 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 difficile, presented to the ER with a 2 day history of intractable diarrhea with worsening vomiting as well as abdominal pain. Patient was last diagnosed with C. difficile colitis in August 2020 and underwent treatment with by mouth vancomycin, which resulted in improvement, although diarrhea never fully resolved. Patient denies any chest pain, shortness of breath, palpitations, objective, fevers, chills, focal neurological deficits. Patient has had limited by mouth intake for the past 2 days. Patient follows with Dr. Patterson at the [facility] for skin cancer located on his scalp. Patient has been on pembrolizumab, but it was DC (03/2020) as thought to be causing his diarrhea. He underwent colonoscopy by Dr. Schwab in 12/2019. Was treated for C diff by his GI specialist in 08/2020 with JOEL rivera. HOSPITAL COURSE: His GI panel returned positive for C. difficile. His abdominal pain completely resolved. His laboratory studies significantly improved. He was seen by PT and deemed safe for discharge. Patient was anxious to return home. Case was discussed extensively with his and patient is discharged home with outpatient follow-up. His C. difficile is being treated with Dificid. DISCHARGE MEDICATIONS: Please see below. ALLERGIES: Please see below. PHYSICAL EXAMINATION ON DISCHARGE: VITAL SIGNS: Please see below. General: NAD, comfortable, elderly, frail HEENT: PERRLA, EOMI, sclerae clear, hard of hearing Neck: supple, normal ROM, no JVD Respiratory: lungs CTAB, no wheeze, no rales, no crackles CVS: RRR, normal S1, S2, no murmurs Abdo: soft, NT, +BS Extremities: no edema MSK: no joint deformities, normal ROM Neuro: no focal neuro deficits, moving all 4 extremities Psych: calm, cooperative, AAO x 3 LABORATORY DATA: Please see below. ACTIVITY: [As tolerated]. DISPOSITION: Discharge home DISCHARGE INSTRUCTIONS: 1. Follow up with PCP in 3-5 days [address] Singh in [place] in 3-7 days DISCHARGE CONDITION: [Stable]. TIME SPENT ON DISCHARGE: 35 minutes. Vital Signs/I&Os Vital Signs Date Time Temp Pulse Resp B/P (MAP) Pulse Ox O2 Delivery O2 Flow Rate FiO2 10/20/20 09:26 72 135/58 10/20/20 06:00 98.7 16 95 Room Air I&O- Last 24 Hours up to 6 AM 10/20/20 06:00 Intake Total 1900 ml Output Total 150 ml Balance 1750 ml Laboratory Data Labs 24H Laboratory Tests 2 10/19/20 20:28: Immature Granulocyte % (Auto) 0.4, Neutrophils (%) (Auto) 88.5H, Lymphocytes (%) (Auto) 2.8L, Monocytes (%) (Auto) 8.0, Eosinophils (%) (Auto) 0.0, Basophils (%) (Auto) 0.3, Neutrophils # (Auto) 19.1H, Lymphocytes # (Auto) 0.6L, Monocytes # (Auto) 1.7H, Eosinophils # (Auto) 0.0, Basophils # (Auto) 0.1, Nucleated Red Blood Cells % (auto) 0.0, Anion Gap 6L, Glomerular Filtration Rate 53.6, Lactic Acid Level 1.3, Calcium Level 9.2, Total Bilirubin 0.4, Direct Bilirubin 0.2, Aspartate Amino Transf (AST/SGOT) 18, Alanine Aminotransferase (ALT/SGPT) 20, Alkaline Phosphatase 205H, Total Protein 6.3L, Albumin 3.2, Albumin/Globulin Ratio 1.0, Lipase 45L 10/19/20 23:40: Coronavirus (COVID-19)(PCR) NEGATIVE, Influenza Type A (RT-PCR) NEGATIVE, Influenza Type B (RT-PCR) NEGATIVE, Respiratory Syncytial Virus (PCR) NEGATIVE 10/20/20 02:22: Urine Color YELLOW, Urine Appearance CLEAR, Urine pH 5.0, Urine Specific [place] 1.050, Urine Protein NEGATIVE, Urine Glucose (UA) NEGATIVE, Urine Ketones TRACEH, Urine Blood NEGATIVE, Urine Nitrite NEGATIVE, Urine Bilirubin NEGATIVE, Urine Urobilinogen 0.2, Urine Leukocyte Esterase NEGATIVE, Urine WBC (Auto) 0, Urine RBC (Auto) 1, Urine Hyaline Casts (Auto) 0, Urine Bacteria (Auto) NEGATIVE, Urine Squamous Epithelial Cells 0, Urine Sperm (Auto) 10/20/20 08:00: Bedside Glucose (Misc Panel) 72L 10/20/20 10:40: Immature Granulocyte % (Auto) 0.4, Neutrophils (%) (Auto) 77.1H, Lymphocytes (%) (Auto) 11.7L, Monocytes (%) (Auto) 10.2H, Eosinophils (%) (Auto) 0.1, Basophils (%) (Auto) 0.5, Neutrophils # (Auto) 9.8H, Lymphocytes # (Auto) 1.5, Monocytes # (Auto) 1.3H, Eosinophils # (Auto) 0.0, Basophils # (Auto) 0.1, Nucleated Red Blood Cells % (auto) 0.0, Anion Gap 5L, Glomerular Filtration Rate 52.3, Calcium Level 8.7L, Total Bilirubin 0.2, Aspartate Amino Transf (AST/SGOT) 18, Alanine Aminotransferase (ALT/SGPT) 17, Alkaline Phosphatase 170H, Total Protein 5.5L, Albumin 2.8L, Albumin/Globulin Ratio 1.0 10/20/20 11:46: Bedside Glucose (Misc Panel) 104 CBC/BMP Laboratory Tests 10/19/20 20:28 10/20/20 10:40 FSBS Laboratory Tests Test 10/20/20 08:00 10/20/20 11:46 Range/Units Bedside Glucose (Misc Panel) 72 104 83-110 MG/DL Microbiology Microbiology 10/20/20 Gastrointestinal Tract Panel (PCR) - Final, Complete Clostridium Difficile A/B 10/19/20 Blood Culture, Received Pending 10/19/20 Blood Culture, Received Pending Discharge Medications Scheduled Amlodipine Besylate (Amlodipine Besylate) 2.5 Mg Tablet, 2.5 MG PO DAILY, (Reported) Ascorbic Acid (Vitamin C) 500 Mg Tablet, 500 MG PO BID, (Reported) Aspirin (Aspirin EC) 81 Mg Tablet.dr, 81 MG PO DAILY, (Reported) Atorvastatin Calcium (Atorvastatin Calcium) 80 Mg Tab, 80 MG PO QHS, (Reported) Cholecalciferol (Vitamin D3) (Vitamin D3) 1,000 Unit Tablet, 1,000 UNITS PO DAILY, (Reported) Clopidogrel Bisulfate (Clopidogrel) 75 Mg Tab, 75 MG PO QHS, (Reported) Ferrous Sulfate (Iron) 325 Mg Tablet, 65 MG PO DAILY, (Reported) Fidaxomicin (Dificid) 200 Mg Tablet, 200 MG PO BID Finasteride (Finasteride) 5 Mg Tablet, 5 MG PO DAILY, (Reported) Gluc Sams/Chondro Sams A/Vit C/Mn (Glucosamine Chondroitin Tab) 1 Each Tablet, 2 TAB PO DAILY, (Reported) L.acidoph/L.bulg/B.bif/S.therm (Rajani-Bid Caplet) 1 Each Tablet, 1 EA PO DAILY Metformin HCl (Metformin HCl) 500 Mg Tab, 500 MG PO BID, (Reported) Mirtazapine (Remeron) 30 Mg Tablet, 30 MG PO QHS, (Reported) Multivitamins (Thera M Plus Tablet) 1 Each Tablet, 1 TAB PO DAILY, (Reported) Omeprazole (Omeprazole) 20 Mg Capsule.dr, 20 MG PO DAILY, (Reported) Potassium Chloride (Potassium Chloride) 10 Meq Tablet.er, 10 MEQ PO DAILY, (Reported) Verapamil HCl (Verapamil Sr) 120 Mg Cap24h.pel, 120 MG PO DAILY, (Reported) Allergies Coded Allergies: promethazine (Verified Adverse Reaction, Intermediate, Anxiety, rage, 12/30/19) KEV STOKES MD Oct 20, 2020 14:25
[2020-10-20] MEDS ORDERED: HumaLOG INSULIN (NovoLOG) PER UNIT SC SCH (21:00)
== END 2020-10-20 14:30 | disposition home or self-care (01) | DRG 372 ==
LOC: EDBD 18:47 → M ED 18:47 → M ED INP 18:48 → M MSPAV 10-20 01:40
PROVIDERS: ADMIT Family Medicine; ATTEND Internal Medicine
DX: A04.71 Enterocolitis due to Clostridium difficile, recurrent (principal); N17.9 Acute kidney failure, unspecified; I25.10 Atherosclerotic heart disease of native coronary artery without angina pectoris; I10 Essential (primary) hypertension; D50.9 Iron deficiency anemia, unspecified; M81.0 Age-related osteoporosis without current pathological fracture; K76.0 Fatty (change of) liver, not elsewhere classified; I25.2 Old myocardial infarction; E11.9 Type 2 diabetes mellitus without complications; G47.33 Obstructive sleep apnea (adult) (pediatric); Z90.2 Acquired absence of lung [part of]; Z87.891 Personal history of nicotine dependence; C44.42 Squamous cell carcinoma of skin of scalp and neck; Z85.118 Personal history of other malignant neoplasm of bronchus and lung; Z95.5 Presence of coronary angioplasty implant and graft; Z79.82 Long term (current) use of aspirin; Z79.84 Long term (current) use of oral hypoglycemic drugs; Z79.899 Other long term (current) drug therapy; Z88.8 Allergy status to other drugs, medicaments and biological substances

== ENCOUNTER → 2020-11-15 | Outpatient (CLI) | payer MEDICARE, BC ==
[~2020-11-15] MED LIST changes: +FERR325T81 PO; +FIDA200TA PO; +Iron PO; +LIDOCAINE 1% MDV 20ML VIAL As Ordered ONE; +OMEP-218 PO; +RISATAB3 PO
[2020-11-15 09:32] LABS: BASO # 0.1 10^3/uL (0.0-0.2); EOS # 0.1 10^3/uL (0.0-0.5); EOS % 1.3 % (0.0-3.0); LYMPH # 1.3 10^3/uL (1.5-5.0); LYMPH % 11.3 % (24.0-44.0); MEAN CORPUSCULAR HEMOGLOBIN 33.1 pg (27.0-33.0); MEAN CORPUSCULAR HGB CONC 31.6 g/dl (32.0-36.5); MONO # 0.9 10^3/uL (0.0-0.8); MONO % 8.1 % (2.0-8.0); NEUTROPHILS # 8.7 10^3/uL (1.5-8.5); NEUTROPHILS % 77.9 % (36.0-66.0); PLATELET COUNT, AUTOMATED 501 10^3/uL (150-450); RED BLOOD COUNT 3.62 10^6/uL (4.30-6.10); WHITE BLOOD COUNT 11.1 10^3/uL (4.0-10.0)
[2020-11-15 10:52] VITALS: BP 140/68
--- NOTE | 2020-11-21 15:38 | REP ---
INDICATION: ANEMIA. COMPARISON: None. TECHNIQUE: Procedure was performed under the direct supervision of Dr. Schwab. The risks and benefits of the procedure were explained to the patient and informed consent was obtained. The right iliac bone was localized using CT guidance. The skin was prepped and draped in a sterile fashion. 10 mL of 1% lidocaine was used as a local anesthetic. Using CT guidance, an 11 gauge bone marrow biopsy system was inserted and 10 mL of marrow fluid was withdrawn. One core sample was then obtained. Estimated blood loss: Less than 1 mL The patient tolerated the procedure well and there were no immediate complications. After the appropriate amount to monitor convalescence the patient was discharged from the department. FINDINGS: None IMPRESSION: CT-guided right iliac bone marrow biopsy. <Electronically signed by Mateusz Prakash > 11/15/20 1518 <Electronically signed by Bishop Schwab > 11/21/20 1538
== END ==
LOC: M IRPRO 08:53
PROVIDERS: ATTEND Internal Medicine Medical Oncology
DX: D47.3 Essential (hemorrhagic) thrombocythemia (principal)

== ENCOUNTER → 2021-02-19 | Outpatient (REF) | payer MEDICARE, BC ==
[~2021-02-19] MED LIST changes: +BENE1POW5 PO; -LIDOCAINE 1% MDV 20ML VIAL As Ordered ONE; +MIRT1TAB17 PO
[2021-02-19 17:39] LABS: BLOOD UREA NITROGEN 16 MG/DL (7-18); CALCIUM LEVEL 9.6 MG/DL (8.8-10.2); CARBON DIOXIDE LEVEL 29 MEQ/L (21-32); CHLORIDE LEVEL 105 MEQ/L (98-107); CREATININE FOR GFR 1.11 MG/DL (0.70-1.30); GLOMERULAR FILTRATION RATE > 60.0 (>42); GLUCOSE, FASTING 120 MG/DL (70-100); MAGNESIUM LEVEL 2.2 MG/DL (1.8-2.4); POTASSIUM SERUM 4.9 MEQ/L (3.5-5.1); SODIUM LEVEL 139 MEQ/L (136-145)
== END ==
LOC: M LABDRAWC 16:04
DX: I21.4 Non-ST elevation (NSTEMI) myocardial infarction (principal)

== ENCOUNTER → 2021-06-14 | Outpatient (REF) | payer MEDICARE, BC ==
[~2021-06-14] MED LIST changes: +CARV6.25 PO; -D31000TA2 PO; +NITR4TASL SL; +OMEP-173 PO; -OMEP-218 PO; -POTA10TA14 PO; +POTA1TAB24 PO; +VITA100093 PO
[2021-06-14 17:57] LABS: HEMOGLOBIN A1c 5.4 %
== END ==
LOC: M SFHCCLAY 13:37
PROVIDERS: ATTEND Family Medicine
DX: E11.9 Type 2 diabetes mellitus without complications (principal)

== ENCOUNTER → 2021-09-11 | Outpatient (REF) | payer MEDICARE, BC ==
[~2021-09-11] MED LIST changes: -GLUCTAB6 PO; +GLUCTAB7 PO
[2021-09-11 11:42] LABS: BASO # 0.1 10^3/uL (0.0-0.2); EOS # 0.4 10^3/uL (0.0-0.5); EOS % 3.9 % (0.0-3.0); HEMOGLOBIN 12.5 g/dl (13.5-17.5); LYMPH # 1.9 10^3/uL (1.5-5.0); MEAN CORPUSCULAR HEMOGLOBIN 32.3 pg (27.0-33.0); MEAN CORPUSCULAR HGB CONC 32.9 g/dl (32.0-36.5); MEAN CORPUSCULAR VOLUME 98.2 fl (80.0-96.0); MONO # 0.8 10^3/uL (0.0-0.8); MONO % 8.6 % (2.0-8.0); NEUTROPHILS # 6.6 10^3/uL (1.5-8.5); NEUTROPHILS % 67.2 % (36.0-66.0); PLATELET COUNT, AUTOMATED 359 10^3/uL (150-450); RED BLOOD COUNT 3.87 10^6/uL (4.30-6.10); WHITE BLOOD COUNT 9.8 10^3/uL (4.0-10.0)
[2021-09-11 12:17] LABS: ALBUMIN 3.5 GM/DL (3.2-5.2); ALT/SGPT 16 U/L (12-78); BILIRUBIN,TOTAL 0.2 MG/DL (0.2-1.0); BLOOD UREA NITROGEN 22 MG/DL (7-18); CALCIUM LEVEL 9.2 MG/DL (8.8-10.2); CARBON DIOXIDE LEVEL 28 MEQ/L (21-32); CHLORIDE LEVEL 106 MEQ/L (98-107); CREATININE FOR GFR 1.16 MG/DL (0.70-1.30); FERRITIN 31 NG/ML (26-388); GLOMERULAR FILTRATION RATE > 60.0 (>42); GLUCOSE, FASTING 100 MG/DL (70-100); IRON (FE) 55 UG/DL (65-175); PERCENT SATURATION 10.3 % (19.7-50.0); POTASSIUM SERUM 4.3 MEQ/L (3.5-5.1); SODIUM LEVEL 141 MEQ/L (136-145); TOTAL IRON BINDING CAPACITY 534 UG/DL (250-450); TOTAL PROTEIN 6.4 GM/DL (6.4-8.2)
== END ==
LOC: M LABDRAWC 11:18
PROVIDERS: ATTEND Internal Medicine Medical Oncology
DX: C44.622 Squamous cell carcinoma of skin of right upper limb, including shoulder (principal); C44.629 Squamous cell carcinoma of skin of left upper limb, including shoulder; C44.42 Squamous cell carcinoma of skin of scalp and neck; C44.529 Squamous cell carcinoma of skin of other part of trunk

== ENCOUNTER → 2021-11-16 | Outpatient (CLI) | payer MEDICARE, BC ==
[~2021-11-16] MED LIST changes: +INDA1.253 PO; -INDA125TA PO
== END ==
LOC: M PLAIMG 11:11
PROVIDERS: ATTEND Family Medicine
DX: C34.92 Malignant neoplasm of unspecified part of left bronchus or lung (principal); J44.9 Chronic obstructive pulmonary disease, unspecified; Z95.1 Presence of aortocoronary bypass graft

== ENCOUNTER → 2021-11-20 | Outpatient (CLI) | payer MEDICARE, BC ==
[2021-11-20 15:46] LABS: BASO # 0.1 10^3/uL (0.0-0.2); BASO % 0.9 % (0.0-1.0); EOS # 0.3 10^3/uL (0.0-0.5); EOS % 3.4 % (0.0-3.0); HEMATOCRIT 37.7 % (42.0-52.0); LYMPH # 1.3 10^3/uL (1.5-5.0); LYMPH % 12.7 % (24.0-44.0); MEAN CORPUSCULAR HEMOGLOBIN 30.2 pg (27.0-33.0); MEAN CORPUSCULAR HGB CONC 31.8 g/dl (32.0-36.5); MEAN CORPUSCULAR VOLUME 94.7 fl (80.0-96.0); MONO # 1.4 10^3/uL (0.0-0.8); MONO % 14.5 % (2.0-8.0); NEUTROPHILS # 6.8 10^3/uL (1.5-8.5); NEUTROPHILS % 68.1 % (36.0-66.0); PLATELET COUNT, AUTOMATED 589 10^3/uL (150-450); RED BLOOD COUNT 3.98 10^6/uL (4.30-6.10); WHITE BLOOD COUNT 9.9 10^3/uL (4.0-10.0)
[2021-11-20 16:28] LABS: ALBUMIN 3.2 GM/DL (3.2-5.2); BILIRUBIN,TOTAL 0.5 MG/DL (0.2-1.0); CALCIUM LEVEL 9.6 MG/DL (8.8-10.2); CREATININE FOR GFR 1.32 MG/DL (0.70-1.30); GLOMERULAR FILTRATION RATE 55.8 (>42); POTASSIUM SERUM 5.2 MEQ/L (3.5-5.1); TOTAL PROTEIN 6.8 GM/DL (6.4-8.2)
== END ==
LOC: M LAB 14:20
PROVIDERS: ATTEND Internal Medicine Medical Oncology
DX: C44.622 Squamous cell carcinoma of skin of right upper limb, including shoulder (principal); C44.629 Squamous cell carcinoma of skin of left upper limb, including shoulder; C44.42 Squamous cell carcinoma of skin of scalp and neck; C44.529 Squamous cell carcinoma of skin of other part of trunk

== ENCOUNTER → 2021-12-13 | Outpatient (REF) | payer MEDICARE, BC ==
[2021-12-13 11:46] LABS: BASO # 0.1 10^3/uL (0.0-0.2); EOS # 0.3 10^3/uL (0.0-0.5); EOS % 4.3 % (0.0-3.0); HEMATOCRIT 36.8 % (42.0-52.0); HEMOGLOBIN 11.2 g/dl (13.5-17.5); LYMPH # 1.6 10^3/uL (1.5-5.0); MEAN CORPUSCULAR HEMOGLOBIN 31.1 pg (27.0-33.0); MEAN CORPUSCULAR HGB CONC 30.4 g/dl (32.0-36.5); MEAN CORPUSCULAR VOLUME 102.2 fl (80.0-96.0); MONO % 12.4 % (2.0-8.0); NEUTROPHILS # 4.7 10^3/uL (1.5-8.5); NEUTROPHILS % 60.9 % (36.0-66.0); PLATELET COUNT, AUTOMATED 396 10^3/uL (150-450); WHITE BLOOD COUNT 7.7 10^3/uL (4.0-10.0)
[2021-12-13 12:06] LABS: PROTHROMBIN TIME 13.6 SECONDS (12.7-14.5)
[2021-12-13 12:20] LABS: BLOOD UREA NITROGEN 18 MG/DL (7-18); CARBON DIOXIDE LEVEL 29 MEQ/L (21-32); CHLORIDE LEVEL 105 MEQ/L (98-107); CREATININE FOR GFR 1.23 MG/DL (0.70-1.30); GLOMERULAR FILTRATION RATE > 60.0 (>42); GLUCOSE, FASTING 92 MG/DL (70-100); POTASSIUM SERUM 4.5 MEQ/L (3.5-5.1); SODIUM LEVEL 139 MEQ/L (136-145)
[2021-12-13 12:21] LABS: ALBUMIN 3.1 GM/DL (3.2-5.2); ALT/SGPT 26 U/L (12-78); BILIRUBIN,TOTAL 0.3 MG/DL (0.2-1.0); CALCIUM LEVEL 9.2 MG/DL (8.8-10.2); TOTAL PROTEIN 6.4 GM/DL (6.4-8.2)
== END ==
LOC: M LABDRAWC 11:08
DX: C34.10 Malignant neoplasm of upper lobe, unspecified bronchus or lung (principal)

== ENCOUNTER → 2021-12-25 | Outpatient (REF) | payer MEDICARE, BC ==
[~2021-12-25] MED LIST changes: +PANT40TA29
[2021-12-25 11:55] LABS: BASO # 0.1 10^3/uL (0.0-0.2); BASO % 1.2 % (0.0-1.0); EOS # 0.3 10^3/uL (0.0-0.5); EOS % 3.1 % (0.0-3.0); HEMATOCRIT 37.9 % (42.0-52.0); HEMOGLOBIN 11.7 g/dl (13.5-17.5); LYMPH # 1.8 10^3/uL (1.5-5.0); LYMPH % 20.5 % (24.0-44.0); MEAN CORPUSCULAR HEMOGLOBIN 32.2 pg (27.0-33.0); MEAN CORPUSCULAR HGB CONC 30.9 g/dl (32.0-36.5); MEAN CORPUSCULAR VOLUME 104.4 fl (80.0-96.0); NEUTROPHILS # 5.7 10^3/uL (1.5-8.5); NEUTROPHILS % 63.9 % (36.0-66.0); PLATELET COUNT, AUTOMATED 400 10^3/uL (150-450); RED BLOOD COUNT 3.63 10^6/uL (4.30-6.10); WHITE BLOOD COUNT 8.9 10^3/uL (4.0-10.0)
[2021-12-25 12:24] LABS: ALBUMIN 3.2 GM/DL (3.2-5.2); ALT/SGPT 25 U/L (12-78); BILIRUBIN,TOTAL 0.4 MG/DL (0.2-1.0); BLOOD UREA NITROGEN 21 MG/DL (7-18); CALCIUM LEVEL 8.8 MG/DL (8.8-10.2); CARBON DIOXIDE LEVEL 30 MEQ/L (21-32); CHLORIDE LEVEL 110 MEQ/L (98-107); CREATININE FOR GFR 1.15 MG/DL (0.70-1.30); FERRITIN 512 NG/ML (26-388); GLOMERULAR FILTRATION RATE > 60.0 (>42); GLUCOSE, FASTING 121 MG/DL (70-100); POTASSIUM SERUM 4.7 MEQ/L (3.5-5.1); SODIUM LEVEL 143 MEQ/L (136-145); TOTAL PROTEIN 6.4 GM/DL (6.4-8.2)
[2021-12-25 12:52] LABS: VITAMIN B12 LEVEL 981 PG/ML (247-911)
== END ==
LOC: M LABDRAWC 11:12
PROVIDERS: ATTEND Internal Medicine Medical Oncology
DX: Z79.82 Long term (current) use of aspirin (principal); Z79.899 Other long term (current) drug therapy; Z79.84 Long term (current) use of oral hypoglycemic drugs

== ENCOUNTER → 2021-12-31 | Outpatient (CLI) | payer MEDICARE, BC ==
[~2021-12-31] MED LIST changes: +E-Z-GAS II EFFERVESCENT PACKET (SODIUM BICARB./CITRIC ACID/SIMETHICONE) As Ordered ONE; +E-Z-HD 98% w/w 340GM SUSP BTL As Ordered ONE; +E-Z-PAQUE 96% w/w SUSP 176GM BTL As Ordered ONE
== END ==
LOC: M RAD 08:30
PROVIDERS: ATTEND Internal Medicine Gastroenterology
DX: R13.10 Dysphagia, unspecified (principal); K21.9 Gastro-esophageal reflux disease without esophagitis

== ENCOUNTER → 2022-01-15 | Outpatient (REF) | payer MEDICARE, BC ==
[~2022-01-15] MED LIST changes: -E-Z-GAS II EFFERVESCENT PACKET (SODIUM BICARB./CITRIC ACID/SIMETHICONE) As Ordered ONE; -E-Z-HD 98% w/w 340GM SUSP BTL As Ordered ONE; -E-Z-PAQUE 96% w/w SUSP 176GM BTL As Ordered ONE
[2022-01-15 12:24] LABS: BASO # 0.1 10^3/uL (0.0-0.2); BASO % 1.3 % (0.0-1.0); EOS # 0.3 10^3/uL (0.0-0.5); EOS % 3.7 % (0.0-3.0); HEMATOCRIT 39.2 % (42.0-52.0); HEMOGLOBIN 12.2 g/dl (13.5-17.5); LYMPH # 1.6 10^3/uL (1.5-5.0); LYMPH % 20.6 % (24.0-44.0); MEAN CORPUSCULAR HEMOGLOBIN 32.4 pg (27.0-33.0); MEAN CORPUSCULAR HGB CONC 31.1 g/dl (32.0-36.5); MONO # 0.9 10^3/uL (0.0-0.8); NEUTROPHILS # 4.7 10^3/uL (1.5-8.5); NEUTROPHILS % 62.1 % (36.0-66.0); PLATELET COUNT, AUTOMATED 350 10^3/uL (150-450); RED BLOOD COUNT 3.77 10^6/uL (4.30-6.10); WHITE BLOOD COUNT 7.5 10^3/uL (4.0-10.0)
[2022-01-15 13:28] LABS: ERYTHROCYTE SEDIMENTATION RATE 17 mm/hr (0-20)
== END ==
LOC: M LABDRAWC 11:13
PROVIDERS: ATTEND Optometrist
DX: G45.9 Transient cerebral ischemic attack, unspecified (principal)

== ENCOUNTER → 2022-03-27 | Outpatient (REF) | payer MEDICARE, BC ==
[2022-03-27 18:08] LABS: BASO # 0.1 10^3/uL (0.0-0.2); BASO % 0.7 % (0.0-1.0); EOS # 0.3 10^3/uL (0.0-0.5); EOS % 2.2 % (0.0-3.0); HEMATOCRIT 36.3 % (42.0-52.0); HEMOGLOBIN 11.3 g/dl (13.5-17.5); LYMPH # 1.5 10^3/uL (1.5-5.0); LYMPH % 11.8 % (24.0-44.0); MEAN CORPUSCULAR HEMOGLOBIN 32.2 pg (27.0-33.0); MEAN CORPUSCULAR HGB CONC 31.1 g/dl (32.0-36.5); MEAN CORPUSCULAR VOLUME 103.4 fl (80.0-96.0); MONO # 1.2 10^3/uL (0.0-0.8); MONO % 9.7 % (2.0-8.0); NEUTROPHILS # 9.4 10^3/uL (1.5-8.5); NEUTROPHILS % 75.3 % (36.0-66.0); PLATELET COUNT, AUTOMATED 451 10^3/uL (150-450); RED BLOOD COUNT 3.51 10^6/uL (4.30-6.10); WHITE BLOOD COUNT 12.5 10^3/uL (4.0-10.0)
[2022-03-27 18:36] LABS: FERRITIN 26.8 NG/ML (10.5-307.3); FOLATE 18.6 NG/ML (>5.4)
[2022-03-27 18:37] LABS: IRON (FE) 48 UG/DL (65-175); PERCENT SATURATION 13.5 % (19.7-50.0); TOTAL IRON BINDING CAPACITY 355 UG/DL (250-425); VITAMIN B12 LEVEL 579 PG/ML (211-911)
[2022-03-27 18:38] LABS: ALBUMIN 3.8 G/DL (3.2-5.2); ALKALINE PHOSPHATASE 144 U/L (46-116); ALT/SGPT 24 U/L (7.0-40); AST/SGOT 22 U/L (<34); BILIRUBIN,TOTAL 0.2 MG/DL (0.3-1.2); BLOOD UREA NITROGEN 24 MG/DL (9-23); CALCIUM LEVEL 9.4 MG/DL (8.3-10.6); CARBON DIOXIDE LEVEL 28 MMOL/L (20-31); CHLORIDE LEVEL 106 MMOL/L (98-107); CREATININE FOR GFR 1.22 MG/DL (0.70-1.30); GLOMERULAR FILTRATION RATE > 60.0 (>42); GLUCOSE, FASTING 112 MG/DL (74-106); POTASSIUM SERUM 4.9 MMOL/L (3.5-5.1); SODIUM LEVEL 141 MMOL/L (136-145); TOTAL PROTEIN 6.6 G/DL (5.7-8.2)
== END ==
LOC: M LABDRAWC 16:59
PROVIDERS: ATTEND Internal Medicine Medical Oncology
DX: D50.9 Iron deficiency anemia, unspecified (principal)

== ENCOUNTER → 2022-03-27 | Outpatient (REF) | payer MEDICARE, BC ==
[2022-03-27 18:20] LABS: HEMOGLOBIN A1c 5.6 % (4.0-6.0)
== END ==
LOC: M SFHCCLAY 09:43
PROVIDERS: ATTEND Family Medicine
DX: E11.9 Type 2 diabetes mellitus without complications (principal)

== ENCOUNTER → 2022-05-29 | Outpatient (REF) | payer MEDICARE, BC ==
[2022-05-29 17:22] LABS: APPEARANCE, URINE CLOUDY (CLEAR); BACTERIA, URINE AUTO 1+ (NEGATIVE); BILIRUBIN, URINE AUTO NEGATIVE (NEGATIVE); BLOOD, URINE BLOOD NEGATIVE (NEGATIVE); CALCIUM OXALATE CRYSTALS SMALL; COLOR, URINE YELLOW (YELLOW); GLUCOSE, URINE (UA) AUTO NEGATIVE (NEGATIVE); KETONE, URINE AUTO NEGATIVE (NEGATIVE); LEUKOCYTE ESTERASE, URINE AUTO 3+ (NEGATIVE); MUCUS, URINE SMALL (NEGATIVE); NITRITE, URINE AUTO NEGATIVE (NEGATIVE); PROTEIN, URINE AUTO NEGATIVE (NEGATIVE); RBC, URINE AUTO 8 /HPF (0-3); SPECIFIC GRAVITY URINE AUTO 1.016 (1.002-1.035); SQUAMOUS EPITHELIAL CELL UR AU 0 /HPF (0-6); UROBILINOGEN, URINE AUTO 0.2 mg/dL (0.0-2.0); WBC, URINE AUTO TNTC /HPF (0-3)
[2022-05-29 18:15] LABS: BASO # 0.1 10^3/uL (0.0-0.2); BASO % 1.1 % (0.0-1.0); EOS # 0.3 10^3/uL (0.0-0.5); HEMATOCRIT 22.2 % (42.0-52.0); LYMPH # 1.5 10^3/uL (1.5-5.0); LYMPH % 17.8 % (24.0-44.0); MEAN CORPUSCULAR HEMOGLOBIN 26.4 pg (27.0-33.0); MEAN CORPUSCULAR HGB CONC 28.8 g/dl (32.0-36.5); MEAN CORPUSCULAR VOLUME 91.7 fl (80.0-96.0); MONO # 0.8 10^3/uL (0.0-0.8); NEUTROPHILS # 5.6 10^3/uL (1.5-8.5); NEUTROPHILS % 67.9 % (36.0-66.0); PLATELET COUNT, AUTOMATED 500 10^3/uL (150-450); RED BLOOD COUNT 2.42 10^6/uL (4.30-6.10); WHITE BLOOD COUNT 8.2 10^3/uL (4.0-10.0)
[2022-05-29 18:16] LABS: TOTAL IRON BINDING CAPACITY 377 UG/DL (250-425)
[2022-05-29 18:17] LABS: IRON (FE) 10 UG/DL (65-175); PERCENT SATURATION 2.7 % (19.7-50.0)
[2022-05-29 18:21] LABS: CREATININE, URINE 103.7 MG/DL; MAU/CREAT RATIO 16.3 MCG/MG (0.0-30.0)
[2022-05-29 18:25] LABS: ALBUMIN 3.6 G/DL (3.2-5.2); ALKALINE PHOSPHATASE 117 U/L (46-116); ALT/SGPT 16 U/L (7.0-40); AST/SGOT 14 U/L (<34); BILIRUBIN,TOTAL 0.3 MG/DL (0.3-1.2); BLOOD UREA NITROGEN 19 MG/DL (9-23); CARBON DIOXIDE LEVEL 26 MMOL/L (20-31); CHLORIDE LEVEL 107 MMOL/L (98-107); CHOLESTEROL LEVEL 117 MG/DL (<200); CHOLESTEROL RISK RATIO 3.21 (<5); CREATININE FOR GFR 1.24 MG/DL (0.70-1.30); FOLATE 20.28 NG/ML (>5.4); GLOMERULAR FILTRATION RATE 59.9 (>42); GLUCOSE, FASTING 100 MG/DL (74-106); HDL CHOLESTEROL 36.4 MG/DL (>40); LDL CHOLESTEROL 63.6 MG/DL (<100); NON-HDL-C 80.6 MG/DL; POTASSIUM SERUM 4.7 MMOL/L (3.5-5.1); SODIUM LEVEL 141 MMOL/L (136-145); TOTAL PROTEIN 6.1 G/DL (5.7-8.2); TRIGLYCERIDES LEVEL 85 MG/DL (<150)
[2022-05-29 18:30] LABS: VITAMIN B12 LEVEL > 2000 PG/ML (211-911)
[2022-05-29 19:22] LABS: HEMOGLOBIN 6.4 g/dl (13.5-17.5)
[2022-05-29 19:53] LABS: HEMOGLOBIN A1c 5.5 % (4.0-6.0)
== END ==
LOC: M SFHCCLAY 09:44
PROVIDERS: ATTEND Family Medicine
DX: R06.09 Other forms of dyspnea (principal); E11.9 Type 2 diabetes mellitus without complications; D50.9 Iron deficiency anemia, unspecified; J44.9 Chronic obstructive pulmonary disease, unspecified; C34.92 Malignant neoplasm of unspecified part of left bronchus or lung; Z95.5 Presence of coronary angioplasty implant and graft; Z79.899 Other long term (current) drug therapy

== ENCOUNTER 2022-05-30 10:16 | Outpatient (CLI) | payer MEDICARE, BC ==
[~2022-05-30] VITALS: Ht 172.7 cm; Wt 72.7 kg
[2022-05-30 10:49] VITALS: BP 166/71
[2022-05-30] MEDS ORDERED: ACETAMINOPHEN TAB 650MG DOSE (2X325MG) PO ONE (11:00)
[2022-05-30] MEDS ORDERED: diphenhydrAMINE 50MG CAP PO ONE (11:00)
[2022-05-30 12:23] VITALS: BP 166/71
[2022-05-30 12:40] VITALS: BP 108/55
[2022-05-30 13:40] VITALS: BP 131/60
[2022-05-30 14:30] VITALS: BP 160/75
[2022-05-30 15:50] VITALS: BP 166/79
== END 2022-05-30 16:05 | disposition home or self-care (01) ==
LOC: M INFU 10:16
PROVIDERS: ATTEND Family Medicine
DX: D50.9 Iron deficiency anemia, unspecified (principal); Z88.8 Allergy status to other drugs, medicaments and biological substances
CPT/HCPCS: 36430; 86850; 86900; 86901; 86920; P9016

== ENCOUNTER → 2022-05-30 | Outpatient (REF) | payer MEDICARE, BC | LOC: M SFHCCLAY 14:50 | PROVIDERS: ATTEND Family Medicine | DX: N30.00 Acute cystitis without hematuria (principal) ==

== ENCOUNTER → 2022-06-05 | Outpatient (CLI) | payer MEDICARE, BC | LOC: M PLAIMG 10:18 | PROVIDERS: ATTEND Family Medicine | DX: M48.062 Spinal stenosis, lumbar region with neurogenic claudication (principal); C34.92 Malignant neoplasm of unspecified part of left bronchus or lung; M51.26 Other intervertebral disc displacement, lumbar region; M51.27 Other intervertebral disc displacement, lumbosacral region; M47.815 Spondylosis without myelopathy or radiculopathy, thoracolumbar region ==

== ENCOUNTER → 2022-06-06 | Outpatient (REF) | payer MEDICARE, BC ==
[2022-06-06 17:20] LABS: BASO # 0.1 10^3/uL (0.0-0.2); BASO % 1.5 % (0.0-1.0); EOS # 0.3 10^3/uL (0.0-0.5); EOS % 3.8 % (0.0-3.0); HEMATOCRIT 31.7 % (42.0-52.0); HEMOGLOBIN 9.4 g/dl (13.5-17.5); LYMPH # 1.7 10^3/uL (1.5-5.0); LYMPH % 18.7 % (24.0-44.0); MEAN CORPUSCULAR HEMOGLOBIN 26.3 pg (27.0-33.0); MEAN CORPUSCULAR HGB CONC 29.7 g/dl (32.0-36.5); MEAN CORPUSCULAR VOLUME 88.5 fl (80.0-96.0); MONO # 0.9 10^3/uL (0.0-0.8); MONO % 9.7 % (2.0-8.0); NEUTROPHILS # 5.9 10^3/uL (1.5-8.5); NEUTROPHILS % 66.1 % (36.0-66.0); PLATELET COUNT, AUTOMATED 418 10^3/uL (150-450); RED BLOOD COUNT 3.58 10^6/uL (4.30-6.10); WHITE BLOOD COUNT 8.9 10^3/uL (4.0-10.0)
== END ==
LOC: M SFHCCLAY 09:50
PROVIDERS: ATTEND Family Medicine
DX: D50.0 Iron deficiency anemia secondary to blood loss (chronic) (principal)

== ENCOUNTER 2022-06-14 10:20 | Outpatient (CLI) | payer MEDICARE, BC ==
[~2022-06-14] VITALS: Ht 172.7 cm; Wt 72.7 kg
[2022-06-14 10:20] VITALS: BP 177/74
[2022-06-14] MEDS ORDERED: IRON SUCROSE 25 MG in NS 23.75 ML IV ONE (10:30)
[2022-06-14] MEDS ORDERED: IRON SUCROSE 475 MG in NS 250 ML IV ONE (10:30)
[2022-06-14 11:02] LABS: HEMATOCRIT 29.9 % (42.0-52.0); HEMOGLOBIN 8.6 g/dl (13.5-17.5); MEAN CORPUSCULAR HEMOGLOBIN 26.3 pg (27.0-33.0); MEAN CORPUSCULAR HGB CONC 28.8 g/dl (32.0-36.5); MEAN CORPUSCULAR VOLUME 91.4 fl (80.0-96.0); PLATELET COUNT, AUTOMATED 473 10^3/uL (150-450); RED BLOOD COUNT 3.27 10^6/uL (4.30-6.10); WHITE BLOOD COUNT 8.6 10^3/uL (4.0-10.0)
[2022-06-14] MEDS ORDERED: IRON SUCROSE 500 MG in NS 250 ML OVER 4 HRS IV ONE (12:00)
[2022-06-14 12:41] VITALS: BP 139/65
[2022-06-14 16:35] VITALS: BP 166/73
== END 2022-06-14 16:35 | disposition home or self-care (01) ==
LOC: M INFU 10:20
PROVIDERS: ATTEND Family Medicine
DX: D50.9 Iron deficiency anemia, unspecified (principal); Z88.8 Allergy status to other drugs, medicaments and biological substances
CPT/HCPCS: 36592; 85027; 96365; 96366; J1756

== ENCOUNTER → 2022-06-18 | Outpatient (CLI) | payer MEDICARE, BC | LOC: M RAD 11:51 | PROVIDERS: ATTEND Family Medicine | DX: C34.32 Malignant neoplasm of lower lobe, left bronchus or lung (principal); I70.0 Atherosclerosis of aorta; I25.10 Atherosclerotic heart disease of native coronary artery without angina pectoris ==

== ENCOUNTER → 2022-06-20 | Outpatient (REF) | payer MEDICARE, BC ==
[2022-06-20 12:02] LABS: HEMATOCRIT 30.1 % (42.0-52.0); HEMOGLOBIN 8.9 g/dl (13.5-17.5); MEAN CORPUSCULAR HEMOGLOBIN 27.8 pg (27.0-33.0); MEAN CORPUSCULAR HGB CONC 29.6 g/dl (32.0-36.5); MEAN CORPUSCULAR VOLUME 94.1 fl (80.0-96.0); PLATELET COUNT, AUTOMATED 507 10^3/uL (150-450)
== END ==
LOC: M SFHCCLAY 09:30
PROVIDERS: ATTEND Family Medicine
DX: D50.9 Iron deficiency anemia, unspecified (principal)

== ENCOUNTER → 2022-07-01 | Outpatient (REF) | payer MEDICARE, BC ==
[2022-07-01 20:02] LABS: BLOOD UREA NITROGEN 17 MG/DL (9-23); CALCIUM LEVEL 8.8 MG/DL (8.3-10.6); CARBON DIOXIDE LEVEL 27 MMOL/L (20-31); CHLORIDE LEVEL 108 MMOL/L (98-107); CREATININE FOR GFR 1.14 MG/DL (0.70-1.30); GLOMERULAR FILTRATION RATE > 60.0 (>42); GLUCOSE, FASTING 99 MG/DL (74-106); POTASSIUM SERUM 4.9 MMOL/L (3.5-5.1); SODIUM LEVEL 140 MMOL/L (136-145)
== END ==
LOC: M LAB REF 19:42
PROVIDERS: ATTEND Internal Medicine Gastroenterology
DX: E11.9 Type 2 diabetes mellitus without complications (principal)

== ENCOUNTER → 2022-07-01 | Outpatient (REF) | payer MEDICARE, BC ==
[2022-07-01 19:50] LABS: BASO # 0.1 10^3/uL (0.0-0.2); EOS # 0.3 10^3/uL (0.0-0.5); EOS % 3.1 % (0.0-3.0); HEMATOCRIT 31.4 % (42.0-52.0); HEMOGLOBIN 9.1 g/dl (13.5-17.5); LYMPH # 1.4 10^3/uL (1.5-5.0); LYMPH % 17.6 % (24.0-44.0); MEAN CORPUSCULAR HEMOGLOBIN 28.1 pg (27.0-33.0); MEAN CORPUSCULAR VOLUME 96.9 fl (80.0-96.0); MONO # 0.7 10^3/uL (0.0-0.8); MONO % 9.1 % (2.0-8.0); NEUTROPHILS # 5.6 10^3/uL (1.5-8.5); NEUTROPHILS % 69.1 % (36.0-66.0); PLATELET COUNT, AUTOMATED 524 10^3/uL (150-450); RED BLOOD COUNT 3.24 10^6/uL (4.30-6.10); WHITE BLOOD COUNT 8.1 10^3/uL (4.0-10.0)
[2022-07-01 20:02] LABS: PERCENT SATURATION 5.9 % (19.7-50.0)
== END ==
LOC: M SFHCCLAY 10:58
PROVIDERS: ATTEND Family Medicine
DX: D50.0 Iron deficiency anemia secondary to blood loss (chronic) (principal); R06.09 Other forms of dyspnea; E11.9 Type 2 diabetes mellitus without complications; J44.9 Chronic obstructive pulmonary disease, unspecified; Z95.5 Presence of coronary angioplasty implant and graft

== ENCOUNTER → 2022-07-01 | Outpatient (REF) | payer MEDICARE, BC ==
[2022-07-01 19:58] LABS: BASO # 0.1 10^3/uL (0.0-0.2); BASO % 1.2 % (0.0-1.0); EOS # 0.3 10^3/uL (0.0-0.5); EOS % 3.4 % (0.0-3.0); HEMATOCRIT 31.2 % (42.0-52.0); HEMOGLOBIN 9.1 g/dl (13.5-17.5); LYMPH # 1.3 10^3/uL (1.5-5.0); LYMPH % 17.3 % (24.0-44.0); MEAN CORPUSCULAR HEMOGLOBIN 28.3 pg (27.0-33.0); MEAN CORPUSCULAR HGB CONC 29.2 g/dl (32.0-36.5); MEAN CORPUSCULAR VOLUME 96.9 fl (80.0-96.0); MONO # 0.7 10^3/uL (0.0-0.8); MONO % 8.5 % (2.0-8.0); NEUTROPHILS # 5.4 10^3/uL (1.5-8.5); NEUTROPHILS % 69.5 % (36.0-66.0); PLATELET COUNT, AUTOMATED 508 10^3/uL (150-450); RED BLOOD COUNT 3.22 10^6/uL (4.30-6.10); WHITE BLOOD COUNT 7.8 10^3/uL (4.0-10.0)
[2022-07-01 20:02] LABS: ALBUMIN 3.7 G/DL (3.2-5.2); ALKALINE PHOSPHATASE 139 U/L (46-116); ALT/SGPT 23 U/L (7.0-40); AST/SGOT 19 U/L (<34); BILIRUBIN,TOTAL 0.2 MG/DL (0.3-1.2); BLOOD UREA NITROGEN 17 MG/DL (9-23); CALCIUM LEVEL 8.8 MG/DL (8.3-10.6); CARBON DIOXIDE LEVEL 27 MMOL/L (20-31); CHLORIDE LEVEL 108 MMOL/L (98-107); CREATININE FOR GFR 1.18 MG/DL (0.70-1.30); GLOMERULAR FILTRATION RATE > 60.0 (>42); GLUCOSE, FASTING 100 MG/DL (74-106); IRON (FE) 23 UG/DL (65-175); PERCENT SATURATION 6.2 % (19.7-50.0); POTASSIUM SERUM 5.1 MMOL/L (3.5-5.1); SODIUM LEVEL 142 MMOL/L (136-145); TOTAL IRON BINDING CAPACITY 372 UG/DL (250-425); TOTAL PROTEIN 6.6 G/DL (5.7-8.2)
[2022-07-01 20:05] LABS: FERRITIN 57.8 NG/ML (10.5-307.3)
== END ==
LOC: M LAB REF 19:37
PROVIDERS: ATTEND Internal Medicine Medical Oncology
DX: C34.92 Malignant neoplasm of unspecified part of left bronchus or lung (principal); D50.0 Iron deficiency anemia secondary to blood loss (chronic); R06.09 Other forms of dyspnea; E11.9 Type 2 diabetes mellitus without complications; J44.9 Chronic obstructive pulmonary disease, unspecified; Z95.5 Presence of coronary angioplasty implant and graft

== ENCOUNTER 2022-07-04 12:09 | Outpatient (CLI) | payer MEDICARE, BC ==
[~2022-07-04] VITALS: Ht 172.7 cm; Wt 80.0 kg
[~2022-07-04 12:09] MED LIST changes: +IRON SUCROSE 500 MG in NS 250 ML OVER 4 HRS IV ONE
[2022-07-04 12:33] VITALS: BP 166/70
[2022-07-04 15:41] VITALS: BP 136/64
== END 2022-07-04 15:42 | disposition home or self-care (01) ==
LOC: M INFU 12:09
PROVIDERS: ATTEND Family Medicine
DX: D50.9 Iron deficiency anemia, unspecified (principal); Z88.8 Allergy status to other drugs, medicaments and biological substances
CPT/HCPCS: 96365; 96366; J1756

== ENCOUNTER → 2022-07-19 | Outpatient (REF) | payer MEDICARE, BC ==
[~2022-07-19] MED LIST changes: -IRON SUCROSE 500 MG in NS 250 ML OVER 4 HRS IV ONE
[2022-07-19 11:41] LABS: BASO # 0.1 10^3/uL (0.0-0.2); BASO % 0.8 % (0.0-1.0); EOS # 0.2 10^3/uL (0.0-0.5); EOS % 1.9 % (0.0-3.0); HEMATOCRIT 32.2 % (42.0-52.0); HEMOGLOBIN 9.6 g/dl (13.5-17.5); LYMPH # 1.5 10^3/uL (1.5-5.0); LYMPH % 13.8 % (24.0-44.0); MEAN CORPUSCULAR HEMOGLOBIN 28.7 pg (27.0-33.0); MEAN CORPUSCULAR HGB CONC 29.8 g/dl (32.0-36.5); MEAN CORPUSCULAR VOLUME 96.1 fl (80.0-96.0); MONO # 1.2 10^3/uL (0.0-0.8); MONO % 10.8 % (2.0-8.0); NEUTROPHILS # 7.8 10^3/uL (1.5-8.5); NEUTROPHILS % 72.4 % (36.0-66.0); PLATELET COUNT, AUTOMATED 460 10^3/uL (150-450); RED BLOOD COUNT 3.35 10^6/uL (4.30-6.10); WHITE BLOOD COUNT 10.7 10^3/uL (4.0-10.0)
[2022-07-19 12:14] LABS: FERRITIN 110.9 NG/ML (10.5-307.3)
== END ==
LOC: M SFHCCLAY 08:10
PROVIDERS: ATTEND Family Medicine
DX: D50.0 Iron deficiency anemia secondary to blood loss (chronic) (principal)

== ENCOUNTER 2022-07-25 11:46 | Outpatient (CLI) | payer MEDICARE, BC ==
[~2022-07-25] VITALS: Ht 170.2 cm; Wt 76.0 kg
[~2022-07-25 11:46] MED LIST changes: +ALBUTEROL SULFATE 2.5MG/0.5ML INH NEB SOLN INH PRN; +EPINEPHrine INJ 1 MG/ML 1ML AMP IM PRN; +diphenhydrAMINE 50MG/ML VIAL IV PRN; +methylPREDNISolone 125MG 2ML VIAL IV PRN
[2022-07-25 12:00] VITALS: BP 123/56
[2022-07-25] MEDS ORDERED: NS 1,000 ML IV SCH (12:00)
[2022-07-25] MEDS ORDERED: FERRIC CARBOXYMALTOSE INJ 750 MG in NS 250 ML (>50kg) IV ONE ×3 (12:00)
[2022-07-25 13:05] VITALS: BP 139/96
== END 2022-07-25 13:05 | disposition home or self-care (01) ==
LOC: M INFU 11:46
PROVIDERS: ATTEND Family Medicine
DX: D50.9 Iron deficiency anemia, unspecified (principal); I63.9 Cerebral infarction, unspecified; R26.81 Unsteadiness on feet; Z88.8 Allergy status to other drugs, medicaments and biological substances
CPT/HCPCS: 70450; 96365; J1439

== ENCOUNTER → 2022-07-25 | Outpatient (CLI) | payer MEDICARE, BC | LOC: M RAD 09:21 | PROVIDERS: ATTEND Psychiatry & Neurology Neurology | DX: I63.9 Cerebral infarction, unspecified (principal); R26.81 Unsteadiness on feet ==

== ENCOUNTER 2022-08-01 11:40 | Outpatient (CLI) | payer MEDICARE, BC ==
[~2022-08-01] VITALS: Ht 170.2 cm; Wt 76.0 kg
[2022-08-01 11:40] VITALS: BP 173/71
[~2022-08-01 11:40] MED LIST changes: +FERRIC CARBOXYMALTOSE INJ 750 MG in NS 250 ML (>50kg) IV ONE; +NS 1,000 ML IV SCH
[2022-08-01 13:30] VITALS: BP 134/61
== END 2022-08-01 13:30 | disposition home or self-care (01) ==
LOC: M INFU 11:40
PROVIDERS: ATTEND Family Medicine
DX: D50.9 Iron deficiency anemia, unspecified (principal); Z88.8 Allergy status to other drugs, medicaments and biological substances
CPT/HCPCS: 96365; J1439

== ENCOUNTER → 2022-08-15 | Outpatient (REF) | payer MEDICARE, BC ==
[~2022-08-15] MED LIST changes: -ALBUTEROL SULFATE 2.5MG/0.5ML INH NEB SOLN INH PRN; -EPINEPHrine INJ 1 MG/ML 1ML AMP IM PRN; -FERRIC CARBOXYMALTOSE INJ 750 MG in NS 250 ML (>50kg) IV ONE; -NS 1,000 ML IV SCH; -diphenhydrAMINE 50MG/ML VIAL IV PRN; -methylPREDNISolone 125MG 2ML VIAL IV PRN
[2022-08-15 17:31] LABS: BASO # 0.1 10^3/uL (0.0-0.2); EOS # 0.3 10^3/uL (0.0-0.5); EOS % 3.3 % (0.0-3.0); HEMATOCRIT 35.6 % (42.0-52.0); HEMOGLOBIN 10.9 g/dl (13.5-17.5); LYMPH # 1.2 10^3/uL (1.5-5.0); LYMPH % 15.6 % (24.0-44.0); MEAN CORPUSCULAR HEMOGLOBIN 32.6 pg (27.0-33.0); MEAN CORPUSCULAR HGB CONC 30.6 g/dl (32.0-36.5); MEAN CORPUSCULAR VOLUME 106.6 fl (80.0-96.0); MONO # 0.7 10^3/uL (0.0-0.8); MONO % 8.9 % (2.0-8.0); NEUTROPHILS # 5.5 10^3/uL (1.5-8.5); NEUTROPHILS % 70.8 % (36.0-66.0); PLATELET COUNT, AUTOMATED 379 10^3/uL (150-450); RED BLOOD COUNT 3.34 10^6/uL (4.30-6.10); WHITE BLOOD COUNT 7.8 10^3/uL (4.0-10.0)
[2022-08-15 17:40] LABS: BLOOD UREA NITROGEN 26 MG/DL (9-23); CALCIUM LEVEL 8.3 MG/DL (8.3-10.6); CARBON DIOXIDE LEVEL 26 MMOL/L (20-31); CHLORIDE LEVEL 110 MMOL/L (98-107); CREATININE FOR GFR 1.17 MG/DL (0.70-1.30); GLOMERULAR FILTRATION RATE > 60.0 (>42); GLUCOSE, FASTING 107 MG/DL (74-106); POTASSIUM SERUM 4.8 MMOL/L (3.5-5.1); SODIUM LEVEL 144 MMOL/L (136-145)
[2022-08-15 17:41] LABS: IRON (FE) 65 UG/DL (65-175); PERCENT SATURATION 24.1 % (19.7-50.0); TOTAL IRON BINDING CAPACITY 270 UG/DL (250-425)
== END ==
LOC: M SFHCCLAY 09:52
PROVIDERS: ATTEND Family Medicine
DX: D50.0 Iron deficiency anemia secondary to blood loss (chronic) (principal)

== ENCOUNTER → 2022-08-30 | Outpatient (REF) | payer MEDICARE, BC ==
[2022-08-30 17:31] LABS: HEMATOCRIT 34.7 % (42.0-52.0); HEMOGLOBIN 10.8 g/dl (13.5-17.5); MEAN CORPUSCULAR HEMOGLOBIN 32.5 pg (27.0-33.0); MEAN CORPUSCULAR HGB CONC 31.1 g/dl (32.0-36.5); MEAN CORPUSCULAR VOLUME 104.5 fl (80.0-96.0); PLATELET COUNT, AUTOMATED 346 10^3/uL (150-450); RED BLOOD COUNT 3.32 10^6/uL (4.30-6.10); WHITE BLOOD COUNT 6.8 10^3/uL (4.0-10.0)
[2022-08-30 17:54] LABS: PERCENT SATURATION 14.7 % (19.7-50.0)
== END ==
LOC: M SFHCCLAY 11:37
PROVIDERS: ATTEND Family Medicine
DX: D50.0 Iron deficiency anemia secondary to blood loss (chronic) (principal)

== ENCOUNTER 2022-09-11 09:00 | Outpatient (CLI) | payer MEDICARE, BC ==
[~2022-09-11] VITALS: Ht 175.3 cm; Wt 76.0 kg
[2022-09-11 09:15] VITALS: BP 150/68; O2SAT 97
[2022-09-11] MEDS ORDERED: IRON SUCROSE 500 MG in NS 250 ML OVER 4 HRS IV ONE (09:30)
[2022-09-11 12:40] VITALS: BP 136/62; O2SAT 95
== END 2022-09-11 12:50 ==
LOC: M INFU 09:00
PROVIDERS: ATTEND Family Medicine
DX: D50.9 Iron deficiency anemia, unspecified (principal); Z88.8 Allergy status to other drugs, medicaments and biological substances
CPT/HCPCS: 96365; 96366; J1756

== ENCOUNTER → 2022-10-01 | Outpatient (REF) | payer MEDICARE, BC ==
[2022-10-01 18:45] LABS: BASO # 0.1 10^3/uL (0.0-0.2); BASO % 1.1 % (0.0-1.0); EOS # 0.3 10^3/uL (0.0-0.5); EOS % 4.1 % (0.0-3.0); HEMATOCRIT 35.3 % (42.0-52.0); HEMOGLOBIN 11.1 g/dl (13.5-17.5); LYMPH # 1.5 10^3/uL (1.5-5.0); LYMPH % 22.2 % (24.0-44.0); MEAN CORPUSCULAR HGB CONC 31.4 g/dl (32.0-36.5); MEAN CORPUSCULAR VOLUME 105.1 fl (80.0-96.0); MONO # 0.8 10^3/uL (0.0-0.8); MONO % 11.3 % (2.0-8.0); NEUTROPHILS # 4.1 10^3/uL (1.5-8.5); NEUTROPHILS % 61.1 % (36.0-66.0); PLATELET COUNT, AUTOMATED 380 10^3/uL (150-450); RED BLOOD COUNT 3.36 10^6/uL (4.30-6.10); WHITE BLOOD COUNT 6.7 10^3/uL (4.0-10.0)
[2022-10-01 19:08] LABS: FERRITIN 141.3 NG/ML (10.5-307.3)
[2022-10-01 19:10] LABS: PERCENT SATURATION 15.5 % (19.7-50.0)
[2022-10-01 19:11] LABS: ALBUMIN 3.8 G/DL (3.2-5.2); BILIRUBIN,TOTAL 0.2 MG/DL (0.3-1.2); CREATININE FOR GFR 1.25 MG/DL (0.70-1.30); GLOMERULAR FILTRATION RATE 59.3 (>42); POTASSIUM SERUM 5.2 MMOL/L (3.5-5.1); TOTAL PROTEIN 6.6 G/DL (5.7-8.2)
== END ==
LOC: M LABDRAWC 17:42
PROVIDERS: ATTEND Internal Medicine Medical Oncology
DX: C44.622 Squamous cell carcinoma of skin of right upper limb, including shoulder (principal); C44.629 Squamous cell carcinoma of skin of left upper limb, including shoulder; C44.42 Squamous cell carcinoma of skin of scalp and neck

== ENCOUNTER → 2022-10-25 | Outpatient (REF) | payer MEDICARE, BC ==
[2022-10-25 12:29] LABS: HEMATOCRIT 36.2 % (42.0-52.0); HEMOGLOBIN 11.4 g/dl (13.5-17.5); MEAN CORPUSCULAR HEMOGLOBIN 32.5 pg (27.0-33.0); MEAN CORPUSCULAR HGB CONC 31.5 g/dl (32.0-36.5); MEAN CORPUSCULAR VOLUME 103.1 fl (80.0-96.0); PLATELET COUNT, AUTOMATED 376 10^3/uL (150-450); RED BLOOD COUNT 3.51 10^6/uL (4.30-6.10); WHITE BLOOD COUNT 9.3 10^3/uL (4.0-10.0)
[2022-10-25 12:57] LABS: PERCENT SATURATION 9.7 % (19.7-50.0)
== END ==
LOC: M SFHCCLAY 08:58
PROVIDERS: ATTEND Family Medicine
DX: E83.42 Hypomagnesemia (principal); D50.0 Iron deficiency anemia secondary to blood loss (chronic)

== ENCOUNTER 2022-11-01 09:27 | Outpatient (CLI) | payer MEDICARE, BC ==
[~2022-11-01] VITALS: Ht 172.7 cm; Wt 76.3 kg
[2022-11-01 09:35] VITALS: BP 124/60; O2SAT 96
[2022-11-01] MEDS ORDERED: IRON SUCROSE 500 MG in NS 250 ML OVER 4 HRS IV ONE (10:00)
[2022-11-01 11:30] VITALS: BP 140/65; O2SAT 97
[2022-11-01 12:30] VITALS: BP 150/66; O2SAT 95
[2022-11-01 14:10] VITALS: BP 131/65; O2SAT 95
== END 2022-11-01 14:10 ==
LOC: M INFU 09:27
PROVIDERS: ATTEND Family Medicine
DX: D50.9 Iron deficiency anemia, unspecified (principal); Z88.8 Allergy status to other drugs, medicaments and biological substances

== ENCOUNTER 2022-11-15 08:00 | Outpatient (CLI) | payer MEDICARE, BC ==
[~2022-11-15] VITALS: Ht 172.7 cm; Wt 77.0 kg
[~2022-11-15 08:00] MED LIST changes: +IRON SUCROSE 500 MG in NS 250 ML OVER 4 HRS IV ONE; -PANT40TA29; +PANT40TA29 PO
[2022-11-15 08:23] VITALS: BP 114/56; O2SAT 97
[2022-11-15 09:30] VITALS: BP 112/70; O2SAT 96
[2022-11-15 10:27] VITALS: BP 107/57; O2SAT 95
[2022-11-15 13:09] VITALS: BP 138/61; O2SAT 96
[2022-11-22] MEDS ORDERED: BUDE10.7 INH (09:49)
[2022-11-22] MEDS ORDERED: ALBU8.5H INH (09:49)
[2022-11-22] MEDS ORDERED: PRED5TA PO (10:05)
== END 2022-11-15 13:05 | disposition home or self-care (01) ==
LOC: M INFU 08:00
PROVIDERS: ATTEND Family Medicine
DX: D50.9 Iron deficiency anemia, unspecified (principal); Z88.8 Allergy status to other drugs, medicaments and biological substances
CPT/HCPCS: 96365; 96366; J1756

== ENCOUNTER → 2022-11-29 | Outpatient (REF) | payer MEDICARE, BC ==
[~2022-11-29] MED LIST changes: +ALBU8.5H INH; +BUDE10.7 INH; -IRON SUCROSE 500 MG in NS 250 ML OVER 4 HRS IV ONE; +PANT40TA29; -PANT40TA29 PO; +PRED5TA PO
[2022-11-29 12:42] LABS: BASO # 0.1 10^3/uL (0.0-0.2); EOS # 0.1 10^3/uL (0.0-0.5); EOS % 1.5 % (0.0-3.0); HEMATOCRIT 34.8 % (42.0-52.0); HEMOGLOBIN 10.7 g/dl (13.5-17.5); LYMPH # 1.3 10^3/uL (1.5-5.0); LYMPH % 18.2 % (24.0-44.0); MEAN CORPUSCULAR HEMOGLOBIN 32.8 pg (27.0-33.0); MEAN CORPUSCULAR HGB CONC 30.7 g/dl (32.0-36.5); MEAN CORPUSCULAR VOLUME 106.7 fl (80.0-96.0); MONO # 0.9 10^3/uL (0.0-0.8); MONO % 12.6 % (2.0-8.0); NEUTROPHILS # 4.7 10^3/uL (1.5-8.5); NEUTROPHILS % 65.3 % (36.0-66.0); PLATELET COUNT, AUTOMATED 391 10^3/uL (150-450); RED BLOOD COUNT 3.26 10^6/uL (4.30-6.10); WHITE BLOOD COUNT 7.2 10^3/uL (4.0-10.0)
[2022-11-29 12:50] LABS: BLOOD UREA NITROGEN 16 MG/DL (9-23); CARBON DIOXIDE LEVEL 30 MMOL/L (20-31); CHLORIDE LEVEL 108 MMOL/L (98-107); CREATININE FOR GFR 1.07 MG/DL (0.70-1.30); GLOMERULAR FILTRATION RATE > 60.0 (>42); GLUCOSE, FASTING 93 MG/DL (74-106); IRON (FE) 62 UG/DL (65-175); POTASSIUM SERUM 4.9 MMOL/L (3.5-5.1); SODIUM LEVEL 143 MMOL/L (136-145)
[2022-11-29 12:51] LABS: PERCENT SATURATION 22.8 % (19.7-50.0); TOTAL IRON BINDING CAPACITY 272 UG/DL (250-425)
== END ==
LOC: M SFHCCLAY 09:05
PROVIDERS: ATTEND Family Medicine
DX: D50.0 Iron deficiency anemia secondary to blood loss (chronic) (principal)

== ENCOUNTER → 2022-12-05 | Outpatient (REF) | payer MEDICARE, BC ==
[~2022-12-05] MED LIST changes: -PANT40TA29; +PANT40TA29 PO
[2022-12-05 13:12] LABS: BASO # 0.1 10^3/uL (0.0-0.2); BASO % 0.8 % (0.0-1.0); EOS # 0.1 10^3/uL (0.0-0.5); EOS % 1.6 % (0.0-3.0); HEMATOCRIT 34.9 % (42.0-52.0); HEMOGLOBIN 10.8 g/dl (13.5-17.5); LYMPH # 1.3 10^3/uL (1.5-5.0); LYMPH % 16.8 % (24.0-44.0); MEAN CORPUSCULAR HEMOGLOBIN 33.1 pg (27.0-33.0); MEAN CORPUSCULAR HGB CONC 30.9 g/dl (32.0-36.5); MEAN CORPUSCULAR VOLUME 107.1 fl (80.0-96.0); MONO # 0.9 10^3/uL (0.0-0.8); NEUTROPHILS # 5.5 10^3/uL (1.5-8.5); NEUTROPHILS % 69.4 % (36.0-66.0); PLATELET COUNT, AUTOMATED 423 10^3/uL (150-450); RED BLOOD COUNT 3.26 10^6/uL (4.30-6.10)
[2022-12-05 13:22] LABS: FERRITIN 233.1 NG/ML (10.5-307.3); FREE T4 1.06 NG/DL (0.89-1.76)
[2022-12-05 13:23] LABS: ALBUMIN 3.4 G/DL (3.2-5.2); ALKALINE PHOSPHATASE 186 U/L (46-116); ALT/SGPT 20 U/L (7.0-40); AST/SGOT 18 U/L (<34); BILIRUBIN,TOTAL 0.3 MG/DL (0.3-1.2); BLOOD UREA NITROGEN 19 MG/DL (9-23); CALCIUM LEVEL 9.3 MG/DL (8.3-10.6); CARBON DIOXIDE LEVEL 30 MMOL/L (20-31); CHLORIDE LEVEL 104 MMOL/L (98-107); CREATININE FOR GFR 1.12 MG/DL (0.70-1.30); FREE T3 3.3 PG/ML (2.3-4.2); GLOMERULAR FILTRATION RATE > 60.0 (>42); GLUCOSE, FASTING 114 MG/DL (74-106); IRON (FE) 51 UG/DL (65-175); PERCENT SATURATION 18.4 % (19.7-50.0); POTASSIUM SERUM 5.5 MMOL/L (3.5-5.1); SODIUM LEVEL 141 MMOL/L (136-145); TOTAL IRON BINDING CAPACITY 277 UG/DL (250-425); TOTAL PROTEIN 6.2 G/DL (5.7-8.2)
== END ==
LOC: M LABDRAWC 11:59
PROVIDERS: ATTEND Internal Medicine Medical Oncology
DX: C44.42 Squamous cell carcinoma of skin of scalp and neck (principal); C44.529 Squamous cell carcinoma of skin of other part of trunk

== ENCOUNTER → 2022-12-26 | Outpatient (CLI) | payer MEDICARE, BC ==
[~2022-12-26] MED LIST changes: +SUCR1TAB56 PO
== END ==
LOC: M CARPUL 07:41
PROVIDERS: ATTEND Internal Medicine Pulmonary Disease
DX: R91.8 Other nonspecific abnormal finding of lung field (principal)

== ENCOUNTER → 2022-12-26 | Outpatient (CLI) | payer MEDICARE, BC ==
[2022-12-26 08:41] LABS: BASO # 0.1 10^3/uL (0.0-0.2); BASO % 1.3 % (0.0-1.0); EOS # 0.1 10^3/uL (0.0-0.5); EOS % 1.7 % (0.0-3.0); HEMATOCRIT 35.7 % (42.0-52.0); HEMOGLOBIN 11.2 g/dl (13.5-17.5); LYMPH # 1.3 10^3/uL (1.5-5.0); LYMPH % 18.3 % (24.0-44.0); MEAN CORPUSCULAR HEMOGLOBIN 33.5 pg (27.0-33.0); MEAN CORPUSCULAR HGB CONC 31.4 g/dl (32.0-36.5); MEAN CORPUSCULAR VOLUME 106.9 fl (80.0-96.0); MONO # 0.7 10^3/uL (0.0-0.8); MONO % 9.4 % (2.0-8.0); NEUTROPHILS # 4.9 10^3/uL (1.5-8.5); PLATELET COUNT, AUTOMATED 334 10^3/uL (150-450); RED BLOOD COUNT 3.34 10^6/uL (4.30-6.10); WHITE BLOOD COUNT 7.1 10^3/uL (4.0-10.0)
[2022-12-26 09:11] LABS: FREE T3 2.9 PG/ML (2.3-4.2); FREE T4 1.04 NG/DL (0.89-1.76)
[2022-12-26 09:12] LABS: ALBUMIN 3.4 G/DL (3.2-5.2); BILIRUBIN,TOTAL 0.3 MG/DL (0.3-1.2); CALCIUM LEVEL 9.4 MG/DL (8.3-10.6); CREATININE FOR GFR 1.32 MG/DL (0.70-1.30); FERRITIN 76.4 NG/ML (10.5-307.3); GLOMERULAR FILTRATION RATE 55.7 (>42); PERCENT SATURATION 36.2 % (19.7-50.0); POTASSIUM SERUM 4.5 MMOL/L (3.5-5.1); TOTAL PROTEIN 6.3 G/DL (5.7-8.2)
[2022-12-26 09:13] LABS: THYROID STIMULATING HORMONE 1.16 uIU/ML (0.55-4.78)
== END ==
LOC: M LAB 08:14
PROVIDERS: ATTEND Internal Medicine Medical Oncology
DX: C44.622 Squamous cell carcinoma of skin of right upper limb, including shoulder (principal); R91.8 Other nonspecific abnormal finding of lung field

== ENCOUNTER 2022-12-31 09:10 | Outpatient (CLI) | payer MEDICARE, BC ==
[~2022-12-31] VITALS: Ht 172.7 cm; Wt 73.6 kg
[2022-12-31] MEDS ORDERED: IRON SUCROSE 500 MG in NS 250 ML OVER 4 HRS IV ONE (09:15)
[2022-12-31 09:34] VITALS: BP 138/64; O2SAT 97
[2022-12-31 11:15] VITALS: BP 154/75; O2SAT 96
[2022-12-31 12:15] VITALS: BP 123/79; O2SAT 96
[2022-12-31 13:15] VITALS: BP 119/80; O2SAT 97
[2022-12-31 14:15] VITALS: BP 125/62; O2SAT 96
== END 2022-12-31 14:25 | disposition home or self-care (01) ==
LOC: M INFU 09:10
PROVIDERS: ATTEND Family Medicine
DX: D50.9 Iron deficiency anemia, unspecified (principal); Z88.8 Allergy status to other drugs, medicaments and biological substances
CPT/HCPCS: 96365; 96366; J1756

== ENCOUNTER → 2023-01-06 | Outpatient (CLI) | payer MEDICARE, BC | LOC: M PLAIMG 10:36 | PROVIDERS: ATTEND Internal Medicine Pulmonary Disease | DX: R91.8 Other nonspecific abnormal finding of lung field (principal); I25.10 Atherosclerotic heart disease of native coronary artery without angina pectoris; N20.0 Calculus of kidney ==

== ENCOUNTER 2023-01-14 09:40 | Outpatient (CLI) | payer MEDICARE, BC ==
[~2023-01-14] VITALS: Ht 172.7 cm; Wt 74.6 kg
[2023-01-14 09:40] VITALS: BP 147/72; O2SAT 94
[2023-01-14] MEDS ORDERED: IRON SUCROSE 500 MG in NS 250 ML OVER 4 HRS IV ONE (10:00)
[2023-01-14 11:01] VITALS: BP 153/83; O2SAT 96
[2023-01-14 13:00] VITALS: BP 165/80; O2SAT 95
[2023-01-14 14:15] VITALS: BP 164/96; O2SAT 95
== END 2023-01-14 14:15 ==
LOC: M INFU 09:40
PROVIDERS: ATTEND Family Medicine
DX: D50.9 Iron deficiency anemia, unspecified (principal); Z88.8 Allergy status to other drugs, medicaments and biological substances
CPT/HCPCS: 96365; 96366; J1756

== ENCOUNTER → 2023-01-15 | Outpatient (REF) | payer MEDICARE, BC ==
[2023-01-15 18:32] LABS: BASO # 0.1 10^3/uL (0.0-0.2); BASO % 1.3 % (0.0-1.0); EOS # 0.2 10^3/uL (0.0-0.5); EOS % 1.6 % (0.0-3.0); HEMATOCRIT 40.3 % (42.0-52.0); HEMOGLOBIN 12.6 g/dl (13.5-17.5); LYMPH # 1.1 10^3/uL (1.5-5.0); MEAN CORPUSCULAR HEMOGLOBIN 33.7 pg (27.0-33.0); MEAN CORPUSCULAR HGB CONC 31.3 g/dl (32.0-36.5); MEAN CORPUSCULAR VOLUME 107.8 fl (80.0-96.0); MONO # 0.8 10^3/uL (0.0-0.8); MONO % 8.2 % (2.0-8.0); NEUTROPHILS # 7.3 10^3/uL (1.5-8.5); NEUTROPHILS % 76.5 % (36.0-66.0); PLATELET COUNT, AUTOMATED 356 10^3/uL (150-450); RED BLOOD COUNT 3.74 10^6/uL (4.30-6.10); WHITE BLOOD COUNT 9.5 10^3/uL (4.0-10.0)
[2023-01-15 18:55] LABS: ALBUMIN 3.7 G/DL (3.2-5.2); ALKALINE PHOSPHATASE 147 U/L (46-116); ALT/SGPT 21 U/L (7.0-40); AST/SGOT 18 U/L (<34); BILIRUBIN,TOTAL 0.3 MG/DL (0.3-1.2); BLOOD UREA NITROGEN 17 MG/DL (9-23); CALCIUM LEVEL 9.9 MG/DL (8.3-10.6); CARBON DIOXIDE LEVEL 29 MMOL/L (20-31); CHLORIDE LEVEL 105 MMOL/L (98-107); GLOMERULAR FILTRATION RATE > 60.0 (>42); GLUCOSE, FASTING 112 MG/DL (74-106); SODIUM LEVEL 143 MMOL/L (136-145); THYROID STIMULATING HORMONE 1.006 uIU/ML (0.55-4.78); TOTAL PROTEIN 6.5 G/DL (5.7-8.2)
[2023-01-15 18:56] LABS: FERRITIN 394.4 NG/ML (10.5-307.3); FREE T4 1.17 NG/DL (0.89-1.76)
[2023-01-15 18:57] LABS: FREE T3 3.7 PG/ML (2.3-4.2)
== END ==
LOC: M LABDRAWC 17:06
PROVIDERS: ATTEND Internal Medicine Medical Oncology
DX: C44.92 Squamous cell carcinoma of skin, unspecified (principal)

== ENCOUNTER → 2023-01-23 | Outpatient (REF) | payer MEDICARE, BC ==
[2023-01-23 18:56] LABS: HEMATOCRIT 39.8 % (42.0-52.0); HEMOGLOBIN 12.6 g/dl (13.5-17.5); MEAN CORPUSCULAR HEMOGLOBIN 33.4 pg (27.0-33.0); MEAN CORPUSCULAR HGB CONC 31.7 g/dl (32.0-36.5); MEAN CORPUSCULAR VOLUME 105.6 fl (80.0-96.0); PLATELET COUNT, AUTOMATED 325 10^3/uL (150-450); RED BLOOD COUNT 3.77 10^6/uL (4.30-6.10); WHITE BLOOD COUNT 7.4 10^3/uL (4.0-10.0)
[2023-01-23 19:20] LABS: PERCENT SATURATION 32.4 % (19.7-50.0)
== END ==
LOC: M SFHCCLAY 10:21
PROVIDERS: ATTEND Family Medicine
DX: D50.0 Iron deficiency anemia secondary to blood loss (chronic) (principal)

== ENCOUNTER → 2023-02-05 | Outpatient (REF) | payer MEDICARE, BC ==
[2023-02-05 18:01] LABS: BASO # 0.1 10^3/uL (0.0-0.2); BASO % 1.3 % (0.0-1.0); EOS # 0.1 10^3/uL (0.0-0.5); EOS % 1.4 % (0.0-3.0); HEMATOCRIT 40.8 % (42.0-52.0); LYMPH # 1.3 10^3/uL (1.5-5.0); LYMPH % 14.9 % (24.0-44.0); MEAN CORPUSCULAR HEMOGLOBIN 33.6 pg (27.0-33.0); MEAN CORPUSCULAR HGB CONC 31.9 g/dl (32.0-36.5); MEAN CORPUSCULAR VOLUME 105.4 fl (80.0-96.0); MONO # 0.7 10^3/uL (0.0-0.8); MONO % 8.3 % (2.0-8.0); NEUTROPHILS # 6.2 10^3/uL (1.5-8.5); NEUTROPHILS % 73.9 % (36.0-66.0); PLATELET COUNT, AUTOMATED 334 10^3/uL (150-450); RED BLOOD COUNT 3.87 10^6/uL (4.30-6.10); WHITE BLOOD COUNT 8.4 10^3/uL (4.0-10.0)
[2023-02-05 18:25] LABS: ALBUMIN 3.5 G/DL (3.2-5.2); ALKALINE PHOSPHATASE 151 U/L (46-116); ALT/SGPT 27 U/L (7.0-40); AST/SGOT 23 U/L (<34); BILIRUBIN,TOTAL 0.4 MG/DL (0.3-1.2); BLOOD UREA NITROGEN 14 MG/DL (9-23); CALCIUM LEVEL 9.4 MG/DL (8.3-10.6); CARBON DIOXIDE LEVEL 30 MMOL/L (20-31); CHLORIDE LEVEL 107 MMOL/L (98-107); CREATININE FOR GFR 1.11 MG/DL (0.70-1.30); GLOMERULAR FILTRATION RATE > 60.0 (>42); GLUCOSE, FASTING 109 MG/DL (74-106); POTASSIUM SERUM 4.7 MMOL/L (3.5-5.1); SODIUM LEVEL 140 MMOL/L (136-145); TOTAL PROTEIN 6.5 G/DL (5.7-8.2)
[2023-02-05 18:27] LABS: FREE T4 1.04 NG/DL (0.89-1.76); THYROID STIMULATING HORMONE 0.654 uIU/ML (0.55-4.78)
[2023-02-05 18:29] LABS: FREE T3 3.1 PG/ML (2.3-4.2)
== END ==
LOC: M LABDRAWC 17:25
PROVIDERS: ATTEND Internal Medicine Medical Oncology
DX: Z13.228 Encounter for screening for other metabolic disorders (principal); Z79.899 Other long term (current) drug therapy

== ENCOUNTER → 2023-02-11 | Outpatient (CLI) | payer MEDICARE, BC | LOC: M PLAIMG 13:50 | PROVIDERS: ATTEND Internal Medicine Medical Oncology | DX: C34.90 Malignant neoplasm of unspecified part of unspecified bronchus or lung (principal); H53.9 Unspecified visual disturbance; R90.82 White matter disease, unspecified ==

== ENCOUNTER → 2023-02-11 | Outpatient (REF) | payer MEDICARE, BC ==
[2023-02-11 19:57] LABS: HEMATOCRIT 40.4 % (42.0-52.0); HEMOGLOBIN 12.8 g/dl (13.5-17.5); MEAN CORPUSCULAR HEMOGLOBIN 33.5 pg (27.0-33.0); MEAN CORPUSCULAR HGB CONC 31.7 g/dl (32.0-36.5); MEAN CORPUSCULAR VOLUME 105.8 fl (80.0-96.0); PLATELET COUNT, AUTOMATED 325 10^3/uL (150-450); RED BLOOD COUNT 3.82 10^6/uL (4.30-6.10); WHITE BLOOD COUNT 9.4 10^3/uL (4.0-10.0)
[2023-02-11 20:20] LABS: PERCENT SATURATION 36.3 % (19.7-50.0)
== END ==
LOC: M SFHCCLAY 10:35
PROVIDERS: ATTEND Family Medicine
DX: D50.0 Iron deficiency anemia secondary to blood loss (chronic) (principal)

== ENCOUNTER → 2023-02-14 | Outpatient (CLI) | payer MEDICARE, BC | LOC: M RAD 12:13 | PROVIDERS: ATTEND Family Medicine | DX: Z53.9 Procedure and treatment not carried out, unspecified reason (principal) ==

== ENCOUNTER → 2023-02-19 | Outpatient (CLI) | payer MEDICARE, BC ==
[~2023-02-19] MED LIST changes: +ISOVUE-370 76% 100ML VIAL As Ordered ONE
== END ==
LOC: M RAD 13:48
PROVIDERS: ATTEND Family Medicine
DX: R51.9 Headache, unspecified (principal); C34.92 Malignant neoplasm of unspecified part of left bronchus or lung; G31.9 Degenerative disease of nervous system, unspecified
CPT/HCPCS: 70470; Q9967

== ENCOUNTER → 2023-03-05 | Outpatient (REF) | payer MEDICARE, BC ==
[~2023-03-05] MED LIST changes: -ISOVUE-370 76% 100ML VIAL As Ordered ONE
[2023-03-05 17:36] LABS: BASO # 0.1 10^3/uL (0.0-0.2); BASO % 1.2 % (0.0-1.0); EOS # 0.2 10^3/uL (0.0-0.5); EOS % 2.3 % (0.0-3.0); HEMATOCRIT 42.2 % (42.0-52.0); HEMOGLOBIN 13.1 g/dl (13.5-17.5); LYMPH # 1.3 10^3/uL (1.5-5.0); LYMPH % 16.8 % (24.0-44.0); MEAN CORPUSCULAR HEMOGLOBIN 32.5 pg (27.0-33.0); MEAN CORPUSCULAR VOLUME 104.7 fl (80.0-96.0); MONO # 0.6 10^3/uL (0.0-0.8); MONO % 7.9 % (2.0-8.0); NEUTROPHILS # 5.5 10^3/uL (1.5-8.5); NEUTROPHILS % 71.5 % (36.0-66.0); PLATELET COUNT, AUTOMATED 313 10^3/uL (150-450); RED BLOOD COUNT 4.03 10^6/uL (4.30-6.10); WHITE BLOOD COUNT 7.7 10^3/uL (4.0-10.0)
[2023-03-05 18:08] LABS: ALBUMIN 3.7 G/DL (3.2-5.2); ALKALINE PHOSPHATASE 122 U/L (46-116); ALT/SGPT 24 U/L (7.0-40); AST/SGOT 24 U/L (<34); BILIRUBIN,TOTAL 0.3 MG/DL (0.3-1.2); BLOOD UREA NITROGEN 16 MG/DL (9-23); CALCIUM LEVEL 9.2 MG/DL (8.3-10.6); CARBON DIOXIDE LEVEL 29 MMOL/L (20-31); CHLORIDE LEVEL 106 MMOL/L (98-107); CREATININE FOR GFR 1.11 MG/DL (0.70-1.30); GLOMERULAR FILTRATION RATE > 60.0 (>42); GLUCOSE, FASTING 120 MG/DL (74-106); POTASSIUM SERUM 4.9 MMOL/L (3.5-5.1); SODIUM LEVEL 140 MMOL/L (136-145); TOTAL PROTEIN 6.4 G/DL (5.7-8.2)
[2023-03-05 18:10] LABS: FREE T3 3.5 PG/ML (2.3-4.2); THYROID STIMULATING HORMONE 1.556 uIU/ML (0.55-4.78)
[2023-03-05 18:11] LABS: CORTISOL AM 33.6 UG/DL (4.3-22.4); FREE T4 1.34 NG/DL (0.89-1.76)
[2023-03-07 10:25] LABS: MAGNESIUM LEVEL 1.7 MG/DL (1.8-2.4)
== END ==
LOC: M LABDRAWC 16:57
PROVIDERS: ATTEND Internal Medicine Medical Oncology
DX: Z00.00 Encounter for general adult medical examination without abnormal findings (principal); C44.622 Squamous cell carcinoma of skin of right upper limb, including shoulder; Z79.899 Other long term (current) drug therapy

== ENCOUNTER → 2023-03-05 | Outpatient (REF) | payer MEDICARE, BC ==
[2023-03-05 18:04] LABS: PERCENT SATURATION 22.4 % (19.7-50.0)
== END ==
LOC: M SFHCCLAY 10:14
PROVIDERS: ATTEND Family Medicine
DX: Z00.00 Encounter for general adult medical examination without abnormal findings (principal)

== ENCOUNTER → 2023-03-26 | Outpatient (REF) | payer MEDICARE, BC ==
[2023-03-26 17:34] LABS: BASO # 0.1 10^3/uL (0.0-0.2); BASO % 1.2 % (0.0-1.0); EOS # 0.2 10^3/uL (0.0-0.5); HEMATOCRIT 38.8 % (42.0-52.0); HEMOGLOBIN 12.3 g/dl (13.5-17.5); LYMPH # 1.3 10^3/uL (1.5-5.0); LYMPH % 16.7 % (24.0-44.0); MEAN CORPUSCULAR HEMOGLOBIN 33.1 pg (27.0-33.0); MEAN CORPUSCULAR HGB CONC 31.7 g/dl (32.0-36.5); MEAN CORPUSCULAR VOLUME 104.3 fl (80.0-96.0); MONO # 0.7 10^3/uL (0.0-0.8); MONO % 9.8 % (2.0-8.0); NEUTROPHILS # 5.2 10^3/uL (1.5-8.5); PLATELET COUNT, AUTOMATED 326 10^3/uL (150-450); RED BLOOD COUNT 3.72 10^6/uL (4.30-6.10); WHITE BLOOD COUNT 7.5 10^3/uL (4.0-10.0)
[2023-03-26 17:54] LABS: BLOOD UREA NITROGEN 15 MG/DL (9-23); CALCIUM LEVEL 9.5 MG/DL (8.3-10.6); CARBON DIOXIDE LEVEL 32 MMOL/L (20-31); CHLORIDE LEVEL 105 MMOL/L (98-107); GLOMERULAR FILTRATION RATE > 60.0 (>42); GLUCOSE, FASTING 106 MG/DL (74-106); POTASSIUM SERUM 4.3 MMOL/L (3.5-5.1); SODIUM LEVEL 141 MMOL/L (136-145)
== END ==
LOC: M LABDRAWC 16:52
PROVIDERS: ATTEND Internal Medicine Medical Oncology
DX: Z85.118 Personal history of other malignant neoplasm of bronchus and lung (principal); Z08 Encounter for follow-up examination after completed treatment for malignant neoplasm

== ENCOUNTER → 2023-04-04 | Outpatient (REF) | payer MEDICARE, BC ==
[2023-04-04 17:45] LABS: HEMATOCRIT 40.8 % (42.0-52.0); HEMOGLOBIN 12.8 g/dl (13.5-17.5); MEAN CORPUSCULAR HEMOGLOBIN 33.2 pg (27.0-33.0); MEAN CORPUSCULAR HGB CONC 31.4 g/dl (32.0-36.5); MEAN CORPUSCULAR VOLUME 105.7 fl (80.0-96.0); PLATELET COUNT, AUTOMATED 360 10^3/uL (150-450); RED BLOOD COUNT 3.86 10^6/uL (4.30-6.10); WHITE BLOOD COUNT 7.3 10^3/uL (4.0-10.0)
[2023-04-04 18:15] LABS: PERCENT SATURATION 23.4 % (19.7-50.0)
== END ==
LOC: M SFHCCLAY 10:55
PROVIDERS: ATTEND Family Medicine
DX: D50.0 Iron deficiency anemia secondary to blood loss (chronic) (principal)

== ENCOUNTER → 2023-04-16 | Outpatient (REF) | payer MEDICARE, BC ==
[2023-04-16 18:03] LABS: BASO # 0.1 10^3/uL (0.0-0.2); BASO % 1.3 % (0.0-1.0); EOS # 0.3 10^3/uL (0.0-0.5); EOS % 3.3 % (0.0-3.0); HEMATOCRIT 40.8 % (42.0-52.0); HEMOGLOBIN 12.8 g/dl (13.5-17.5); LYMPH # 1.3 10^3/uL (1.5-5.0); LYMPH % 17.5 % (24.0-44.0); MEAN CORPUSCULAR HGB CONC 31.4 g/dl (32.0-36.5); MEAN CORPUSCULAR VOLUME 105.2 fl (80.0-96.0); MONO # 0.8 10^3/uL (0.0-0.8); MONO % 10.4 % (2.0-8.0); NEUTROPHILS # 5.1 10^3/uL (1.5-8.5); NEUTROPHILS % 67.2 % (36.0-66.0); PLATELET COUNT, AUTOMATED 326 10^3/uL (150-450); RED BLOOD COUNT 3.88 10^6/uL (4.30-6.10); WHITE BLOOD COUNT 7.5 10^3/uL (4.0-10.0)
[2023-04-16 18:32] LABS: ALBUMIN 3.6 G/DL (3.2-5.2); ALKALINE PHOSPHATASE 128 U/L (46-116); ALT/SGPT 25 U/L (7.0-40); AST/SGOT 18 U/L (<34); BILIRUBIN,TOTAL 0.3 MG/DL (0.3-1.2); BLOOD UREA NITROGEN 18 MG/DL (9-23); CALCIUM LEVEL 9.1 MG/DL (8.3-10.6); CARBON DIOXIDE LEVEL 29 MMOL/L (20-31); CHLORIDE LEVEL 105 MMOL/L (98-107); CREATININE FOR GFR 1.13 MG/DL (0.70-1.30); GLOMERULAR FILTRATION RATE > 60.0 (>35); GLUCOSE, FASTING 121 MG/DL (74-106); POTASSIUM SERUM 4.8 MMOL/L (3.5-5.1); SODIUM LEVEL 141 MMOL/L (136-145); TOTAL PROTEIN 6.3 G/DL (5.7-8.2)
[2023-04-16 18:35] LABS: THYROID STIMULATING HORMONE 1.228 uIU/ML (0.55-4.78)
[2023-04-16 18:36] LABS: FREE T4 1.08 NG/DL (0.89-1.76)
== END ==
LOC: M LABDRAWC 17:25
PROVIDERS: ATTEND Internal Medicine Medical Oncology
DX: C44.90 Unspecified malignant neoplasm of skin, unspecified (principal); Z79.899 Other long term (current) drug therapy

== ENCOUNTER → 2023-05-07 | Outpatient (REF) | payer MEDICARE, BC ==
[~2023-05-07] MED LIST changes: -ASPI-161 PO; +ASPI-615 PO
[2023-05-07 12:01] LABS: BASO # 0.1 10^3/uL (0.0-0.2); BASO % 0.9 % (0.0-1.0); EOS # 0.3 10^3/uL (0.0-0.5); EOS % 3.2 % (0.0-3.0); HEMATOCRIT 39.4 % (42.0-52.0); HEMOGLOBIN 12.5 g/dl (13.5-17.5); LYMPH # 1.7 10^3/uL (1.5-5.0); LYMPH % 20.7 % (24.0-44.0); MEAN CORPUSCULAR HEMOGLOBIN 33.2 pg (27.0-33.0); MEAN CORPUSCULAR HGB CONC 31.7 g/dl (32.0-36.5); MEAN CORPUSCULAR VOLUME 104.8 fl (80.0-96.0); MONO # 0.8 10^3/uL (0.0-0.8); MONO % 9.6 % (2.0-8.0); NEUTROPHILS # 5.4 10^3/uL (1.5-8.5); NEUTROPHILS % 65.2 % (36.0-66.0); PLATELET COUNT, AUTOMATED 306 10^3/uL (150-450); RED BLOOD COUNT 3.76 10^6/uL (4.30-6.10); WHITE BLOOD COUNT 8.2 10^3/uL (4.0-10.0)
[2023-05-07 12:37] LABS: ALBUMIN 3.5 G/DL (3.2-5.2); BILIRUBIN,TOTAL 0.3 MG/DL (0.3-1.2); CALCIUM LEVEL 9.2 MG/DL (8.3-10.6); CREATININE FOR GFR 1.31 MG/DL (0.70-1.30); POTASSIUM SERUM 4.3 MMOL/L (3.5-5.1); TOTAL PROTEIN 6.3 G/DL (5.7-8.2)
[2023-05-07 12:40] LABS: THYROID STIMULATING HORMONE 2.132 uIU/ML (0.55-4.78)
== END ==
LOC: M LABDRAWC 11:21
PROVIDERS: ATTEND Internal Medicine Medical Oncology
DX: C34.90 Malignant neoplasm of unspecified part of unspecified bronchus or lung (principal)

== ENCOUNTER → 2023-05-28 | Outpatient (REF) | payer MEDICARE, BC ==
[~2023-05-28] MED LIST changes: +THERTAB52 PO
[2023-05-28 18:20] LABS: BASO # 0.1 10^3/uL (0.0-0.2); BASO % 1.4 % (0.0-1.0); EOS # 0.4 10^3/uL (0.0-0.5); EOS % 4.5 % (0.0-3.0); HEMATOCRIT 38.6 % (42.0-52.0); HEMOGLOBIN 12.2 g/dl (13.5-17.5); LYMPH # 1.2 10^3/uL (1.5-5.0); LYMPH % 14.8 % (24.0-44.0); MEAN CORPUSCULAR HEMOGLOBIN 33.7 pg (27.0-33.0); MEAN CORPUSCULAR HGB CONC 31.6 g/dl (32.0-36.5); MEAN CORPUSCULAR VOLUME 106.6 fl (80.0-96.0); MONO # 0.8 10^3/uL (0.0-0.8); MONO % 9.3 % (2.0-8.0); NEUTROPHILS # 5.8 10^3/uL (1.5-8.5); NEUTROPHILS % 69.8 % (36.0-66.0); PLATELET COUNT, AUTOMATED 333 10^3/uL (150-450); RED BLOOD COUNT 3.62 10^6/uL (4.30-6.10); WHITE BLOOD COUNT 8.3 10^3/uL (4.0-10.0)
[2023-05-28 18:47] LABS: BLOOD UREA NITROGEN 19 MG/DL (9-23); CALCIUM LEVEL 8.3 MG/DL (8.3-10.6); CARBON DIOXIDE LEVEL 32 MMOL/L (20-31); CHLORIDE LEVEL 108 MMOL/L (98-107); CREATININE FOR GFR 1.12 MG/DL (0.70-1.30); GLOMERULAR FILTRATION RATE > 60.0 (>35); GLUCOSE, FASTING 105 MG/DL (74-106); SODIUM LEVEL 143 MMOL/L (136-145)
[2023-05-28 18:59] LABS: HEMOGLOBIN A1c 6.1 % (4.0-6.0)
== END ==
LOC: M SFHCCLAY 10:51
PROVIDERS: ATTEND Family Medicine
DX: I10 Essential (primary) hypertension (principal); E11.9 Type 2 diabetes mellitus without complications

== ENCOUNTER → 2023-05-28 | Outpatient (REF) | payer MEDICARE, BC ==
[2023-05-28 18:19] LABS: BASO # 0.1 10^3/uL (0.0-0.2); BASO % 1.2 % (0.0-1.0); EOS # 0.4 10^3/uL (0.0-0.5); EOS % 4.2 % (0.0-3.0); HEMATOCRIT 39.1 % (42.0-52.0); HEMOGLOBIN 12.2 g/dl (13.5-17.5); LYMPH # 1.2 10^3/uL (1.5-5.0); LYMPH % 14.8 % (24.0-44.0); MEAN CORPUSCULAR HEMOGLOBIN 33.3 pg (27.0-33.0); MEAN CORPUSCULAR HGB CONC 31.2 g/dl (32.0-36.5); MEAN CORPUSCULAR VOLUME 106.8 fl (80.0-96.0); MONO # 0.8 10^3/uL (0.0-0.8); NEUTROPHILS # 5.8 10^3/uL (1.5-8.5); NEUTROPHILS % 70.4 % (36.0-66.0); PLATELET COUNT, AUTOMATED 343 10^3/uL (150-450); RED BLOOD COUNT 3.66 10^6/uL (4.30-6.10); WHITE BLOOD COUNT 8.3 10^3/uL (4.0-10.0)
[2023-05-28 18:48] LABS: ALBUMIN 3.6 G/DL (3.2-5.2); ALKALINE PHOSPHATASE 122 U/L (46-116); ALT/SGPT 32 U/L (7.0-40); AST/SGOT 19 U/L (<34); BILIRUBIN,TOTAL 0.4 MG/DL (0.3-1.2); BLOOD UREA NITROGEN 20 MG/DL (9-23); CALCIUM LEVEL 8.9 MG/DL (8.3-10.6); CARBON DIOXIDE LEVEL 32 MMOL/L (20-31); CHLORIDE LEVEL 105 MMOL/L (98-107); CREATININE FOR GFR 1.09 MG/DL (0.70-1.30); GLOMERULAR FILTRATION RATE > 60.0 (>35); GLUCOSE, FASTING 109 MG/DL (74-106); POTASSIUM SERUM 4.8 MMOL/L (3.5-5.1); SODIUM LEVEL 139 MMOL/L (136-145); TOTAL PROTEIN 6.4 G/DL (5.7-8.2)
[2023-05-28 18:49] LABS: FREE T4 1.03 NG/DL (0.89-1.76); THYROID STIMULATING HORMONE 1.524 uIU/ML (0.55-4.78)
== END ==
LOC: M LABDRAWC 17:39
PROVIDERS: ATTEND Internal Medicine Medical Oncology
DX: C44.622 Squamous cell carcinoma of skin of right upper limb, including shoulder (principal); Z79.899 Other long term (current) drug therapy

== ENCOUNTER → 2023-06-09 | Outpatient (CLI) | payer MEDICARE, BC | LOC: M PLAIMG 09:25 | PROVIDERS: ATTEND Family Medicine | DX: C34.92 Malignant neoplasm of unspecified part of left bronchus or lung (principal); Z95.0 Presence of cardiac pacemaker; I70.0 Atherosclerosis of aorta; I25.10 Atherosclerotic heart disease of native coronary artery without angina pectoris; Z90.2 Acquired absence of lung [part of]; R91.8 Other nonspecific abnormal finding of lung field ==

== ENCOUNTER → 2023-06-18 | Outpatient (REF) | payer MEDICARE, BC ==
[~2023-06-18] MED LIST changes: -MIRT-60 PO; +MIRT-89 PO
[2023-06-18 18:01] LABS: BASO # 0.1 10^3/uL (0.0-0.2); BASO % 1.3 % (0.0-1.0); EOS # 0.2 10^3/uL (0.0-0.5); EOS % 2.5 % (0.0-3.0); HEMATOCRIT 41.3 % (42.0-52.0); HEMOGLOBIN 13.1 g/dl (13.5-17.5); LYMPH # 1.3 10^3/uL (1.5-5.0); LYMPH % 14.2 % (24.0-44.0); MEAN CORPUSCULAR HEMOGLOBIN 33.2 pg (27.0-33.0); MEAN CORPUSCULAR HGB CONC 31.7 g/dl (32.0-36.5); MEAN CORPUSCULAR VOLUME 104.8 fl (80.0-96.0); MONO % 10.4 % (2.0-8.0); NEUTROPHILS # 6.6 10^3/uL (1.5-8.5); NEUTROPHILS % 71.3 % (36.0-66.0); PLATELET COUNT, AUTOMATED 326 10^3/uL (150-450); RED BLOOD COUNT 3.94 10^6/uL (4.30-6.10); WHITE BLOOD COUNT 9.2 10^3/uL (4.0-10.0)
[2023-06-18 18:25] LABS: FERRITIN 32.9 NG/ML (10.5-307.3); THYROID STIMULATING HORMONE 1.182 uIU/ML (0.55-4.78)
[2023-06-18 18:26] LABS: VITAMIN B12 LEVEL 552 PG/ML (211-911)
[2023-06-18 18:27] LABS: ALBUMIN 3.7 G/DL (3.2-5.2); ALKALINE PHOSPHATASE 130 U/L (46-116); ALT/SGPT 24 U/L (7.0-40); AST/SGOT 17 U/L (<34); BILIRUBIN,TOTAL 0.4 MG/DL (0.3-1.2); BLOOD UREA NITROGEN 19 MG/DL (9-23); CALCIUM LEVEL 9.6 MG/DL (8.3-10.6); CARBON DIOXIDE LEVEL 31 MMOL/L (20-31); CHLORIDE LEVEL 107 MMOL/L (98-107); CREATININE FOR GFR 1.13 MG/DL (0.70-1.30); GLOMERULAR FILTRATION RATE > 60.0 (>35); GLUCOSE, FASTING 136 MG/DL (74-106); IRON (FE) 85 UG/DL (65-175); PERCENT SATURATION 26.2 % (19.7-50.0); POTASSIUM SERUM 5.1 MMOL/L (3.5-5.1); SODIUM LEVEL 141 MMOL/L (136-145); TOTAL IRON BINDING CAPACITY 324 UG/DL (250-425); TOTAL PROTEIN 6.4 G/DL (5.7-8.2)
== END ==
LOC: M LABDRAWC 17:21
PROVIDERS: ATTEND Internal Medicine Medical Oncology
DX: C44.92 Squamous cell carcinoma of skin, unspecified (principal); Z79.899 Other long term (current) drug therapy; D50.0 Iron deficiency anemia secondary to blood loss (chronic)

== ENCOUNTER → 2023-06-18 | Outpatient (REF) | payer MEDICARE, BC ==
[2023-06-18 17:57] LABS: HEMATOCRIT 40.9 % (42.0-52.0); MEAN CORPUSCULAR HEMOGLOBIN 33.2 pg (27.0-33.0); MEAN CORPUSCULAR HGB CONC 31.8 g/dl (32.0-36.5); MEAN CORPUSCULAR VOLUME 104.3 fl (80.0-96.0); PLATELET COUNT, AUTOMATED 338 10^3/uL (150-450); RED BLOOD COUNT 3.92 10^6/uL (4.30-6.10); WHITE BLOOD COUNT 9.3 10^3/uL (4.0-10.0)
[2023-06-18 18:20] LABS: PERCENT SATURATION 25.5 % (19.7-50.0)
== END ==
LOC: M SFHCCLAY 12:20
PROVIDERS: ATTEND Family Medicine
DX: D50.0 Iron deficiency anemia secondary to blood loss (chronic) (principal)

== ENCOUNTER → 2023-07-09 | Outpatient (REF) | payer MEDICARE, BC ==
[2023-07-09 18:06] LABS: BASO # 0.1 10^3/uL (0.0-0.2); BASO % 1.4 % (0.0-1.0); EOS # 0.3 10^3/uL (0.0-0.5); EOS % 3.4 % (0.0-3.0); HEMATOCRIT 39.2 % (42.0-52.0); HEMOGLOBIN 12.6 g/dl (13.5-17.5); LYMPH # 1.3 10^3/uL (1.5-5.0); LYMPH % 15.3 % (24.0-44.0); MEAN CORPUSCULAR HEMOGLOBIN 33.2 pg (27.0-33.0); MEAN CORPUSCULAR HGB CONC 32.1 g/dl (32.0-36.5); MEAN CORPUSCULAR VOLUME 103.4 fl (80.0-96.0); MONO # 0.8 10^3/uL (0.0-0.8); MONO % 9.6 % (2.0-8.0); NEUTROPHILS # 6.1 10^3/uL (1.5-8.5); NEUTROPHILS % 70.1 % (36.0-66.0); PLATELET COUNT, AUTOMATED 337 10^3/uL (150-450); RED BLOOD COUNT 3.79 10^6/uL (4.30-6.10); WHITE BLOOD COUNT 8.8 10^3/uL (4.0-10.0)
[2023-07-09 18:28] LABS: ALBUMIN 3.7 G/DL (3.2-5.2); BILIRUBIN,TOTAL 0.3 MG/DL (0.3-1.2); CALCIUM LEVEL 9.9 MG/DL (8.3-10.6); CREATININE FOR GFR 1.34 MG/DL (0.70-1.30); GLOMERULAR FILTRATION RATE 54.6 (>35); POTASSIUM SERUM 5.2 MMOL/L (3.5-5.1); TOTAL PROTEIN 6.5 G/DL (5.7-8.2)
[2023-07-09 18:31] LABS: FREE T3 3.3 PG/ML (2.3-4.2)
[2023-07-09 18:32] LABS: THYROID STIMULATING HORMONE 1.035 uIU/ML (0.55-4.78)
[2023-07-09 18:33] LABS: FREE T4 0.99 NG/DL (0.89-1.76)
== END ==
LOC: M LABDRAWC 17:09
PROVIDERS: ATTEND Internal Medicine Medical Oncology
DX: C44.92 Squamous cell carcinoma of skin, unspecified (principal); Z79.899 Other long term (current) drug therapy

== ENCOUNTER → 2023-07-30 | Outpatient (REF) | payer MEDICARE, BC ==
[2023-07-30 18:51] LABS: BASO # 0.1 10^3/uL (0.0-0.2); BASO % 0.9 % (0.0-1.0); EOS # 0.2 10^3/uL (0.0-0.5); EOS % 2.2 % (0.0-3.0); HEMATOCRIT 37.6 % (42.0-52.0); LYMPH # 1.1 10^3/uL (1.5-5.0); LYMPH % 11.8 % (24.0-44.0); MEAN CORPUSCULAR HEMOGLOBIN 32.2 pg (27.0-33.0); MEAN CORPUSCULAR HGB CONC 31.9 g/dl (32.0-36.5); MEAN CORPUSCULAR VOLUME 100.8 fl (80.0-96.0); MONO # 0.9 10^3/uL (0.0-0.8); MONO % 9.5 % (2.0-8.0); NEUTROPHILS % 75.1 % (36.0-66.0); PLATELET COUNT, AUTOMATED 326 10^3/uL (150-450); RED BLOOD COUNT 3.73 10^6/uL (4.30-6.10); WHITE BLOOD COUNT 9.4 10^3/uL (4.0-10.0)
[2023-07-30 19:08] LABS: ALBUMIN 3.4 G/DL (3.2-5.2); ALKALINE PHOSPHATASE 155 U/L (46-116); ALT/SGPT 27 U/L (7.0-40); AST/SGOT 17 U/L (<34); BILIRUBIN,TOTAL 0.3 MG/DL (0.3-1.2); BLOOD UREA NITROGEN 23 MG/DL (9-23); CALCIUM LEVEL 9.6 MG/DL (8.3-10.6); CARBON DIOXIDE LEVEL 31 MMOL/L (20-31); CHLORIDE LEVEL 105 MMOL/L (98-107); CREATININE FOR GFR 1.17 MG/DL (0.70-1.30); GLOMERULAR FILTRATION RATE > 60.0 (>35); GLUCOSE, FASTING 121 MG/DL (74-106); POTASSIUM SERUM 4.9 MMOL/L (3.5-5.1); SODIUM LEVEL 140 MMOL/L (136-145); TOTAL PROTEIN 6.3 G/DL (5.7-8.2)
[2023-07-30 19:12] LABS: THYROID STIMULATING HORMONE 0.922 uIU/ML (0.55-4.78)
== END ==
LOC: M LABDRAWC 16:48
PROVIDERS: ATTEND Internal Medicine Medical Oncology
DX: C44.92 Squamous cell carcinoma of skin, unspecified (principal)

== ENCOUNTER → 2023-08-20 | Outpatient (REF) | payer MEDICARE, BC ==
[2023-08-20 18:57] LABS: BASO # 0.1 10^3/uL (0.0-0.2); BASO % 1.2 % (0.0-1.0); EOS # 0.2 10^3/uL (0.0-0.5); EOS % 2.3 % (0.0-3.0); HEMATOCRIT 38.6 % (42.0-52.0); HEMOGLOBIN 12.4 g/dl (13.5-17.5); LYMPH # 1.4 10^3/uL (1.5-5.0); LYMPH % 15.4 % (24.0-44.0); MEAN CORPUSCULAR HEMOGLOBIN 32.5 pg (27.0-33.0); MEAN CORPUSCULAR HGB CONC 32.1 g/dl (32.0-36.5); MONO # 1.1 10^3/uL (0.0-0.8); MONO % 11.4 % (2.0-8.0); NEUTROPHILS # 6.4 10^3/uL (1.5-8.5); NEUTROPHILS % 69.4 % (36.0-66.0); PLATELET COUNT, AUTOMATED 366 10^3/uL (150-450); RED BLOOD COUNT 3.82 10^6/uL (4.30-6.10); WHITE BLOOD COUNT 9.2 10^3/uL (4.0-10.0)
[2023-08-20 19:00] LABS: TOTAL IRON BINDING CAPACITY 342 UG/DL (250-425)
[2023-08-20 19:04] LABS: ALBUMIN 3.6 G/DL (3.2-5.2); ALKALINE PHOSPHATASE 163 U/L (46-116); ALT/SGPT 24 U/L (7.0-40); AST/SGOT 14 U/L (<34); BILIRUBIN,TOTAL 0.3 MG/DL (0.3-1.2); BLOOD UREA NITROGEN 18 MG/DL (9-23); CALCIUM LEVEL 9.6 MG/DL (8.3-10.6); CARBON DIOXIDE LEVEL 28 MMOL/L (20-31); CHLORIDE LEVEL 105 MMOL/L (98-107); CREATININE FOR GFR 1.23 MG/DL (0.70-1.30); FERRITIN 25.8 NG/ML (10.5-307.3); GLOMERULAR FILTRATION RATE > 60.0 (>35); GLUCOSE, FASTING 115 MG/DL (74-106); IRON (FE) 56 UG/DL (65-175); PERCENT SATURATION 16.4 % (19.7-50.0); POTASSIUM SERUM 4.2 MMOL/L (3.5-5.1); SODIUM LEVEL 138 MMOL/L (136-145); TOTAL PROTEIN 6.5 G/DL (5.7-8.2); VITAMIN B12 LEVEL 596 PG/ML (211-911)
== END ==
LOC: M LABDRAWC 16:46
PROVIDERS: ATTEND Specialist
DX: C44.92 Squamous cell carcinoma of skin, unspecified (principal)

== ENCOUNTER → 2023-10-01 | Outpatient (REF) | payer MEDICARE, BC ==
[~2023-10-01] MED LIST changes: +DIFI200T PO; +PHOS1TAB3 PO; +SOD250TA2
[2023-10-01 18:48] LABS: BASO # 0.1 10^3/uL (0.0-0.2); BASO % 0.9 % (0.0-1.0); EOS # 0.3 10^3/uL (0.0-0.5); EOS % 2.6 % (0.0-3.0); HEMOGLOBIN 12.9 g/dl (13.5-17.5); LYMPH # 1.5 10^3/uL (1.5-5.0); LYMPH % 14.6 % (24.0-44.0); MEAN CORPUSCULAR HEMOGLOBIN 33.5 pg (27.0-33.0); MEAN CORPUSCULAR HGB CONC 32.3 g/dl (32.0-36.5); MEAN CORPUSCULAR VOLUME 103.9 fl (80.0-96.0); MONO % 10.3 % (2.0-8.0); NEUTROPHILS # 7.1 10^3/uL (1.5-8.5); NEUTROPHILS % 71.1 % (36.0-66.0); PLATELET COUNT, AUTOMATED 320 10^3/uL (150-450); RED BLOOD COUNT 3.85 10^6/uL (4.30-6.10)
[2023-10-01 19:05] LABS: ALBUMIN 3.6 G/DL (3.2-5.2); BILIRUBIN,TOTAL 0.3 MG/DL (0.3-1.2); CALCIUM LEVEL 9.1 MG/DL (8.3-10.6); CREATININE FOR GFR 1.36 MG/DL (0.70-1.30); GLOMERULAR FILTRATION RATE 53.7 (>35); POTASSIUM SERUM 5.4 MMOL/L (3.5-5.1); TOTAL PROTEIN 6.4 G/DL (5.7-8.2)
[2023-10-01 19:07] LABS: FREE T4 1.06 NG/DL (0.89-1.76)
[2023-10-01 19:08] LABS: THYROID STIMULATING HORMONE 1.077 uIU/ML (0.55-4.78)
== END ==
LOC: M LABDRAWC 09:43
PROVIDERS: ATTEND Specialist
DX: C44.90 Unspecified malignant neoplasm of skin, unspecified (principal); Z79.899 Other long term (current) drug therapy

== ENCOUNTER → 2023-10-24 | Outpatient (REF) | payer MEDICARE, BC ==
[2023-10-24 18:35] LABS: BASO # 0.1 10^3/uL (0.0-0.2); BASO % 0.8 % (0.0-1.0); EOS # 0.3 10^3/uL (0.0-0.5); HEMATOCRIT 40.1 % (42.0-52.0); LYMPH # 1.1 10^3/uL (1.5-5.0); LYMPH % 12.6 % (24.0-44.0); MEAN CORPUSCULAR HEMOGLOBIN 33.5 pg (27.0-33.0); MEAN CORPUSCULAR HGB CONC 32.4 g/dl (32.0-36.5); MEAN CORPUSCULAR VOLUME 103.4 fl (80.0-96.0); MONO # 0.8 10^3/uL (0.0-0.8); MONO % 9.3 % (2.0-8.0); NEUTROPHILS # 6.3 10^3/uL (1.5-8.5); NEUTROPHILS % 73.9 % (36.0-66.0); PLATELET COUNT, AUTOMATED 305 10^3/uL (150-450); RED BLOOD COUNT 3.88 10^6/uL (4.30-6.10); WHITE BLOOD COUNT 8.5 10^3/uL (4.0-10.0)
[2023-10-24 19:01] LABS: ALBUMIN 3.5 G/DL (3.2-5.2); BILIRUBIN,TOTAL 0.4 MG/DL (0.3-1.2); CALCIUM LEVEL 9.1 MG/DL (8.3-10.6); CREATININE FOR GFR 1.31 MG/DL (0.70-1.30); PERCENT SATURATION 27.4 % (19.7-50.0); POTASSIUM SERUM 5.1 MMOL/L (3.5-5.1); TOTAL PROTEIN 6.6 G/DL (5.7-8.2)
[2023-10-24 19:02] LABS: FERRITIN 411.7 NG/ML (10.5-307.3); FREE T4 1.25 NG/DL (0.89-1.76)
[2023-10-24 19:03] LABS: THYROID STIMULATING HORMONE 1.08 uIU/ML (0.55-4.78)
[2023-10-24 19:05] LABS: FREE T3 3.4 PG/ML (2.3-4.2)
== END ==
LOC: M LAB REF 16:32 → M LABDRAWC 16:32
PROVIDERS: ATTEND Internal Medicine Medical Oncology
DX: Z85.828 Personal history of other malignant neoplasm of skin (principal); D53.9 Nutritional anemia, unspecified; Z79.899 Other long term (current) drug therapy

== ENCOUNTER → 2023-11-13 | Outpatient (REF) | payer MEDICARE, BC ==
[2023-11-13 18:34] LABS: HEMATOCRIT 40.7 % (42.0-52.0); HEMOGLOBIN 13.1 g/dl (13.5-17.5); MEAN CORPUSCULAR HEMOGLOBIN 33.2 pg (27.0-33.0); MEAN CORPUSCULAR HGB CONC 32.2 g/dl (32.0-36.5); MEAN CORPUSCULAR VOLUME 103.3 fl (80.0-96.0); PLATELET COUNT, AUTOMATED 328 10^3/uL (150-450); RED BLOOD COUNT 3.94 10^6/uL (4.30-6.10); WHITE BLOOD COUNT 10.6 10^3/uL (4.0-10.0)
[2023-11-13 18:47] LABS: HEMOGLOBIN A1c 6.2 % (4.0-6.0)
[2023-11-13 19:01] LABS: CALCIUM LEVEL 9.5 MG/DL (8.3-10.6); CHOLESTEROL RISK RATIO 3.98 (<5); CREATININE FOR GFR 1.33 MG/DL (0.70-1.30); GLOMERULAR FILTRATION RATE 55.1 (>35); HDL CHOLESTEROL 33.1 MG/DL (>40); LDL CHOLESTEROL 70.5 MG/DL (<100); NON-HDL-C 98.9 MG/DL; POTASSIUM SERUM 5.2 MMOL/L (3.5-5.1)
== END ==
LOC: M SFHCCLAY 10:17
PROVIDERS: ATTEND Family Medicine
DX: E11.9 Type 2 diabetes mellitus without complications (principal); I10 Essential (primary) hypertension; D50.9 Iron deficiency anemia, unspecified; R06.09 Other forms of dyspnea; J44.9 Chronic obstructive pulmonary disease, unspecified; Z95.5 Presence of coronary angioplasty implant and graft

== ENCOUNTER → 2023-11-13 | Outpatient (REF) | payer MEDICARE, BC ==
[2023-11-13 18:34] LABS: BASO # 0.1 10^3/uL (0.0-0.2); BASO % 0.8 % (0.0-1.0); EOS # 0.2 10^3/uL (0.0-0.5); EOS % 2.2 % (0.0-3.0); HEMATOCRIT 40.5 % (42.0-52.0); HEMOGLOBIN 13.1 g/dl (13.5-17.5); LYMPH % 9.6 % (24.0-44.0); MEAN CORPUSCULAR HEMOGLOBIN 33.4 pg (27.0-33.0); MEAN CORPUSCULAR HGB CONC 32.3 g/dl (32.0-36.5); MEAN CORPUSCULAR VOLUME 103.3 fl (80.0-96.0); MONO # 0.7 10^3/uL (0.0-0.8); NEUTROPHILS # 8.4 10^3/uL (1.5-8.5); NEUTROPHILS % 79.9 % (36.0-66.0); PLATELET COUNT, AUTOMATED 339 10^3/uL (150-450); RED BLOOD COUNT 3.92 10^6/uL (4.30-6.10); WHITE BLOOD COUNT 10.5 10^3/uL (4.0-10.0)
[2023-11-13 19:00] LABS: PERCENT SATURATION 34.3 % (19.7-50.0)
[2023-11-13 19:01] LABS: ALBUMIN 3.5 G/DL (3.2-5.2); BILIRUBIN,TOTAL 0.4 MG/DL (0.3-1.2); CALCIUM LEVEL 9.5 MG/DL (8.3-10.6); CREATININE FOR GFR 1.31 MG/DL (0.70-1.30); POTASSIUM SERUM 5.1 MMOL/L (3.5-5.1); TOTAL PROTEIN 6.7 G/DL (5.7-8.2)
[2023-11-13 19:02] LABS: FERRITIN 355.5 NG/ML (10.5-307.3); FREE T4 1.18 NG/DL (0.89-1.76)
[2023-11-13 19:05] LABS: FREE T3 3.1 PG/ML (2.3-4.2)
== END ==
LOC: M LABDRAWC 17:30
PROVIDERS: ATTEND Internal Medicine Medical Oncology
DX: C44.622 Squamous cell carcinoma of skin of right upper limb, including shoulder (principal)

== ENCOUNTER → 2023-12-22 | Outpatient (REF) | payer MEDICARE, BC ==
[~2023-12-22] MED LIST changes: -KEYT1INJ IV; +PEMB100V2 IV
[2023-12-22 17:40] LABS: BASO # 0.1 10^3/uL (0.0-0.2); BASO % 0.8 % (0.0-1.0); EOS # 0.3 10^3/uL (0.0-0.5); EOS % 2.9 % (0.0-3.0); HEMATOCRIT 38.9 % (42.0-52.0); HEMOGLOBIN 12.6 g/dl (13.5-17.5); LYMPH # 1.5 10^3/uL (1.5-5.0); LYMPH % 15.4 % (24.0-44.0); MEAN CORPUSCULAR HEMOGLOBIN 33.1 pg (27.0-33.0); MEAN CORPUSCULAR HGB CONC 32.4 g/dl (32.0-36.5); MEAN CORPUSCULAR VOLUME 102.1 fl (80.0-96.0); MONO # 0.9 10^3/uL (0.0-0.8); MONO % 9.4 % (2.0-8.0); NEUTROPHILS # 7.1 10^3/uL (1.5-8.5); NEUTROPHILS % 71.1 % (36.0-66.0); PLATELET COUNT, AUTOMATED 488 10^3/uL (150-450); RED BLOOD COUNT 3.81 10^6/uL (4.30-6.10)
[2023-12-22 18:04] LABS: ALBUMIN 3.2 G/DL (3.2-5.2); BILIRUBIN,TOTAL 0.3 MG/DL (0.3-1.2); CALCIUM LEVEL 9.7 MG/DL (8.3-10.6); CREATININE FOR GFR 1.27 MG/DL (0.70-1.30); FREE T4 1.23 NG/DL (0.89-1.76); GLOMERULAR FILTRATION RATE 58.1 (>35); PERCENT SATURATION 31.2 % (19.7-50.0); POTASSIUM SERUM 4.9 MMOL/L (3.5-5.1); TOTAL PROTEIN 6.5 G/DL (5.7-8.2)
[2023-12-22 18:05] LABS: FERRITIN 472.6 NG/ML (10.5-307.3); FREE T3 3.7 PG/ML (2.3-4.2); THYROID STIMULATING HORMONE 0.876 uIU/ML (0.55-4.78)
== END ==
LOC: M LABDRAWC 16:39
PROVIDERS: ATTEND Internal Medicine Medical Oncology
DX: C44.622 Squamous cell carcinoma of skin of right upper limb, including shoulder (principal); C44.629 Squamous cell carcinoma of skin of left upper limb, including shoulder; Z79.899 Other long term (current) drug therapy

== ENCOUNTER → 2024-01-13 | Outpatient (REF) | payer MEDICARE, BC ==
[~2024-01-13] MED LIST changes: +BENZ200C70; +TAMS1CAP17
[2024-01-13 17:18] LABS: BASO # 0.1 10^3/uL (0.0-0.2); EOS # 0.3 10^3/uL (0.0-0.5); EOS % 3.7 % (0.0-3.0); HEMATOCRIT 38.9 % (42.0-52.0); HEMOGLOBIN 12.5 g/dl (13.5-17.5); LYMPH # 1.2 10^3/uL (1.5-5.0); LYMPH % 13.2 % (24.0-44.0); MEAN CORPUSCULAR HEMOGLOBIN 33.2 pg (27.0-33.0); MEAN CORPUSCULAR HGB CONC 32.1 g/dl (32.0-36.5); MEAN CORPUSCULAR VOLUME 103.2 fl (80.0-96.0); MONO # 0.9 10^3/uL (0.0-0.8); MONO % 9.7 % (2.0-8.0); NEUTROPHILS # 6.6 10^3/uL (1.5-8.5); NEUTROPHILS % 72.1 % (36.0-66.0); PLATELET COUNT, AUTOMATED 312 10^3/uL (150-450); RED BLOOD COUNT 3.77 10^6/uL (4.30-6.10); WHITE BLOOD COUNT 9.2 10^3/uL (4.0-10.0)
[2024-01-13 17:21] LABS: ALBUMIN 3.3 G/DL (3.2-5.2); ALKALINE PHOSPHATASE 168 U/L (40-129); ALT/SGPT 29 U/L (7.0-40); AST/SGOT 21 U/L (<34); BILIRUBIN,TOTAL 0.4 MG/DL (0.3-1.2); BLOOD UREA NITROGEN 16 MG/DL (9-23); CALCIUM LEVEL 9.2 MG/DL (8.3-10.6); CARBON DIOXIDE LEVEL 31 MMOL/L (20-31); CHLORIDE LEVEL 107 MMOL/L (98-107); CREATININE FOR GFR 1.15 MG/DL (0.70-1.30); GLOMERULAR FILTRATION RATE > 60.0 (>35); GLUCOSE, FASTING 116 MG/DL (74-106); POTASSIUM SERUM 4.4 MMOL/L (3.5-5.1); SODIUM LEVEL 142 MMOL/L (136-145); TOTAL PROTEIN 6.3 G/DL (5.7-8.2)
[2024-01-13 17:26] LABS: FREE T3 3.4 PG/ML (2.3-4.2); FREE T4 1.09 NG/DL (0.89-1.76); THYROID STIMULATING HORMONE 0.969 uIU/ML (0.55-4.78)
== END ==
LOC: M LABDRAWC 16:38
PROVIDERS: ATTEND Internal Medicine Medical Oncology
DX: C44.92 Squamous cell carcinoma of skin, unspecified (principal); Z79.899 Other long term (current) drug therapy

== ENCOUNTER → 2024-02-02 | Outpatient (REF) | payer MEDICARE, BC ==
[2024-02-02 18:02] LABS: BASO # 0.1 10^3/uL (0.0-0.2); EOS # 0.4 10^3/uL (0.0-0.5); EOS % 3.7 % (0.0-3.0); HEMATOCRIT 38.6 % (42.0-52.0); HEMOGLOBIN 12.2 g/dl (13.5-17.5); LYMPH # 1.3 10^3/uL (1.5-5.0); LYMPH % 12.6 % (24.0-44.0); MEAN CORPUSCULAR HEMOGLOBIN 33.4 pg (27.0-33.0); MEAN CORPUSCULAR HGB CONC 31.6 g/dl (32.0-36.5); MEAN CORPUSCULAR VOLUME 105.8 fl (80.0-96.0); MONO # 0.9 10^3/uL (0.0-0.8); NEUTROPHILS # 7.6 10^3/uL (1.5-8.5); NEUTROPHILS % 73.5 % (36.0-66.0); PLATELET COUNT, AUTOMATED 316 10^3/uL (150-450); RED BLOOD COUNT 3.65 10^6/uL (4.30-6.10); WHITE BLOOD COUNT 10.3 10^3/uL (4.0-10.0)
[2024-02-02 18:37] LABS: THYROID STIMULATING HORMONE 1.063 uIU/ML (0.55-4.78); THYROXINE (T4) 6.4 UG/DL (4.5-10.9)
[2024-02-02 18:45] LABS: ALBUMIN 3.5 G/DL (3.2-5.2); ALKALINE PHOSPHATASE 141 U/L (40-129); ALT/SGPT 31 U/L (7.0-40); AST/SGOT 20 U/L (<34); BILIRUBIN,TOTAL 0.3 MG/DL (0.3-1.2); BLOOD UREA NITROGEN 16 MG/DL (9-23); CALCIUM LEVEL 9.5 MG/DL (8.3-10.6); CARBON DIOXIDE LEVEL 29 MMOL/L (20-31); CHLORIDE LEVEL 107 MMOL/L (98-107); CREATININE FOR GFR 1.15 MG/DL (0.70-1.30); GLOMERULAR FILTRATION RATE > 60.0 (>35); GLUCOSE, FASTING 107 MG/DL (74-106); POTASSIUM SERUM 4.9 MMOL/L (3.5-5.1); SODIUM LEVEL 144 MMOL/L (136-145); TOTAL PROTEIN 6.5 G/DL (5.7-8.2)
[2024-02-02 20:03] LABS: TOTAL T3 117.1 NG/DL (60.0-181.0)
[2024-02-02 20:04] LABS: FREE THYROXINE INDEX 2.2 % (1.4-3.8); T UPTAKE 34.4 % (22.5-37.0)
== END ==
LOC: M LABDRAWC 17:14
PROVIDERS: ATTEND Internal Medicine Medical Oncology
DX: C44.90 Unspecified malignant neoplasm of skin, unspecified (principal); Z79.899 Other long term (current) drug therapy

== ENCOUNTER → 2024-02-23 | Outpatient (REF) | payer MEDICARE, BC ==
[2024-02-23 12:17] LABS: BASO # 0.1 10^3/uL (0.0-0.2); BASO % 1.2 % (0.0-1.0); EOS # 0.5 10^3/uL (0.0-0.5); HEMATOCRIT 37.9 % (42.0-52.0); HEMOGLOBIN 12.1 g/dl (13.5-17.5); LYMPH # 1.4 10^3/uL (1.5-5.0); LYMPH % 14.6 % (24.0-44.0); MEAN CORPUSCULAR HEMOGLOBIN 33.3 pg (27.0-33.0); MEAN CORPUSCULAR HGB CONC 31.9 g/dl (32.0-36.5); MEAN CORPUSCULAR VOLUME 104.4 fl (80.0-96.0); MONO # 0.9 10^3/uL (0.0-0.8); MONO % 10.1 % (2.0-8.0); NEUTROPHILS # 6.4 10^3/uL (1.5-8.5); NEUTROPHILS % 68.8 % (36.0-66.0); PLATELET COUNT, AUTOMATED 348 10^3/uL (150-450); RED BLOOD COUNT 3.63 10^6/uL (4.30-6.10); WHITE BLOOD COUNT 9.3 10^3/uL (4.0-10.0)
[2024-02-23 12:46] LABS: ALBUMIN 3.3 G/DL (3.2-5.2); ALKALINE PHOSPHATASE 148 U/L (40-129); ALT/SGPT 27 U/L (7.0-40); AST/SGOT 21 U/L (<34); BILIRUBIN,TOTAL 0.3 MG/DL (0.3-1.2); BLOOD UREA NITROGEN 18 MG/DL (9-23); CALCIUM LEVEL 9.7 MG/DL (8.3-10.6); CARBON DIOXIDE LEVEL 29 MMOL/L (20-31); CHLORIDE LEVEL 104 MMOL/L (98-107); CREATININE FOR GFR 1.19 MG/DL (0.70-1.30); GLOMERULAR FILTRATION RATE > 60.0 (>35); GLUCOSE, FASTING 108 MG/DL (74-106); IRON (FE) 48 UG/DL (65-175); PERCENT SATURATION 16.8 % (19.7-50.0); POTASSIUM SERUM 4.8 MMOL/L (3.5-5.1); SODIUM LEVEL 140 MMOL/L (136-145); TOTAL IRON BINDING CAPACITY 285 UG/DL (250-425); TOTAL PROTEIN 6.7 G/DL (5.7-8.2)
[2024-02-23 12:48] LABS: FERRITIN 96.6 NG/ML (10.5-307.3); FREE T3 3.7 PG/ML (2.3-4.2); FREE T4 1.03 NG/DL (0.89-1.76); THYROID STIMULATING HORMONE 1.394 uIU/ML (0.55-4.78)
== END ==
LOC: M LABDRAWC 11:11
PROVIDERS: ATTEND Internal Medicine Medical Oncology
DX: C44.622 Squamous cell carcinoma of skin of right upper limb, including shoulder (principal); C44.629 Squamous cell carcinoma of skin of left upper limb, including shoulder; C44.42 Squamous cell carcinoma of skin of scalp and neck; Z86.2 Personal history of diseases of the blood and blood-forming organs and certain disorders involving the immune mechanism; D50.9 Iron deficiency anemia, unspecified

== ENCOUNTER → 2024-03-15 | Outpatient (REF) | payer MEDICARE, BC ==
[2024-03-15 18:22] LABS: BASO # 0.1 10^3/uL (0.0-0.2); EOS # 0.4 10^3/uL (0.0-0.5); HEMATOCRIT 39.9 % (42.0-52.0); HEMOGLOBIN 12.5 g/dl (13.5-17.5); LYMPH # 1.3 10^3/uL (1.5-5.0); LYMPH % 13.3 % (24.0-44.0); MEAN CORPUSCULAR HEMOGLOBIN 32.8 pg (27.0-33.0); MEAN CORPUSCULAR HGB CONC 31.3 g/dl (32.0-36.5); MEAN CORPUSCULAR VOLUME 104.7 fl (80.0-96.0); MONO % 10.5 % (2.0-8.0); NEUTROPHILS # 6.9 10^3/uL (1.5-8.5); NEUTROPHILS % 70.5 % (36.0-66.0); PLATELET COUNT, AUTOMATED 332 10^3/uL (150-450); RED BLOOD COUNT 3.81 10^6/uL (4.30-6.10); WHITE BLOOD COUNT 9.8 10^3/uL (4.0-10.0)
[2024-03-15 18:53] LABS: ALBUMIN 3.7 G/DL (3.2-5.2); BILIRUBIN,TOTAL 0.4 MG/DL (0.3-1.2); CALCIUM LEVEL 9.9 MG/DL (8.3-10.6); CREATININE FOR GFR 1.26 MG/DL (0.70-1.30); GLOMERULAR FILTRATION RATE 58.6 (>35)
[2024-03-15 18:54] LABS: THYROID STIMULATING HORMONE 0.96 uIU/ML (0.55-4.78)
[2024-03-15 18:55] LABS: FERRITIN 68.5 NG/ML (10.5-307.3)
== END ==
LOC: M LABDRAWC 10:50
PROVIDERS: ATTEND Specialist
DX: C44.92 Squamous cell carcinoma of skin, unspecified (principal)

== ENCOUNTER → 2024-04-05 | Outpatient (REF) | payer MEDICARE, BC ==
[~2024-04-05] MED LIST changes: +HYDR25OI TOP
[2024-04-05 17:34] LABS: BASO # 0.1 10^3/uL (0.0-0.2); EOS # 0.5 10^3/uL (0.0-0.5); EOS % 6.1 % (0.0-3.0); HEMATOCRIT 38.8 % (42.0-52.0); HEMOGLOBIN 12.5 g/dl (13.5-17.5); LYMPH # 1.1 10^3/uL (1.5-5.0); LYMPH % 12.2 % (24.0-44.0); MEAN CORPUSCULAR HEMOGLOBIN 32.7 pg (27.0-33.0); MEAN CORPUSCULAR HGB CONC 32.2 g/dl (32.0-36.5); MEAN CORPUSCULAR VOLUME 101.6 fl (80.0-96.0); MONO % 11.8 % (2.0-8.0); NEUTROPHILS # 5.9 10^3/uL (1.5-8.5); NEUTROPHILS % 68.8 % (36.0-66.0); PLATELET COUNT, AUTOMATED 347 10^3/uL (150-450); RED BLOOD COUNT 3.82 10^6/uL (4.30-6.10); WHITE BLOOD COUNT 8.6 10^3/uL (4.0-10.0)
[2024-04-05 18:04] LABS: ALBUMIN 3.4 G/DL (3.2-5.2); BILIRUBIN,TOTAL 0.4 MG/DL (0.3-1.2); CALCIUM LEVEL 9.2 MG/DL (8.3-10.6); CREATININE FOR GFR 1.35 MG/DL (0.70-1.30); GLOMERULAR FILTRATION RATE 54.1 (>35); PERCENT SATURATION 13.2 % (19.7-50.0); POTASSIUM SERUM 4.5 MMOL/L (3.5-5.1); TOTAL PROTEIN 6.5 G/DL (5.7-8.2)
[2024-04-05 18:08] LABS: FREE T4 1.01 NG/DL (0.89-1.76); THYROID STIMULATING HORMONE 0.976 uIU/ML (0.55-4.78)
[2024-04-05 18:09] LABS: FERRITIN 55.5 NG/ML (10.5-307.3)
[2024-04-05 18:11] LABS: FREE T3 3.3 PG/ML (2.3-4.2)
== END ==
LOC: M LABDRAWC 16:43
PROVIDERS: ATTEND Internal Medicine Medical Oncology
DX: C76.8 Malignant neoplasm of other specified ill-defined sites (principal); E07.9 Disorder of thyroid, unspecified

== ENCOUNTER → 2024-04-26 | Outpatient (REF) | payer MEDICARE, BC ==
[2024-04-26 18:10] LABS: BASO # 0.1 10^3/uL (0.0-0.2); BASO % 0.8 % (0.0-1.0); EOS # 0.3 10^3/uL (0.0-0.5); EOS % 2.7 % (0.0-3.0); HEMATOCRIT 36.5 % (42.0-52.0); HEMOGLOBIN 11.7 g/dl (13.5-17.5); LYMPH # 1.3 10^3/uL (1.5-5.0); LYMPH % 12.7 % (24.0-44.0); MEAN CORPUSCULAR HEMOGLOBIN 32.9 pg (27.0-33.0); MEAN CORPUSCULAR HGB CONC 32.1 g/dl (32.0-36.5); MEAN CORPUSCULAR VOLUME 102.5 fl (80.0-96.0); MONO % 9.6 % (2.0-8.0); NEUTROPHILS # 7.3 10^3/uL (1.5-8.5); NEUTROPHILS % 73.8 % (36.0-66.0); PLATELET COUNT, AUTOMATED 321 10^3/uL (150-450); RED BLOOD COUNT 3.56 10^6/uL (4.30-6.10); WHITE BLOOD COUNT 9.9 10^3/uL (4.0-10.0)
[2024-04-26 18:15] LABS: PERCENT SATURATION 16.6 % (19.7-50.0)
[2024-04-26 18:16] LABS: ALBUMIN 3.2 G/DL (3.2-5.2); BILIRUBIN,TOTAL 0.3 MG/DL (0.3-1.2); CALCIUM LEVEL 8.9 MG/DL (8.3-10.6); CREATININE FOR GFR 1.25 MG/DL (0.70-1.30); TOTAL PROTEIN 6.3 G/DL (5.7-8.2)
[2024-04-26 18:23] LABS: FERRITIN 51.8 NG/ML (10.5-307.3); FOLATE 14.5 NG/ML (>5.4)
== END ==
LOC: M LABDRAWC 16:42
PROVIDERS: ATTEND Internal Medicine Medical Oncology
DX: C44.529 Squamous cell carcinoma of skin of other part of trunk (principal)

== ENCOUNTER → 2024-05-17 | Outpatient (REF) | payer MEDICARE, BC ==
[2024-05-17 17:35] LABS: CHOLESTEROL RISK RATIO 3.73 (<5); HDL CHOLESTEROL 38.8 MG/DL (>40); LDL CHOLESTEROL 68.8 MG/DL (<100); NON-HDL-C 106.2 MG/DL
[2024-05-17 17:37] LABS: FREE T4 1.2 NG/DL (0.89-1.76)
[2024-05-17 17:38] LABS: THYROID STIMULATING HORMONE 0.787 uIU/ML (0.55-4.78)
[2024-05-17 17:41] LABS: HEMOGLOBIN A1c 6.6 % (4.0-6.0)
== END ==
LOC: M SFHCCLAY 13:11
PROVIDERS: ATTEND Nurse Practitioner Family
DX: Z00.00 Encounter for general adult medical examination without abnormal findings (principal); Z95.1 Presence of aortocoronary bypass graft; I10 Essential (primary) hypertension; C34.92 Malignant neoplasm of unspecified part of left bronchus or lung; N40.0 Benign prostatic hyperplasia without lower urinary tract symptoms; D50.0 Iron deficiency anemia secondary to blood loss (chronic); E11.51 Type 2 diabetes mellitus with diabetic peripheral angiopathy without gangrene

== ENCOUNTER → 2024-05-17 | Outpatient (REF) | payer MEDICARE, BC ==
[2024-05-17 17:24] LABS: BASO # 0.1 10^3/uL (0.0-0.2); BASO % 0.8 % (0.0-1.0); EOS # 0.4 10^3/uL (0.0-0.5); EOS % 3.3 % (0.0-3.0); HEMOGLOBIN 12.7 g/dl (13.5-17.5); LYMPH # 1.2 10^3/uL (1.5-5.0); LYMPH % 10.5 % (24.0-44.0); MEAN CORPUSCULAR HEMOGLOBIN 32.7 pg (27.0-33.0); MEAN CORPUSCULAR HGB CONC 31.8 g/dl (32.0-36.5); MEAN CORPUSCULAR VOLUME 103.1 fl (80.0-96.0); MONO # 0.7 10^3/uL (0.0-0.8); MONO % 6.4 % (2.0-8.0); NEUTROPHILS # 8.6 10^3/uL (1.5-8.5); NEUTROPHILS % 78.6 % (36.0-66.0); PLATELET COUNT, AUTOMATED 321 10^3/uL (150-450); RED BLOOD COUNT 3.88 10^6/uL (4.30-6.10); WHITE BLOOD COUNT 10.9 10^3/uL (4.0-10.0)
[2024-05-17 17:58] LABS: PERCENT SATURATION 22.4 % (19.7-50.0)
[2024-05-17 17:59] LABS: FREE T4 1.16 NG/DL (0.89-1.76)
[2024-05-17 18:00] LABS: FERRITIN 32.7 NG/ML (10.5-307.3); THYROID STIMULATING HORMONE 0.79 uIU/ML (0.55-4.78)
[2024-05-17 19:17] LABS: ALBUMIN 3.6 G/DL (3.2-5.2); BILIRUBIN,TOTAL 0.3 MG/DL (0.3-1.2); CALCIUM LEVEL 9.3 MG/DL (8.3-10.6); CREATININE FOR GFR 1.3 MG/DL (0.70-1.30); GLOMERULAR FILTRATION RATE 56.4 (>35); POTASSIUM SERUM 5.1 MMOL/L (3.5-5.1); TOTAL PROTEIN 6.9 G/DL (5.7-8.2)
[2024-05-17 19:18] LABS: FOLATE 18.2 NG/ML (>5.4)
== END ==
LOC: M LABDRAWC 17:18
PROVIDERS: ATTEND Internal Medicine Medical Oncology
DX: C44.92 Squamous cell carcinoma of skin, unspecified (principal); Z00.00 Encounter for general adult medical examination without abnormal findings; Z95.1 Presence of aortocoronary bypass graft; I10 Essential (primary) hypertension; C34.92 Malignant neoplasm of unspecified part of left bronchus or lung; N40.0 Benign prostatic hyperplasia without lower urinary tract symptoms; D50.0 Iron deficiency anemia secondary to blood loss (chronic); E11.51 Type 2 diabetes mellitus with diabetic peripheral angiopathy without gangrene

== ENCOUNTER → 2024-06-08 | Outpatient (REF) | payer MEDICARE, BC ==
[2024-06-08 17:52] LABS: BASO # 0.1 10^3/uL (0.0-0.2); BASO % 1.3 % (0.0-1.0); EOS # 0.3 10^3/uL (0.0-0.5); EOS % 4.2 % (0.0-3.0); HEMATOCRIT 38.2 % (42.0-52.0); HEMOGLOBIN 12.2 g/dl (13.5-17.5); LYMPH # 1.2 10^3/uL (1.5-5.0); MEAN CORPUSCULAR HEMOGLOBIN 31.6 pg (27.0-33.0); MEAN CORPUSCULAR HGB CONC 31.9 g/dl (32.0-36.5); MONO # 0.9 10^3/uL (0.0-0.8); MONO % 11.2 % (2.0-8.0); NEUTROPHILS # 5.4 10^3/uL (1.5-8.5); PLATELET COUNT, AUTOMATED 350 10^3/uL (150-450); RED BLOOD COUNT 3.86 10^6/uL (4.30-6.10); WHITE BLOOD COUNT 7.9 10^3/uL (4.0-10.0)
[2024-06-08 18:13] LABS: ALBUMIN 3.5 G/DL (3.2-5.2); BILIRUBIN,TOTAL 0.3 MG/DL (0.3-1.2); CALCIUM LEVEL 9.5 MG/DL (8.3-10.6); CREATININE FOR GFR 1.4 MG/DL (0.70-1.30); GLOMERULAR FILTRATION RATE 51.8 (>35); POTASSIUM SERUM 4.7 MMOL/L (3.5-5.1); TOTAL PROTEIN 6.7 G/DL (5.7-8.2)
[2024-06-08 18:14] LABS: FERRITIN 27.1 NG/ML (10.5-307.3); THYROID STIMULATING HORMONE 1.215 uIU/ML (0.55-4.78)
[2024-06-08 18:15] LABS: FREE T4 1.1 NG/DL (0.89-1.76)
[2024-06-08 18:17] LABS: FREE T3 3.6 PG/ML (2.3-4.2)
== END ==
LOC: M LABDRAWC 17:21
PROVIDERS: ATTEND Internal Medicine Medical Oncology
DX: C44.92 Squamous cell carcinoma of skin, unspecified (principal); Z79.899 Other long term (current) drug therapy

== ENCOUNTER → 2024-06-29 | Outpatient (CLI) | payer MEDICARE, BC ==
[~2024-06-29] MED LIST changes: +TRIA1CR80 TOP
[2024-06-29 12:41] LABS: BASO # 0.1 10^3/uL (0.0-0.2); BASO % 0.8 % (0.0-1.0); EOS # 0.3 10^3/uL (0.0-0.5); EOS % 3.6 % (0.0-3.0); HEMATOCRIT 39.4 % (42.0-52.0); HEMOGLOBIN 12.3 g/dl (13.5-17.5); LYMPH # 0.9 10^3/uL (1.5-5.0); LYMPH % 10.6 % (24.0-44.0); MEAN CORPUSCULAR HEMOGLOBIN 31.6 pg (27.0-33.0); MEAN CORPUSCULAR HGB CONC 31.2 g/dl (32.0-36.5); MEAN CORPUSCULAR VOLUME 101.3 fl (80.0-96.0); MONO # 0.6 10^3/uL (0.0-0.8); MONO % 6.7 % (2.0-8.0); NEUTROPHILS # 6.6 10^3/uL (1.5-8.5); NEUTROPHILS % 77.9 % (36.0-66.0); PLATELET COUNT, AUTOMATED 294 10^3/uL (150-450); RED BLOOD COUNT 3.89 10^6/uL (4.30-6.10); WHITE BLOOD COUNT 8.5 10^3/uL (4.0-10.0)
[2024-06-29 13:10] LABS: ALBUMIN 3.4 G/DL (3.2-5.2); BILIRUBIN,TOTAL 0.4 MG/DL (0.3-1.2); CALCIUM LEVEL 9.4 MG/DL (8.3-10.6); CREATININE FOR GFR 1.39 MG/DL (0.70-1.30); GLOMERULAR FILTRATION RATE 50.9 (>35); POTASSIUM SERUM 5.2 MMOL/L (3.5-5.1); TOTAL PROTEIN 6.5 G/DL (5.7-8.2)
[2024-06-29 13:13] LABS: THYROID STIMULATING HORMONE 1.161 uIU/ML (0.55-4.78)
== END ==
LOC: M LAB 12:05
PROVIDERS: ATTEND Internal Medicine Medical Oncology
DX: C44.90 Unspecified malignant neoplasm of skin, unspecified (principal); E07.9 Disorder of thyroid, unspecified

== ENCOUNTER → 2024-07-19 | Outpatient (REF) | payer MEDICARE, BC ==
[~2024-07-19] MED LIST changes: -FLOM0.4C39 PO; +LEVE1TAB43 PO; -LEVE500T88 PO; +TAMS-18 PO
[2024-07-19 18:15] LABS: BASO # 0.1 10^3/uL (0.0-0.2); BASO % 0.8 % (0.0-1.0); EOS # 0.1 10^3/uL (0.0-0.5); EOS % 1.6 % (0.0-3.0); HEMATOCRIT 40.8 % (42.0-52.0); HEMOGLOBIN 12.8 g/dl (13.5-17.5); LYMPH # 1.2 10^3/uL (1.5-5.0); LYMPH % 16.1 % (24.0-44.0); MEAN CORPUSCULAR HEMOGLOBIN 32.2 pg (27.0-33.0); MEAN CORPUSCULAR HGB CONC 31.4 g/dl (32.0-36.5); MEAN CORPUSCULAR VOLUME 102.5 fl (80.0-96.0); MONO # 0.7 10^3/uL (0.0-0.8); MONO % 9.3 % (2.0-8.0); NEUTROPHILS # 5.3 10^3/uL (1.5-8.5); NEUTROPHILS % 71.8 % (36.0-66.0); PLATELET COUNT, AUTOMATED 328 10^3/uL (150-450); RED BLOOD COUNT 3.98 10^6/uL (4.30-6.10); WHITE BLOOD COUNT 7.4 10^3/uL (4.0-10.0)
[2024-07-19 18:23] LABS: ALBUMIN 3.6 G/DL (3.2-5.2); BILIRUBIN,TOTAL 0.4 MG/DL (0.3-1.2); CALCIUM LEVEL 9.3 MG/DL (8.3-10.6); CREATININE FOR GFR 1.35 MG/DL (0.70-1.30); FREE T4 1.02 NG/DL (0.89-1.76); GLOMERULAR FILTRATION RATE 52.8 (>35); POTASSIUM SERUM 4.5 MMOL/L (3.5-5.1); THYROID STIMULATING HORMONE 0.923 uIU/ML (0.55-4.78); TOTAL PROTEIN 6.6 G/DL (5.7-8.2)
[2024-07-19 18:24] LABS: FERRITIN 104.2 NG/ML (10.5-307.3)
== END ==
LOC: M LABDRAWC 17:26
PROVIDERS: ATTEND Internal Medicine Medical Oncology
DX: C44.92 Squamous cell carcinoma of skin, unspecified (principal); Z79.899 Other long term (current) drug therapy

== ENCOUNTER → 2024-09-20 | Outpatient (REF) | payer MEDICARE, BC ==
[~2024-09-20] MED LIST changes: +PRED10PA2 PO
[2024-09-20 19:02] LABS: BASO # 0.1 10^3/uL (0.0-0.2); BASO % 0.7 % (0.0-1.0); EOS # 0.1 10^3/uL (0.0-0.5); EOS % 1.5 % (0.0-3.0); LYMPH # 1.5 10^3/uL (1.5-5.0); LYMPH % 18.0 % (24.0-44.0); MONO # 0.8 10^3/uL (0.0-0.8); MONO % 9.4 % (2.0-8.0); NEUTROPHILS # 5.6 10^3/uL (1.5-8.5); NEUTROPHILS % 69.9 % (36.0-66.0); PLATELET COUNT, AUTOMATED 359 10^3/uL (150-450)
[2024-09-20 19:05] LABS: ALT/SGPT 25 U/L (7.0-40); AST/SGOT 20 U/L (<34); CALCIUM LEVEL 9.6 MG/DL (8.3-10.6); CARBON DIOXIDE LEVEL 28 MMOL/L (20-31); CHLORIDE LEVEL 105 MMOL/L (98-107); CREATININE FOR GFR 1.30 MG/DL (0.70-1.30); GLOMERULAR FILTRATION RATE 55.2 (>35); IRON (FE) 61 UG/DL (65-175); MAGNESIUM LEVEL 2.2 MG/DL (1.8-2.4); PERCENT SATURATION 18.8 % (19.7-50.0); POTASSIUM SERUM 4.4 MMOL/L (3.5-5.1); SODIUM LEVEL 145 MMOL/L (136-145)
[2024-09-20 19:09] LABS: VITAMIN B12 LEVEL 623 PG/ML (211-911)
== END ==
LOC: M LABDRAWC 17:25
PROVIDERS: ATTEND Internal Medicine Medical Oncology
DX: C44.92 Squamous cell carcinoma of skin, unspecified (principal)

== ENCOUNTER → 2024-10-11 | Outpatient (REF) | payer MEDICARE, BC ==
[2024-10-11 18:14] LABS: IRON (FE) 52.0 UG/DL (65-175); PERCENT SATURATION 15.5 % (19.7-50.0)
[2024-10-11 18:15] LABS: ALT/SGPT 32.0 U/L (7.0-40); AST/SGOT 23.0 U/L (<34); CALCIUM LEVEL 9.5 MG/DL (8.3-10.6); CARBON DIOXIDE LEVEL 30.0 MMOL/L (20-31); CHLORIDE LEVEL 104.0 MMOL/L (98-107); CREATININE FOR GFR 1.34 MG/DL (0.70-1.30); GLOMERULAR FILTRATION RATE 53.2 (>35); POTASSIUM SERUM 5.1 MMOL/L (3.5-5.1); SODIUM LEVEL 145.0 MMOL/L (136-145)
[2024-10-11 18:16] LABS: BASO # 0.1 10^3/uL (0.0-0.2); BASO % 1.0 % (0.0-1.0); EOS # 0.2 10^3/uL (0.0-0.5); EOS % 2.1 % (0.0-3.0); FREE T4 1.24 NG/DL (0.89-1.76); LYMPH # 1.2 10^3/uL (1.5-5.0); LYMPH % 12.7 % (24.0-44.0); MONO # 1.0 10^3/uL (0.0-0.8); MONO % 10.4 % (2.0-8.0); NEUTROPHILS # 6.8 10^3/uL (1.5-8.5); NEUTROPHILS % 73.3 % (36.0-66.0); PLATELET COUNT, AUTOMATED 352 10^3/uL (150-450)
== END ==
LOC: M LABDRAWC 17:45 → M LAB REF 17:45
PROVIDERS: ATTEND Internal Medicine Medical Oncology
DX: C44.92 Squamous cell carcinoma of skin, unspecified (principal); Z79.899 Other long term (current) drug therapy

== ENCOUNTER → 2024-11-01 | Outpatient (REF) | payer MEDICARE, BC ==
[2024-11-01 18:30] LABS: BASO # 0.1 10^3/uL (0.0-0.2); BASO % 0.9 % (0.0-1.0); EOS # 0.2 10^3/uL (0.0-0.5); EOS % 2.3 % (0.0-3.0); LYMPH # 1.0 10^3/uL (1.5-5.0); LYMPH % 13.4 % (24.0-44.0); MONO # 0.9 10^3/uL (0.0-0.8); MONO % 12.5 % (2.0-8.0); NEUTROPHILS # 5.3 10^3/uL (1.5-8.5); NEUTROPHILS % 70.5 % (36.0-66.0); PLATELET COUNT, AUTOMATED 334 10^3/uL (150-450)
[2024-11-01 18:32] LABS: ALT/SGPT 27.0 U/L (7.0-40); AST/SGOT 31.0 U/L (<34); CALCIUM LEVEL 8.7 MG/DL (8.3-10.6); CARBON DIOXIDE LEVEL 26.0 MMOL/L (20-31); CHLORIDE LEVEL 102.0 MMOL/L (98-107); CREATININE FOR GFR 1.41 MG/DL (0.70-1.30); GLOMERULAR FILTRATION RATE 50.1 (>35); IRON (FE) 58.0 UG/DL (65-175); PERCENT SATURATION 20.3 % (19.7-50.0); POTASSIUM SERUM 5.0 MMOL/L (3.5-5.1); SODIUM LEVEL 139.0 MMOL/L (136-145)
[2024-11-01 18:34] LABS: FREE T4 1.27 NG/DL (0.89-1.76)
== END ==
LOC: M LABDRAWC 17:49
PROVIDERS: ATTEND Internal Medicine Medical Oncology
DX: C44.90 Unspecified malignant neoplasm of skin, unspecified (principal); E07.9 Disorder of thyroid, unspecified

== ENCOUNTER → 2024-11-22 | Outpatient (REF) | payer MEDICARE, BC ==
[~2024-11-22] MED LIST changes: -VERA120C3 PO; +VERA120C9 PO
== END ==
LOC: M SFHCDERM 10:30
PROVIDERS: ATTEND Physician Assistant
DX: D49.2 Neoplasm of unspecified behavior of bone, soft tissue, and skin (principal)

== ENCOUNTER → 2024-12-15 | Outpatient (REF) | payer MEDICARE, BC ==
[2024-12-15 18:22] LABS: BASO # 0.1 10^3/uL (0.0-0.2); BASO % 0.9 % (0.0-1.0); EOS # 0.1 10^3/uL (0.0-0.5); EOS % 1.4 % (0.0-3.0); LYMPH # 1.3 10^3/uL (1.5-5.0); LYMPH % 16.4 % (24.0-44.0); MONO # 0.7 10^3/uL (0.0-0.8); MONO % 9.0 % (2.0-8.0); NEUTROPHILS # 5.6 10^3/uL (1.5-8.5); NEUTROPHILS % 71.8 % (36.0-66.0); PLATELET COUNT, AUTOMATED 351 10^3/uL (150-450)
[2024-12-15 18:45] LABS: CHOLESTEROL LEVEL 196.0 MG/DL (<200); CHOLESTEROL RISK RATIO 3.82 (<5); LDL CHOLESTEROL 113.4 MG/DL (<100); NON-HDL-C 144.8 MG/DL; TOTAL 25(OH) VITAMIN D 41.4 NG/ML (20.0-100.0); TRIGLYCERIDES LEVEL 157.0 MG/DL (<150); VITAMIN B12 LEVEL 726.0 PG/ML (211-911)
[2024-12-15 18:59] LABS: ESTIMATED AVERAGE GLUCOSE 151.0 MG/DL (60-110)
== END ==
LOC: M LABDRAWC 17:40
PROVIDERS: ATTEND Nurse Practitioner Family
DX: Z00.00 Encounter for general adult medical examination without abnormal findings (principal)

== ENCOUNTER → 2024-12-15 | Outpatient (REF) | payer MEDICARE, BC ==
[2024-12-15 18:22] LABS: BASO # 0.1 10^3/uL (0.0-0.2); BASO % 0.8 % (0.0-1.0); EOS # 0.1 10^3/uL (0.0-0.5); EOS % 1.7 % (0.0-3.0); LYMPH # 1.3 10^3/uL (1.5-5.0); LYMPH % 16.7 % (24.0-44.0); MONO # 0.8 10^3/uL (0.0-0.8); MONO % 9.6 % (2.0-8.0); NEUTROPHILS # 5.6 10^3/uL (1.5-8.5); NEUTROPHILS % 70.7 % (36.0-66.0); PLATELET COUNT, AUTOMATED 324 10^3/uL (150-450)
[2024-12-15 18:45] LABS: ALT/SGPT 30 U/L (7.0-40); AST/SGOT 21 U/L (<34); CALCIUM LEVEL 9.2 MG/DL (8.3-10.6); CARBON DIOXIDE LEVEL 29 MMOL/L (20-31); CHLORIDE LEVEL 102 MMOL/L (98-107); CREATININE FOR GFR 1.13 MG/DL (0.70-1.30); GLOMERULAR FILTRATION RATE 65.3 (>35); IRON (FE) 121 UG/DL (65-175); MAGNESIUM LEVEL 2.0 MG/DL (1.8-2.4); PERCENT SATURATION 43.2 % (19.7-50.0); POTASSIUM SERUM 4.5 MMOL/L (3.5-5.1); SODIUM LEVEL 141 MMOL/L (136-145); VITAMIN B12 LEVEL 761 PG/ML (211-911)
== END ==
LOC: M LABDRAWC 17:37 → M LAB REF 17:37
PROVIDERS: ATTEND Internal Medicine Medical Oncology
DX: Z00.00 Encounter for general adult medical examination without abnormal findings (principal); C44.92 Squamous cell carcinoma of skin, unspecified; Z79.899 Other long term (current) drug therapy

== ENCOUNTER → 2024-12-23 | Outpatient (CLI) | payer MEDICARE, BC | LOC: M PLAIMG 11:40 | PROVIDERS: ATTEND Psychiatry & Neurology Neurology | DX: I63.9 Cerebral infarction, unspecified (principal); R26.81 Unsteadiness on feet ==

== ENCOUNTER → 2024-12-29 | Outpatient (CLI) | payer MEDICARE, BC | LOC: M ONCR 08:52 | PROVIDERS: ATTEND General Practice | DX: C44.329 Squamous cell carcinoma of skin of other parts of face (principal); C44.621 Squamous cell carcinoma of skin of unspecified upper limb, including shoulder; L57.0 Actinic keratosis; Z77.098 Contact with and (suspected) exposure to other hazardous, chiefly nonmedicinal, chemicals; Z85.118 Personal history of other malignant neoplasm of bronchus and lung; Z80.1 Family history of malignant neoplasm of trachea, bronchus and lung; Z80.8 Family history of malignant neoplasm of other organs or systems; Z79.02 Long term (current) use of antithrombotics/antiplatelets; Z79.52 Long term (current) use of systemic steroids; Z79.620 Long term (current) use of immunosuppressive biologic; Z79.84 Long term (current) use of oral hypoglycemic drugs; Z79.899 Other long term (current) drug therapy ==

== ENCOUNTER → 2025-01-04 | Outpatient (REF) | payer MEDICARE, BC ==
[2025-01-04 18:15] LABS: BASO # 0.1 10^3/uL (0.0-0.2); BASO % 0.8 % (0.0-1.0); EOS # 0.1 10^3/uL (0.0-0.5); EOS % 1.0 % (0.0-3.0); LYMPH # 1.5 10^3/uL (1.5-5.0); LYMPH % 16.0 % (24.0-44.0); MONO # 1.0 10^3/uL (0.0-0.8); MONO % 10.5 % (2.0-8.0); NEUTROPHILS # 6.6 10^3/uL (1.5-8.5); NEUTROPHILS % 71.3 % (36.0-66.0); PLATELET COUNT, AUTOMATED 362 10^3/uL (150-450)
[2025-01-04 18:17] LABS: VITAMIN B12 LEVEL 587.0 PG/ML (211-911)
[2025-01-04 18:20] LABS: ALT/SGPT 20.0 U/L (7.0-40); AST/SGOT 13.0 U/L (<34); CALCIUM LEVEL 9.4 MG/DL (8.3-10.6); CARBON DIOXIDE LEVEL 28.0 MMOL/L (20-31); CHLORIDE LEVEL 103.0 MMOL/L (98-107); CREATININE FOR GFR 1.22 MG/DL (0.70-1.30); GLOMERULAR FILTRATION RATE 59.6 (>35); IRON (FE) 89.0 UG/DL (65-175); PERCENT SATURATION 28.6 % (19.7-50.0); POTASSIUM SERUM 4.2 MMOL/L (3.5-5.1); SODIUM LEVEL 141.0 MMOL/L (136-145)
[2025-01-06 14:33] LABS: THYROXINE (T4) 5.5 UG/DL (4.5-10.9)
[2025-01-06 16:06] LABS: TOTAL T3 87.2 NG/DL (60.0-181.0)
== END ==
LOC: M LABDRAWC 17:12
PROVIDERS: ATTEND Internal Medicine Medical Oncology
DX: C44.92 Squamous cell carcinoma of skin, unspecified (principal); Z79.899 Other long term (current) drug therapy

== ENCOUNTER 2025-01-05 10:55 | Outpatient (RCR) | payer MEDICARE, BC | END 2025-01-14 | LOC: M ONCR 10:55 | PROVIDERS: ATTEND General Practice | DX: Z51.0 Encounter for antineoplastic radiation therapy (principal); C44.320 Squamous cell carcinoma of skin of unspecified parts of face ==

== ENCOUNTER 2025-01-25 10:03 | Outpatient (RCR) | payer MEDICARE, BC ==
[2025-02-15] MEDS ORDERED: PRED5TA PO (16:27)
== END 2025-02-13 ==
LOC: M ONCR 10:03
PROVIDERS: ATTEND General Practice
DX: Z51.0 Encounter for antineoplastic radiation therapy (principal); C44.320 Squamous cell carcinoma of skin of unspecified parts of face

== ENCOUNTER → 2025-02-24 | Outpatient (REF) | payer MEDICARE, BC | LOC: M SFHCDERM 17:43 | PROVIDERS: ATTEND Physician Assistant | DX: C44.529 Squamous cell carcinoma of skin of other part of trunk (principal) ==

== ENCOUNTER → 2025-02-25 | Outpatient (CLI) | payer MEDICARE, BC | LOC: M RAD 14:32 | PROVIDERS: ATTEND Psychiatry & Neurology Neurology | DX: I63.9 Cerebral infarction, unspecified (principal); R26.81 Unsteadiness on feet ==

== ENCOUNTER → 2025-03-14 | Outpatient (REF) | payer MEDICARE, BC ==
[~2025-03-14] MED LIST changes: +AMLO1TAB24 PO; +ASPI81CH8 PO; +CLOB5CR TOP; +LEVOTAB10 PO; +QUET1TAB17 PO; -TAMS1CAP17; +TAMS1CAP17 PO; +[UNRECOGNIZED DRUG - CODE]
[2025-03-14 18:41] LABS: BASO # 0.1 10^3/uL (0.0-0.2); BASO % 0.9 % (0.0-1.0); EOS # 0.1 10^3/uL (0.0-0.5); EOS % 1.1 % (0.0-3.0); LYMPH # 1.1 10^3/uL (1.5-5.0); LYMPH % 11.7 % (24.0-44.0); MONO # 1.1 10^3/uL (0.0-0.8); MONO % 11.7 % (2.0-8.0); NEUTROPHILS # 6.6 10^3/uL (1.5-8.5); NEUTROPHILS % 73.9 % (36.0-66.0); PLATELET COUNT, AUTOMATED 343 10^3/uL (150-450)
[2025-03-14 18:48] LABS: ALT/SGPT 17.0 U/L (7.0-40); AST/SGOT 16.0 U/L (<34); CALCIUM LEVEL 9.1 MG/DL (8.3-10.6); CARBON DIOXIDE LEVEL 28.0 MMOL/L (20-31); CHLORIDE LEVEL 100.0 MMOL/L (98-107); CREATININE FOR GFR 1.3 MG/DL (0.70-1.30); GLOMERULAR FILTRATION RATE 55.2 (>35); IRON (FE) 48.0 UG/DL (65-175); PERCENT SATURATION 14.1 % (19.7-50.0); POTASSIUM SERUM 4.2 MMOL/L (3.5-5.1); SODIUM LEVEL 139.0 MMOL/L (136-145)
[2025-03-14 18:50] LABS: FREE T4 1.18 NG/DL (0.89-1.76)
== END ==
LOC: M LAB REF 17:27 → M LABDRAWC 17:27
PROVIDERS: ATTEND Internal Medicine Medical Oncology
DX: C44.529 Squamous cell carcinoma of skin of other part of trunk (principal)